=== PATIENT | male | born 2000 | race Caucasian/White ===

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

== ENCOUNTER 2020-10-10 10:08 | Emergency (ER) | payer BC, MEDICAID ==
[~2020-10-10] VITALS: Ht 185.4 cm; Wt 63.6 kg
[2020-10-10] MEDS ORDERED: METH4TAB10 PO (11:32)
[2020-10-10] MEDS ORDERED: NAPR-1071 PO (11:32)
--- NOTE | 2020-10-10 11:32 | ED Upper Extremity ---
General Chief Complaint: Upper Extremity Stated Complaint: L SHOULDER PAIN Nursing Triage Note: AMB TO ROOM REPORT ON SUN WOKE UP AND ARM WAS SORE UNABLE TO MOVE IT WITHOUT PAIN. HAS NOT TAKEN ANYTHING OTC FOR PAIN. HAS NOT GONE TO WORK Source: patient Exam Limitations: no limitations History of Present Illness Date Seen by Provider: Oct 10, 2020 Time Seen by Provider: 10:49 Initial Comments Patient presents ER by private conveyance from home with chief complaint of Friday he woke up with pain and weakness in his left arm. He did not take anything for it. It has only improved slightly today and he is able to move it but he has weakness on trying to abduct the left shoulder. He does not member any trauma he has not done any drinking or blackout. No previous injury to his neck or back. He says it hurts from the level of C2 laterally down to the trapezius and proximal to the acromioclavicular joint. He was having some paresthesias on Friday and yesterday but none today. 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 Allergies and Home Medications Allergies Coded Allergies: No Known Allergies (Unverified Allergy, Mild, 07/13/09) Home Medications Amoxicillin 875 Mg Tablet, 875 MG PO BID Prescribed by: MELISSA FLORENTINO on 03/03/151826 Patient Home Medication List Home Medication List Reviewed: Yes Review of Systems Constitutional: No chills, No diaphoresis EENTM: No ear discharge, No ear pain Respiratory: No cough, No short of breath Cardiovascular: No chest pain, No edema Gastrointestinal: No abdominal pain, No nausea, No vomiting Genitourinary: No discharge, No dysuria Musculoskeletal: No back pain; neck pain All Other Systems Reviewed Negative Unless Noted: Yes Past Xgqanoc-Elifos-Hhqciz Hx Patient Social History Tobacco Use?: No Substance use?: No Alcohol Use?: No Pt feels they are or have been: No Immunizations Up To Date Influenza Vaccine Up-to-Date: No; Not Current First/Initial COVID19 Vaccinat: NOT TAKEN Seasonal Allergies Seasonal Allergies: No Past Medical History Surgeries: No Respiratory: No Cardiac: No Neurological: No Gastrointestinal: No Musculoskeletal: No Endocrine: No Cancer: No Psychosocial: No Integumentary: No Physical Exam Vital Signs Vital Signs - First Documented 10/10/20 10:44 Temp 35.6 Pulse 85 Resp 18 B/P (MAP) 132/59 (83) Pulse Ox 100 O2 Delivery Room Air Capillary Refill : Less Than 3 Seconds Height, Weight, BMI Height: 5'7.00" Weight: 120lbs. 12.0oz. 54.234355xo; 18.00 BMI Method:Estimated General Appearance: WD/WN, no apparent distress HEENT: PERRL/EOMI, pharynx normal Neck: full range of motion, supple, normal inspection, tender lateral (Left side) Cardiovascular: normal peripheral pulses, regular rate, rhythm Respiratory: no respiratory distress, no accessory muscle use Back: normal inspection, no vertebral tenderness Shoulder: non-tender, asymmetry (Left shoulder droop), limited ROM (Difficulty abducting beyond 70 degrees), soft tissue tenderness (Top of the trapezius left side) Elbow/Forearm: normal inspection, non-tender, no evidence of injury, normal ROM, Right, Left, Bilateral Reflexes: 2+ bicep (R), 2+ bicep (L) Neurologic/Tendon: normal sensation, normal motor functions, normal tendon functions, responds to pain, no evidence tendon injury Neurologic/Psychiatric: alert, normal mood/affect, oriented x 3 Skin: normal color, warm/dry Progress/Results/Core Measures Results/Orders Vital Signs/I&O 10/10/20 10:44 Temp 35.6 Pulse 85 Resp 18 B/P (MAP) 132/59 (83) Pulse Ox 100 O2 Delivery Room Air Blood Pressure Mean: 83 Progress Progress Note : Time: 11:30 Progress Note I suspect he has a cervical radiculopathy from throwing heavy objects at work. He would best be served with a week of weight restriction on that side and a course of steroids and NSAIDs. We will have him follow-up in 1 to 2 weeks with primary care for reevaluation. Departure Impression Primary Impression: Left cervical radiculopathy Disposition: 01 HOME, SELF-CARE Condition: Stable Departure-Patient Inst. Decision time for Depature: 11:30 Referrals: JOSH JIMENEZ MD (PCP/Family) Primary Care Physician Patient Instructions: Radiculopathy (DC) Add. Discharge Instructions: Heat and topical creams can be helpful for your discomfort in your neck and shoulder. Tylenol 1000 mg every 8 hours as necessary for pain. Naproxen 500 mg twice a day for the next 1 to 2 weeks until the symptoms go away. Medrol Dosepak take as directed to reduce inflammation and swelling in your neck that is pinching on the nerve. If not seeing improvement in the first week then follow-up with your primary care doctor for reevaluation and further management. Do not lift greater than 20 pounds with your left arm for the next 1 week. All discharge instructions reviewed with patient and/or family. Voiced understanding. Scripts Naproxen (Naprosyn) 500 Mg Tablet 500 MG PO BID for 14 Days, #30 TAB 0 Refills Prov: SCHUYLER MURRAY 10/10/20 Methylprednisolone (Methylprednisolone Dose Pack) 4 Mg Tab.ds.pk 4 MG PO UD for 6 Days, #21 PKG 0 Refills PER DOSE PACK INSTRUCTIONS Prov: SCHUYLER MURRAY 10/10/20 Work/School Note: Work Release Form Date Seen in the Emergency Department: Oct 10, 2020 Return to Work: Oct 11, 2020 Restrictions: Need Release from Doctor Other Restrictions Listed Below: Do not lift more than 20 pounds with left arm until 10/17/2020. SCHUYLER MURRAY Oct 10, 2020 11:32
[2020-10-10 11:41] VITALS: BP 132/59
== END 2020-10-10 11:41 | disposition home or self-care (01) ==
LOC: EDUNIT# 10:08 → ER 10:10
DX: M54.12 Radiculopathy, cervical region (principal)
CPT/HCPCS: 99282

== ENCOUNTER 2021-04-04 19:21 | Emergency (ER) | payer SELFPAY ==
[~2021-04-04] VITALS: Ht 185 cm; Wt 63.5 kg
[~2021-04-04 19:21] MED LIST changes: +METH4TAB10 PO; +NAPR-1071 PO
[2021-04-04 19:57] LABS: BASOPHILS % (AUTO) 1 % (0-10); EOSINOPHILS % (AUTO) 0 % (0-10); HEMATOCRIT 47 % (40-54); HEMOGLOBIN 16.2 g/dL (13.3-17.7); LYMPHOCYTES # (AUTO) 1.5 10^3/uL (1.0-4.0); LYMPHOCYTES % (AUTO) 24 % (12-44); MEAN CORPUSCULAR HEMOGLOBIN 30 pg (25-34); MEAN CORPUSCULAR HGB CONC 35 g/dL (32-36); MEAN CORPUSCULAR VOLUME 87 fL (80-99); MEAN PLATELET VOLUME 9.6 fL (9.0-12.2); MONOCYTES # (AUTO) 0.6 10^3/uL (0.0-1.0); MONOCYTES % (AUTO) 10 % (0-12); NEUTROPHILS % (AUTO) 65 % (42-75); PLATELET COUNT 272 10^3/uL (130-400); WHITE BLOOD COUNT 6.2 10^3/uL (4.3-11.0)
--- NOTE | 2021-04-04 20:06 | ED Chest Pain ---
General Chief Complaint: Chest Pain Stated Complaint: CHEST PAIN Source: patient Exam Limitations: no limitations History of Present Illness Date Seen by Provider: Apr 04, 2021 Time Seen by Provider: 19:39 Initial Comments Patient ER by private conveyance with chief complaint about 2 to 3 days of left- sided chest pain sometimes radiating through to the right side of his chest. Nursing reports his heart rate is around 105 on arrival and since she started an IV his heart rate jumped up to the 1 25-1 30 range. Patient states he has a lot of anxiety and he feels that has been out of control lately. He has not followed with a doctor since he was a teenager and then it was Dr. Dockery. He does not take any medicines routinely. He does smoke certain varieties of marijuana/cannabis in order to control his anxiety at home. He denies any other recreational drugs or stimulants. He occasionally drinks with his last drink being over a week ago. He does not smoke cigarettes but he does vape nicotine. He is not had any fevers chills nausea vomiting coughs malaise body aches or other symptoms of sickness. No drinking from unsafe water sources or travel abroad recently. He has not been vaccinated for COVID-19 or influenza. He had no known sick contacts. No history of heart problems or dysrhythmias. No known history of hypertension, hyperlipidemia, diabetes or primary family early onset coronary disease. Allergies and Home Medications Allergies Coded Allergies: No Known Allergies (Unverified Allergy, Mild, 07/13/09) Patient Home Medication List Home Medication List Reviewed: Yes Amoxicillin (Amoxicillin) 875 Mg Tablet, 875 MG PO BID Prescribed by: MELISSA FLORENTINO on 03/03/151826 Methylprednisolone (Methylprednisolone Dose Pack) 4 Mg Tab.ds.pk, 4 MG PO UD Prescribed by: SCHUYLER MURRAY on 10/10/20 1132 Naproxen (Naprosyn) 500 Mg Tablet, 500 MG PO BID Prescribed by: SCHUYLER MURRAY on 10/10/20 1132 Review of Systems Review of Systems Constitutional: No chills, No fever, No malaise, No weakness EENTM: No Blurred Vision, No Double Vision Respiratory: Denies Cough, Denies Orthopnea Cardiovascular: See HPI, Chest Pain; Denies Irregular Heart Rate, Denies Lightheadedness, Denies Palpitations, Denies Syncope Gastrointestinal: Denies Constipated, Denies Diarrhea, Denies Difficulty Swallowing, Denies Nausea, Denies Poor Appetite Genitourinary: Denies Discharge, Denies Drainage Musculoskeletal: No back pain, No joint pain All Other Systems Reviewed Negative Unless Noted: Yes Past Qoxyrmk-Ybfxni-Hwmaak Hx Patient Social History Tobacco Use?: No Use of E-Cig and/or Vaping dev: Yes E-Cig or Vaping type used: Nicotine Substance use?: Yes Substance type: Marijuana Substance frequency: Daily Alcohol Use?: Yes Alcohol type: Beer Alcohol Frequency: Several times a month Seasonal Allergies Seasonal Allergies: No Past Medical History Surgeries: No Respiratory: No Cardiac: No Neurological: No Gastrointestinal: No Musculoskeletal: No Endocrine: No Cancer: No Psychosocial: No Integumentary: No Physical Exam Vital Signs Vital Signs - First Documented 04/04/21 19:31 Temp 36.8 Pulse 106 Resp 20 B/P (MAP) 134/81 (98) Pulse Ox 97 O2 Delivery Room Air Capillary Refill : Height, Weight, BMI Height: 5'7.00" Weight: 120lbs. 12.0oz. 54.819568cy; 18.00 BMI Method:Estimated General Appearance: Anxious, Mild Distress, Thin HEENT: PERRL/EOMI, TMs Normal, Normal ENT Inspection, Pharynx Normal, Moist Mucous Membranes Neck: Full Range of Motion, Normal Inspection, Non Tender Respiratory: Lungs Clear, Normal Breath Sounds, No Accessory Muscle Use, No Respiratory Distress Cardiovascular: Regular Rate, Rhythm, No Edema, No Murmur, Normal Peripheral Pulses Gastrointestinal: Normal Bowel Sounds, No Organomegaly, Non Tender, Soft Extremity: Normal Capillary Refill, Normal Inspection, Normal Range of Motion, Non Tender, No Calf Tenderness, No Pedal Edema Neurologic/Psychiatric: Alert, Oriented x3, No Motor/Sensory Deficits Skin: Normal Color, Warm/Dry Progress/Results/Core Measures Results/Orders Lab Results Laboratory Tests Test 04/04/21 19:40 Range/Units White Blood Count 6.2 4.3-11.0 10^3/uL Red Blood Count 5.37 4.30-5.52 10^6/uL Hemoglobin 16.2 13.3-17.7 g/dL Hematocrit 47 40-54 % Mean Corpuscular Volume 87 80-99 fL Mean Corpuscular Hemoglobin 30 25-34 pg Mean Corpuscular Hemoglobin Concent 35 32-36 g/dL Red Cell Distribution Width 11.9 10.0-14.5 % Platelet Count 272 130-400 10^3/uL Mean Platelet Volume 9.6 9.0-12.2 fL Immature Granulocyte % (Auto) 0 % Neutrophils (%) (Auto) 65 42-75 % Lymphocytes (%) (Auto) 24 12-44 % Monocytes (%) (Auto) 10 0-12 % Eosinophils (%) (Auto) 0 0-10 % Basophils (%) (Auto) 1 0-10 % Neutrophils # (Auto) 4.0 1.8-7.8 10^3/uL Lymphocytes # (Auto) 1.5 1.0-4.0 10^3/uL Monocytes # (Auto) 0.6 0.0-1.0 10^3/uL Eosinophils # (Auto) 0.0 0.0-0.3 10^3/uL Basophils # (Auto) 0.0 0.0-0.1 10^3/uL Immature Granulocyte # (Auto) 0.0 0.0-0.1 10^3/uL D-Dimer <= 0.27 0.00-0.49 UG/ML Sodium Level 140 135-145 MMOL/L Potassium Level 3.6 3.6-5.0 MMOL/L Chloride Level 104 98-107 MMOL/L Carbon Dioxide Level 23 21-32 MMOL/L Anion Gap 13 5-14 MMOL/L Blood Urea Nitrogen 10 7-18 MG/DL Creatinine 0.98 0.60-1.30 MG/DL Estimat Glomerular Filtration Rate 98 BUN/Creatinine Ratio 10 Glucose Level 98 70-105 MG/DL Calcium Level 9.7 8.5-10.1 MG/DL Corrected Calcium 8.5-10.1 MG/DL Total Bilirubin 0.5 0.1-1.0 MG/DL Aspartate Amino Transf (AST/SGOT) 20 5-34 U/L Alanine Aminotransferase (ALT/SGPT) 17 0-55 U/L Alkaline Phosphatase 69 40-136 U/L Troponin I < 0.028 <0.028 NG/ML C-Reactive Protein High Sensitivity 0.03 0.00-0.50 MG/DL Total Protein 7.8 6.4-8.2 GM/DL Albumin 4.9 H 3.2-4.5 GM/DL My Orders Orders - TREVOR,SCHUYLER J Continuous Ekg Monitoring (04/04/21 19:47) Ekg Tracing (04/04/21 19:47) Cbc With Automated Diff (04/04/21 19:47) Comprehensive Metabolic Panel (04/04/21 19:47) Hs C Reactive Protein (04/04/21 19:47) Chest 1 View, Ap/Pa Only (04/04/21 19:47) Troponin I Christiano (04/04/21 19:47) Fibrin Degradation Products (04/04/21 19:47) Ed Iv/Invasive Line Start (04/04/21 20:11) Lactated Ringers (Lr 1000 Ml Iv Solution (04/04/21 20:15) Medications Given in ED Current Medications Medications Dose Ordered Sig/Maite Route Start Time Stop Time Status Last Admin Dose Admin Lactated Ringer's 1,000 ml @ 0 mls/hr Q0M ONCE IV 04/04/21 20:15 04/04/21 20:16 DC 04/04/21 20:50 0 MLS/HR Vital Signs/I&O 04/04/21 19:31 Temp 36.8 Pulse 106 Resp 20 B/P (MAP) 134/81 (98) Pulse Ox 97 O2 Delivery Room Air Progress Progress Note #1: Time: 20:10 Progress Note The patient is very thin but appears well-hydrated. We will give him a liter of lactated Ringer's check an EKG and some labs. Likely this is anxiety however we will get a D-dimer and troponin. Just sinus tachycardia on the strip. Progress Note #2: Time: 22:04 Progress Note After fluids patient's heart rate is in the 90s however soon as I enter the room it Jumps up to 110 115 heart rate. He appears rather anxious. We will recommend hydroxyzine in case he gets out of control. We suggest follow-up with primary care to explore thyroid and other reasons might contribute to his symptoms. If no significant pathology is found then we have encouraged him to discuss antianxiety medications with primary care. Patient states this is a good idea and agrees with plan. Return precautions were discussed. He is not having any chest pain at this time Initial ECG Impression Date: Apr 04, 2021 Initial ECG Impression Time: 19:32 Initial ECG Rate: 108 Initial ECG Rhythm: S.Tach Initial ECG Intervals: Normal Initial ECG Impression: Normal Comment Sinus tachycardia without clinically relevant ST elevation or depression. LVH noted. High amplitude waves likely due to his thin body habitus. Diagnostic Imaging Diagonstic Imaging: Xray Plain Films/CT/US/NM/MRI: chest Comments [facility] [place], [place] NAME: DONNA FAIR MED REC#: [id number] PT STATUS: REG ER : 2000 PHYSICIAN: SCHUYLER MURRAY MD ADMIT DATE: 04/04/21/ER Draft Date of Exam:04/04/21 CHEST 1 VIEW, AP/PA ONLY CLINICAL INDICATIONS: Patient with shortness of air and chest pain. EXAM: Portable chest x-ray upright view. COMPARISON: None. FINDINGS: Lungs/pleura: Lungs are clear. There is no pneumothorax. There is no pleural effusion. Mediastinum: Unremarkable. Pulmonary vasculature: Unremarkable. Heart: Unremarkable. Bones/extrathoracic soft tissue: Unremarkable. IMPRESSION: There is no radiographic evidence of acute cardiopulmonary process. Dictated on workstation # [id number] Dict: 04/04/212016 Trans: 04/04/212022 CV [id number] Interpreted by: HARLAN BALLARD MD Electronically signed by: Reviewed: Reviewed by Me Departure Impression Primary Impression: Chest wall pain Additional Impression: Anxiety Disposition: 01 HOME, SELF-CARE Condition: Stable Departure-Patient Inst. Decision time for Depature: 22:06 Referrals: JOSH JIMENEZ MD (PCP/Family) Primary Care Physician Patient Instructions: Chest Pain That Is Not Caused by the Heart (DC), Anxiety, Adult (DC) Add. Discharge Instructions: Drink plenty of fluids. Discuss your symptoms with your primary care doctor and see whether work-up might be indicated on an outpatient basis. Discuss whether preventative medication for anxiety might be beneficial to you. If you have severe anxiety attack again you can take 1 tablet of hydroxyzine, 25 mg every 6 hours. If you not seeing some results in 30 minutes then you may take a second tablet. All discharge instructions reviewed with patient and/or family. Voiced understanding. Scripts Hydroxyzine HCl (Hydroxyzine HCl) 25 Mg Tablet 25-50 MG PO Q6H PRN for ANXIETY, #20 TAB 0 Refills Prov: SCHUYLER MURRAY 04/04/21 Copy Copies To 1: JOSH JIMENEZ MD, TITUS J Apr 04, 2021 20:06
[2021-04-04 20:07] LABS: ALANINE AMINOTRANSFERASE 17 U/L (0-55); ALBUMIN 4.9 GM/DL (3.2-4.5); ALKALINE PHOSPHATASE 69 U/L (40-136); BILIRUBIN,TOTAL 0.5 MG/DL (0.1-1.0); BUN/CREATININE RATIO 10; CALCIUM 9.7 MG/DL (8.5-10.1); CARBON DIOXIDE 23 MMOL/L (21-32); CREATININE SERUM 0.98 MG/DL (0.60-1.30); GFR ESTIMATED 98; GLUCOSE 98 MG/DL (70-105); TOTAL PROTEIN 7.8 GM/DL (6.4-8.2)
[2021-04-04] MEDS ORDERED: LACTATED RINGERS 1,000 ML IV ONE (20:15)
[2021-04-04 20:24] LABS: CHLORIDE 104 MMOL/L (98-107); POTASSIUM 3.6 MMOL/L (3.6-5.0); SODIUM 140 MMOL/L (135-145)
--- NOTE | 2021-04-04 20:24 | Diagnostic Imaging Report ---
CLINICAL INDICATIONS: Patient with shortness of air and chest pain. EXAM: Portable chest x-ray upright view. COMPARISON: None. FINDINGS: Lungs/pleura: Lungs are clear. There is no pneumothorax. There is no pleural effusion. Mediastinum: Unremarkable. Pulmonary vasculature: Unremarkable. Heart: Unremarkable. Bones/extrathoracic soft tissue: Unremarkable. IMPRESSION: There is no radiographic evidence of acute cardiopulmonary process. Dictated by: Dictated on workstation # [id number]
[2021-04-04] MEDS ORDERED: HYDR-700 PO (22:07)
[2021-04-04] MEDS ORDERED: hydrOXYzine (VISTARIL/ATARAX) 25 MG capsule/tablet PO ONE (22:15)
[2021-04-04 22:20] VITALS: BP 139/85
== END 2021-04-04 22:20 | disposition home or self-care (01) ==
LOC: EDUNIT# 19:21 → ER 19:23
DX: R07.89 Other chest pain (principal); F41.9 Anxiety disorder, unspecified
CPT/HCPCS: 36415; 71045; 80053; 84484; 85025; 85379; 86141; 93005

== ENCOUNTER 2021-09-28 16:42 | Emergency (ER) | payer SELFPAY ==
[~2021-09-28] VITALS: Ht 172.7 cm; Wt 61.2 kg
[~2021-09-28 16:42] MED LIST changes: +HYDR-700 PO
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
[2021-09-28] MEDS ORDERED: KETOROLAC 60 MG/2 ML VIAL IM ONE (17:00)
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
[2021-09-28] MEDS ORDERED: IBUPROFEN 800 MG (MOTRIN) TAB PO ONE ×2 (17:22→17:30)
[2021-09-28] MEDS ORDERED: ACETAMINOPHEN 325 MG TABLET ONE (17:22)
[2021-09-28] MEDS ORDERED: ACETAMINOPHEN 325 MG TABLET PO ONE (17:30)
[2021-09-28 18:03] VITALS: BP 127/68
== END 2021-09-28 18:03 | disposition home or self-care (01) ==
LOC: EDUNIT# 16:42 → ER 16:44
DX: S20.211A Contusion of right front wall of thorax, initial encounter (principal); Z28.310 Unvaccinated for COVID-19; Y04.2XXA Assault by strike against or bumped into by another person, initial encounter
CPT/HCPCS: 71046

== ENCOUNTER 2022-08-23 23:45 | Inpatient (IN) | payer SELFPAY ==
[~2022-08-23] VITALS: Ht 182.9 cm; Wt 75.7 kg
[2022-08-24] VITALS (12 sets, daily range): BP systolic 123–173; BP diastolic 82–111
--- NOTE | 2022-08-24 00:07 | ED Abdominal Pain ---
General Chief Complaint: Abdominal/GI Problems Stated Complaint: ABD PAIN Nursing Triage Note: left sided abdominal pain x2 days, worse x1hr. vomitting, decreased po intake. constipation. Source of Information: Patient Exam Limitations: No Limitations History of Present Illness Date Seen by Provider: August 23, 2022 Time Seen by Provider: 23:59 Initial Comments This 21-year-old young man presents to the emergency room with complaints of ep igastric and left upper quadrant pain with nausea and vomiting. He has had the pain for a few days but the vomiting started tonight. He had diarrhea this morning as well. He took Pepto-Bismol without any improvement. He reports drinking vodka, usually about 10 shots per day. He stopped drinking alcohol for a couple of days and then resumed tonight prior to the vomiting starting. He denies any drug use. He denies any other medical problems and has no local medical provider. Allergies and Home Medications Allergies Coded Allergies: NKANo Known Allergies (Unverified Allergy, Mild, 07/13/09) Patient Home Medication List Home Medication List Reviewed: Yes No Active Prescriptions or Reported Meds Review of Systems Review of Systems Constitutional: no symptoms reported EENTM: No Symptoms Reported Respiratory: No Symptoms Reported Cardiovascular: No Symptoms Reported Gastrointestinal: See HPI Genitourinary: No Symptoms Reported Musculoskeletal: no symptoms reported Skin: no symptoms reported Psychiatric/Neurological: No Symptoms Reported Endocrine: No Symptoms Reported Hematologic/Lymphatic: No Symptoms Reported Past Dwdybqg-Fjgqzw-Fdtwjj Hx Patient Social History Tobacco Use?: Yes Use of E-Cig and/or Vaping dev: Yes E-Cig or Vaping type used: Nicotine Use of E-Cig and/or Vaping Mirza: Current Everyday User Substance use?: No Alcohol Use?: Yes Alcohol type: Hard Liquor Alcohol Frequency: Daily Pt feels they are or have been: No Immunizations Up To Date First/Initial COVID19 Vaccinat: x2 Seasonal Allergies Seasonal Allergies: No Past Medical History Surgery/Hospitalization HX: denies Surgeries: No Respiratory: No Cardiac: No Neurological: No Gastrointestinal: No Musculoskeletal: No Endocrine: No Cancer: No Psychosocial: No Integumentary: No Physical Exam Vital Signs Vital Signs - First Documented 08/23/22 23:50 Temp 36.3 Pulse 106 Resp 22 B/P (MAP) 175/92 (119) Pulse Ox 97 O2 Delivery Room Air Capillary Refill : Less Than 3 Seconds Height/Weight/BMI Height: 5'7.00" Weight: 120lbs. 12.0oz. 54.643463um; 19.00 BMI Method:Estimated General Appearance: WD/WN, mild distress HEENT: PERRL/EOMI, normal ENT inspection Neck: normal inspection Respiratory: lungs clear, normal breath sounds, no respiratory distress Cardiovascular: no edema, no murmur, tachycardia Gastrointestinal: soft, abnormal bowel sounds (Decreased); No distended; guarding (In the epigastrium), tenderness (Epigastrium and left upper quadrant) Extremities: normal inspection, no pedal edema Neurologic/Psychiatric: no motor/sensory deficits, alert, oriented x 3, other (Somewhat anxious) Skin: normal color, warm/dry Progress/Results/Core Measures Results/Orders Lab Results Laboratory Tests Test 08/23/22 23:56 08/24/22 00:12 Range/Units Urine Color YELLOW Urine Clarity CLEAR Urine pH 6.0 5-9 Urine Specific Cash 1.010 L 1.016-1.022 Urine Protein 1+ H NEGATIVE Urine Glucose (UA) NEGATIVE NEGATIVE Urine Ketones NEGATIVE NEGATIVE Urine Nitrite NEGATIVE NEGATIVE Urine Bilirubin NEGATIVE NEGATIVE Urine Urobilinogen 0.2 < = 1.0 MG/DL Urine Leukocyte Esterase NEGATIVE NEGATIVE Urine RBC (Auto) TRACE-I H NEGATIVE Urine RBC RARE /HPF Urine WBC NONE /HPF Urine Crystals NONE /LPF Urine Bacteria NEGATIVE /HPF Urine Casts PRESENT /LPF Urine Hyaline Casts RARE /LPF Urine Mucus NEGATIVE /LPF Urine Culture Indicated NO White Blood Count 11.8 H 4.3-11.0 10^3/uL Red Blood Count 6.10 H 4.30-5.52 10^6/uL Hemoglobin 18.8 H 13.3-17.7 g/dL Hematocrit 52 40-54 % Mean Corpuscular Volume 85 80-99 fL Mean Corpuscular Hemoglobin 31 25-34 pg Mean Corpuscular Hemoglobin Concent 36 32-36 g/dL Red Cell Distribution Width 11.8 10.0-14.5 % Platelet Count 274 130-400 10^3/uL Mean Platelet Volume 9.2 9.0-12.2 fL Immature Granulocyte % (Auto) 1 % Neutrophils (%) (Auto) 72 42-75 % Lymphocytes (%) (Auto) 17 12-44 % Monocytes (%) (Auto) 9 0-12 % Eosinophils (%) (Auto) 1 0-10 % Basophils (%) (Auto) 1 0-10 % Neutrophils # (Auto) 8.5 H 1.8-7.8 10^3/uL Lymphocytes # (Auto) 2.0 1.0-4.0 10^3/uL Monocytes # (Auto) 1.1 H 0.0-1.0 10^3/uL Eosinophils # (Auto) 0.1 0.0-0.3 10^3/uL Basophils # (Auto) 0.1 0.0-0.1 10^3/uL Immature Granulocyte # (Auto) 0.1 0.0-0.1 10^3/uL Sodium Level 144 135-145 MMOL/L Potassium Level 3.5 L 3.6-5.0 MMOL/L Chloride Level 105 98-107 MMOL/L Carbon Dioxide Level 22 21-32 MMOL/L Anion Gap 17 H 5-14 MMOL/L Blood Urea Nitrogen 7 7-18 MG/DL Creatinine 1.10 0.60-1.30 MG/DL Estimat Glomerular Filtration Rate 98 BUN/Creatinine Ratio 6 Glucose Level 115 H 70-105 MG/DL Calcium Level 10.3 H 8.5-10.1 MG/DL Corrected Calcium 8.5-10.1 MG/DL Magnesium Level 2.0 1.6-2.4 MG/DL Total Bilirubin 0.4 0.1-1.0 MG/DL Aspartate Amino Transf (AST/SGOT) 128 H 5-34 U/L Alanine Aminotransferase (ALT/SGPT) 189 H 0-55 U/L Alkaline Phosphatase 92 40-136 U/L C-Reactive Protein High Sensitivity 1.80 H 0.00-0.50 MG/DL Total Protein 8.3 H 6.4-8.2 GM/DL Albumin 5.0 H 3.2-4.5 GM/DL Lipase 45506 H 8-78 U/L Serum Alcohol 79 H <10 MG/DL My Orders Orders - CASSIE SWEENEY MD Alcohol (08/24/22 00:05) Cbc With Automated Diff (08/24/22 00:05) Comprehensive Metabolic Panel (08/24/22 00:05) Lipase (08/24/22 00:05) Magnesium (08/24/22 00:05) Ua Culture If Indicated (08/24/22 00:05) Ed Iv/Invasive Line Start (08/24/22 00:05) Lactated Ringers (Lr 1000 Ml Iv Solution (08/24/22 00:15) Ondansetron Injection (Zofran Injectio (08/24/22 00:15) Pantoprazole Injection (Protonix Injecti (08/24/22 00:15) Fentanyl Inj (Sublimaze Injection) (08/24/22 00:15) Hs C Reactive Protein (08/24/22 00:43) Lactated Ringers (Lr 1000 Ml Iv Solution (08/24/22 01:30) Morphine Injection (Morphine Injection (08/24/22 01:27) Medications Given in ED Current Medications Medications Dose Ordered Sig/Maite Route Start Time Stop Time Status Last Admin Dose Admin Fentanyl Citrate 50 mcg ONCE ONCE IVP 08/24/22 00:15 08/24/22 00:16 DC 08/24/22 00:16 50 MCG Lactated Ringer's 1,000 ml @ 0 mls/hr Q0M ONCE IV 08/24/22 00:15 08/24/22 00:16 DC 08/24/22 00:16 0 MLS/HR Lactated Ringer's 1,000 ml @ 0 mls/hr Q0M ONCE IV 08/24/22 01:30 08/24/22 01:31 DC 08/24/22 01:34 0 MLS/HR Ondansetron HCl 8 mg ONCE ONCE IVP 08/24/22 00:15 08/24/22 00:16 DC 08/24/22 00:17 8 MG Pantoprazole 40 mg ONCE ONCE IV 08/24/22 00:15 08/24/22 00:16 DC 08/24/22 00:16 40 MG Vital Signs/I&O 08/23/22 23:50 Temp 36.3 Pulse 106 Resp 22 B/P (MAP) 175/92 (119) Pulse Ox 97 O2 Delivery Room Air Blood Pressure Mean: 119 Progress Progress Note : Progress Note Patient was initially treated with Zofran, Protonix, fentanyl, and a liter of LR. He had some improvement in symptoms. Pain quickly rebounded and was treated further with morphine. A second liter of IV fluid was administered. Labs were obtained and were reviewed and interpreted by me. Serum alcohol was 79. CBC demonstrated mild leukocytosis at 11.8. Chemistry demonstrated elevated transaminases. Lipase was pending at the time of admission. It was requiring dilution due to markedly elevated level. Admission for pancreatitis and monitoring for alcohol withdrawal was sought. Case was discussed with Dr. Siddiqi. Departure Communication (Admissions) Time/Spoke to Admitting Phy: 01:30 Dr. Siddiqi Impression Primary Impression: Acute pancreatitis Qualified Codes: K85.20 - Alcohol induced acute pancreatitis without necrosis or infection Additional Impressions: Nausea & vomiting Qualified Codes: R11.2 - Nausea with vomiting, unspecified Alcohol dependence Qualified Codes: F10.29 - Alcohol dependence with unspecified alcohol- induced disorder Disposition: ADMITTED INPATIENT Condition: Stable Admissions Decision to Admit Reason: Admit from ER (General) Decision to Admit/Date: August 24, 2022 Time/Decision to Admit Time: 01:30 Departure-Patient Inst. Referrals: [facility] (PCP/Family) Primary Care Physician Scripts No Active Prescriptions or Reported Meds CASSIE SWEENEY MD August 24, 2022 00:07
[2022-08-24] MEDS ORDERED: PANTOPRAZOLE 40 MG (PROTONIX) VIAL IV ONE (00:15)
[2022-08-24] MEDS ORDERED: fentaNYL INJ 100 MCG/2 ML AMP IVP ONE (00:15)
[2022-08-24] MEDS ORDERED: LACTATED RINGERS 1,000 ML IV ONE ×3 (00:15→10:00)
[2022-08-24] MEDS ORDERED: ONDANSETRON 4 MG/2 ML (SDV) Z0FRAN IVP ONE (00:15)
[2022-08-24 00:17] LABS: BILIRUBIN,URINE NEGATIVE (NEGATIVE); CLARITY,URINE CLEAR; COLOR,URINE YELLOW; GLUCOSE, URINE (UA) NEGATIVE (NEGATIVE); KETONES,URINE NEGATIVE (NEGATIVE); LEUKOCYTE ESTERASE ,URINE NEGATIVE (NEGATIVE); NITRITE,URINE NEGATIVE (NEGATIVE); PROTEIN,URINE 1+ (NEGATIVE)
[2022-08-24 00:25] LABS: BACTERIA,URINE NEGATIVE /HPF; HYALINE CASTS, URINE RARE /LPF; RBC,URINE RARE /HPF
[2022-08-24 00:26] LABS: BASOPHILS # (AUTO) 0.1 10^3/uL (0.0-0.1); BASOPHILS % (AUTO) 1 % (0-10); EOSINOPHILS # (AUTO) 0.1 10^3/uL (0.0-0.3); EOSINOPHILS % (AUTO) 1 % (0-10); HEMATOCRIT 52 % (40-54); HEMOGLOBIN 18.8 g/dL (13.3-17.7); LYMPHOCYTES % (AUTO) 17 % (12-44); MEAN CORPUSCULAR HEMOGLOBIN 31 pg (25-34); MEAN CORPUSCULAR HGB CONC 36 g/dL (32-36); MEAN CORPUSCULAR VOLUME 85 fL (80-99); MEAN PLATELET VOLUME 9.2 fL (9.0-12.2); MONOCYTES # (AUTO) 1.1 10^3/uL (0.0-1.0); MONOCYTES % (AUTO) 9 % (0-12); NEUTROPHILS # (AUTO) 8.5 10^3/uL (1.8-7.8); NEUTROPHILS % (AUTO) 72 % (42-75); PLATELET COUNT 274 10^3/uL (130-400); WHITE BLOOD COUNT 11.8 10^3/uL (4.3-11.0)
[2022-08-24 00:34] LABS: CHLORIDE 105 MMOL/L (98-107); POTASSIUM 3.5 MMOL/L (3.6-5.0); SODIUM 144 MMOL/L (135-145)
[2022-08-24 00:36] LABS: CALCIUM 10.3 MG/DL (8.5-10.1)
[2022-08-24 00:37] LABS: GLUCOSE 115 MG/DL (70-105); TOTAL PROTEIN 8.3 GM/DL (6.4-8.2)
[2022-08-24 00:38] LABS: CARBON DIOXIDE 22 MMOL/L (21-32)
[2022-08-24 00:39] LABS: BILIRUBIN,TOTAL 0.4 MG/DL (0.1-1.0)
[2022-08-24 00:40] LABS: ALKALINE PHOSPHATASE 92 U/L (40-136)
[2022-08-24 00:41] LABS: GFR ESTIMATED 98
[2022-08-24 00:42] LABS: BUN/CREATININE RATIO 6
[2022-08-24 00:43] LABS: ALANINE AMINOTRANSFERASE 189 U/L (0-55)
[2022-08-24] MEDS ORDERED: morphine INJ 10 MG/ML 1ML (SYR OR VIAL) IVP STA (01:27)
[2022-08-24] MEDS ORDERED: LORazepam INJ 2 MG/ML (ATIVAN) VIAL IM/IV PRN (02:00)
[2022-08-24] MEDS ORDERED: ANTACID SUSP 30 ML UDC (MYLANTA) PO PRN (02:00)
[2022-08-24] MEDS ORDERED: D5 1/2 NS 1000 ML IV SOLUTION 1,000 ML IV PRN (02:00)
[2022-08-24] MEDS ORDERED: D5 1/2 NS W/KCL 20 MEQ/L 1,000 ML IV SCH (02:00)
[2022-08-24] MEDS ORDERED: 1/2 NS IV SOLUTION 1,000 ML IV PRN (02:00)
[2022-08-24] MEDS ORDERED: PROMETHAZINE INJ 25 MG/ML (PHENERGAN) AMP IVP PRN (02:00)
[2022-08-24] MEDS ORDERED: SENNA W/DOCUSATE (SENOKOT S) TABLET PO PRN (02:00)
[2022-08-24] MEDS: morphine INJ 4 MG/ML 1 ML (VIAL/SYRINGE) IV PRN ×4 (02:26→07:53)
[2022-08-24 02:28] LABS: LIPASE 16548 U/L (8-78)
--- NOTE | 2022-08-24 02:33 | Tele-ICU Consult ---
Progress Note 21 yo M NEW ICU admission and TeleICU evaluation admitted from ED with alcoholic pancreatitis. Video assessment. NAD. IV fluids, potassium, ban bag CIWA protocol (-) sepsis screen Plan of care per Dr. Siddiqi. No plans for imaging. Maybe at least get Abd XR Diagnosis: Alcoholic pancreatitis A total of _ 12_ minutes of critical care time was devoted to this patient, including reviewing this patient's available data, including medical history, events of note and test results. This was required to treat and/or prevent further deterioration of critical care conditions ( as above ). Service provided to a patient admitted to ICU bed via interactive E-CARE system with real-time audio and video telecommunications from [facility] tele-ICU hub located in [place], [place] JANINE THAKKAR MD August 24, 2022 02:33
[2022-08-24] MEDS: LORazepam INJ 2 MG/ML (ATIVAN) VIAL IV PRN ×6 (02:36→19:57)
[2022-08-24 05:04] LABS: BASOPHILS % (AUTO) 0 % (0-10); EOSINOPHILS % (AUTO) 0 % (0-10); HEMATOCRIT 50 % (40-54); HEMOGLOBIN 17.8 g/dL (13.3-17.7); LYMPHOCYTES # (AUTO) 0.7 10^3/uL (1.0-4.0); LYMPHOCYTES % (AUTO) 7 % (12-44); MEAN CORPUSCULAR HEMOGLOBIN 31 pg (25-34); MEAN CORPUSCULAR HGB CONC 36 g/dL (32-36); MEAN CORPUSCULAR VOLUME 86 fL (80-99); MEAN PLATELET VOLUME 9.6 fL (9.0-12.2); MONOCYTES # (AUTO) 0.7 10^3/uL (0.0-1.0); MONOCYTES % (AUTO) 7 % (0-12); NEUTROPHILS # (AUTO) 8.8 10^3/uL (1.8-7.8); NEUTROPHILS % (AUTO) 85 % (42-75); PLATELET COUNT 225 10^3/uL (130-400); WHITE BLOOD COUNT 10.3 10^3/uL (4.3-11.0)
[2022-08-24 05:17] LABS: INR 0.9 (0.8-1.4); PROTHROMBIN TIME PATIENT 12.8 SEC (12.2-14.7)
[2022-08-24 05:22] LABS: ALBUMIN 4.2 GM/DL (3.2-4.5); BILIRUBIN,TOTAL 0.5 MG/DL (0.1-1.0); CALCIUM 9.2 MG/DL (8.5-10.1); CREATININE SERUM 0.98 MG/DL (0.60-1.30); POTASSIUM 3.8 MMOL/L (3.6-5.0)
[2022-08-24 05:51] LABS: LYMPHOCYTES % (MANUAL) 6 %; MONOCYTES % (MANUAL) 6 %; NEUTROPHILS % (MANUAL) 88 %; RBC MORPH NORMAL
--- NOTE | 2022-08-24 06:25 | Diagnostic Imaging Report ---
EXAMINATION: Abdomen 1 view HISTORY: Abdominal pain COMPARISON: None available. FINDINGS: There is a moderate amount of gas and stool throughout the colon. Nonobstructive bowel gas pattern. No radiopaque foreign body. The lung bases are clear. The osseous structures are intact. IMPRESSION: Moderate stool burden without other acute abnormality in the abdomen. Dictated by: Dictated on workstation # [id number]
[2022-08-24] MEDS: THIAMINE INJECTION 100 MG, FOLIC ACID INJECTION 1 MG, MAGNESIUM SULFATE 2 GM, VITAMIN M... IV SCH ×5 (08:53)
[2022-08-24] MEDS: LACTATED RINGERS 1,000 ML IV SCH ×3 (09:05→21:00)
[2022-08-24] MEDS ORDERED: hydrALAZINE (APESOLINE) 20 MG/ML VIAL IV ONE (09:45)
[2022-08-24] MEDS: HYDROmorphone 2 MG/ML VIAL (DILAUDID) IV PRN ×5 (09:48→22:28)
[2022-08-24] MEDS: PANTOPRAZOLE 40 MG (PROTONIX) VIAL IV SCH (09:48)
[2022-08-24] MEDS ORDERED: LACTATED RINGERS 1,000 ML IV SCH (21:00)
--- NOTE | 2022-08-24 21:01 | History & Physical-Hospitalist ---
History of Present Illness HPI/Chief Complaint Asif Preciado is a 21 year old male who presented with abdominal pain. The pain is diffuse but more sharp in the epigastric region. He has also had nausea and vomiting. He denies fevers and chills. He drinks most days. He reports having about 10 drinks yesterday. He denies any history of alcohol withdrawal. He has no history of pancreatitis. Source: patient Exam Limitations: no limitations Date Seen 08/24/22 Time Seen by a Provider: 09:20 Attending Physician [facility] PCP Admitting Physician: Aracelis Ghosh MD Attending Physician: Aracelis Ghosh MD Referring Physician Date of Admission August 24, 2022 at 01:40 Home Medications & Allergies Home Medications Reviewed patient Home Medication Reconciliation performed by pharmacy medication reconciliations lab animal technician and/or nursing. Patients Allergies have been reviewed. Allergies Allergies Coded Allergies NKANo Known Allergies (Unverified Allergy, Mild, 07/13/09) Past Petwoir-Gzesdl-Tbuxro Hx Patient Social History Tobacco Use?: No Use of E-Cig and/or Vaping dev: Yes E-Cig or Vaping type used: Nicotine Use of E-Cig and/or Vaping Mirza: Current Everyday User Substance use?: No Alcohol Use?: Yes Alcohol type: Hard Liquor Alcohol Frequency: Daily Pt feels they are or have been: No Immunizations Up To Date First/Initial COVID19 Vaccinat: x2 Tetanus Booster (TDap): Unknown Seasonal Allergies Seasonal Allergies: No Current Status Advance Directives: No Communicates: Verbally Primary Language: Luxembourgish Preferred Spoken Language: Luxembourgish Is interpretation needed?: No Sensory deficits: Vision impairment Implanted or Applied Medical D: None Family Medical History No Pertinent Family Hx Review of Systems Constitutional: no symptoms reported Respiratory: no symptoms reported Cardiovascular: no symptoms reported Gastrointestinal: abdominal pain, nausea, vomiting Physical Exam Physical Exam Vital Signs Vital Signs - First Documented 08/23/22 23:50 Temp 36.3 Pulse 106 Resp 22 B/P (MAP) 175/92 (119) Pulse Ox 97 O2 Delivery Room Air Capillary Refill : Less Than 3 Seconds Height, Weight, BMI Height: 5'7.00" Weight: 120lbs. 12.0oz. 54.539997ql; 21.40 BMI Method:Estimated General Appearance: No Apparent Distress, Thin HEENT: PERRL/EOMI, Pharynx Normal Neck: Normal Inspection, Supple Respiratory: Lungs Clear, Normal Breath Sounds, No Respiratory Distress Cardiovascular: No Murmur, Tachycardia Gastrointestinal: Soft, Abnormal Bowel Sounds (hypoactive), Tenderness Extremity: Normal Inspection, No Pedal Edema Neurologic/Psychiatric: Alert, No Motor/Sensory Deficits, Depressed Affect Skin: Normal Color, Warm/Dry Results Results/Procedures Labs Laboratory Tests 08/24/22 00:12 08/24/22 04:12 Patient resulted labs reviewed. Assessment/Plan Admission Diagnosis Acute pancreatitis Admission Status: Inpatient Order (span 2 midnights) Reason for Inpatient Admission: IV fluids IV pain meds Assessment and Plan Acute alcoholic pancreatitis Alcohol dependence LFTs elevated Lipase significantly elevated LFTs mildly elevated IV fluds Pain regimen NPO Labs improving, monitor If no improvement in pain, consider CT tomorrow [facility] protocol TeleICU consulted Critical Care Critically Ill Patient Diagnosis/Problems Diagnosis/Problems (1) Acute pancreatitis Status: Acute Qualifiers: Pancreatitis type: alcohol induced Acute pancreatitis complication: unspecified Qualified Codes: K85.20 - Alcohol induced acute pancreatitis without necrosis or infection (2) Alcohol dependence Status: Acute Qualifiers: Substance use status: unspecified alcohol-induced disorder Qualified Codes: F10.29 - Alcohol dependence with unspecified alcohol-induced disorder ARACELIS GHOSH MD August 24, 2022 21:01
[2022-08-25] MEDS: HYDROmorphone 2 MG/ML VIAL (DILAUDID) IV PRN ×9 (01:13→22:01)
[2022-08-25] MEDS: LACTATED RINGERS 1,000 ML IV SCH ×2 (02:47→19:00)
[2022-08-25] MEDS: LORazepam INJ 2 MG/ML (ATIVAN) VIAL IV PRN ×7 (03:25→18:26)
[2022-08-25 05:30] LABS: BASOPHILS % (AUTO) 0 % (0-10); EOSINOPHILS % (AUTO) 0 % (0-10); HEMATOCRIT 53 % (40-54); HEMOGLOBIN 18.5 g/dL (13.3-17.7); LYMPHOCYTES # (AUTO) 0.8 10^3/uL (1.0-4.0); LYMPHOCYTES % (AUTO) 6 % (12-44); MEAN CORPUSCULAR HEMOGLOBIN 31 pg (25-34); MEAN CORPUSCULAR HGB CONC 35 g/dL (32-36); MEAN CORPUSCULAR VOLUME 89 fL (80-99); MEAN PLATELET VOLUME 9.8 fL (9.0-12.2); MONOCYTES # (AUTO) 1.1 10^3/uL (0.0-1.0); MONOCYTES % (AUTO) 9 % (0-12); NEUTROPHILS # (AUTO) 10.3 10^3/uL (1.8-7.8); NEUTROPHILS % (AUTO) 84 % (42-75); PLATELET COUNT 148 10^3/uL (130-400); WHITE BLOOD COUNT 12.3 10^3/uL (4.3-11.0)
[2022-08-25 05:53] LABS: ALBUMIN 3.4 GM/DL (3.2-4.5); BILIRUBIN,TOTAL 0.8 MG/DL (0.1-1.0); CALCIUM 8.8 MG/DL (8.5-10.1); CREATININE SERUM 1.07 MG/DL (0.60-1.30); POTASSIUM 4.5 MMOL/L (3.6-5.0); TOTAL PROTEIN 5.8 GM/DL (6.4-8.2)
[2022-08-25 08:00] VITALS: BP 128/83
--- NOTE | 2022-08-25 08:28 | Tele-ICU Progress Note ---
Subjective Date Seen by a Provider: August 25, 2022 Time Seen by a Provider: 08:23 Subjective/Events-last exam (Tele-ICU Physician , Progress Note ) Service provided via interactive audio and video telecommunications E-CARE system to a patient admitted to ICU bed in [facility]. Patient is seen today due to persistent need of ICU care Available chart/ vitals / labs / Images reviewed Video assessment done using teleICU camera, rest of exam as per RN Discussed with RN 21 yo M admiteed yesterday for abd pain, Heavy EtOH use recently, diarrhea, in ED WBC 11.8, Hb 18.8 suggesting marked dehydration LFT's up ALT 189 , AST 128 EtOH level was 79 Started on IV PPI, IVF In ED lipase was 16,548, now dwon to 1336-no longer has as much abd pain, but did get IV Dilaudid 1 mg with good relief, IV Morphine did not help Sepsis Event Evaluation Height, Weight, BMI Height: 5'7.00" Weight: 120lbs. 12.0oz. 54.531434yh; 23.19 BMI Method:Estimated Exam Exam Patient acknowledged, consented, and participated in this virtual visit which was conducted using real time audio/video Vital Signs Date Time Temp Pulse Resp B/P (MAP) Pulse Ox O2 Delivery O2 Flow Rate FiO2 08/25/22 08:00 134 13 128/83 (98) 94 Room Air 08/25/22 07:36 36.1 08/25/22 07:00 145 08/25/22 03:09 36.9 08/25/22 00:04 143 08/24/22 23:32 36.5 08/24/22 21:00 144 19 94 Room Air 08/24/22 20:00 97 Room Air 08/24/22 19:59 36.7 142 15 123/82 (96) 94 Room Air 08/24/22 19:09 141 08/24/22 19:00 142 22 123/82 (96) 96 Room Air 08/24/22 16:00 35.9 138 18 165/96 (119) 97 Room Air 08/24/22 12:41 131 08/24/22 11:32 36.3 129 20 164/86 (112) 98 Room Air 08/24/22 09:00 103 24 169/97 (121) 94 Room Air I & O 08/25/22 06:59 Intake Total 5015.2 ml Output Total 1075 ml Balance 3940.2 ml Height & Weight Height: 5'7.00" Weight: 120lbs. 12.0oz. 54.140815nn; 23.19 BMI Method:Estimated General Appearance: No Apparent Distress, Thin HEENT: PERRL/EOMI, Pharynx Normal Neck: Normal Inspection, Supple Respiratory: Lungs Clear, Normal Breath Sounds, No Respiratory Distress Cardiovascular: No Murmur, Tachycardia Capillary Refill: Less Than 3 Seconds Gastrointestinal: soft, abnormal bowel sounds (Decreased); No distended; guarding (In the epigastrium), tenderness (Epigastrium and left upper quadrant) Extremity: Normal Inspection, No Pedal Edema, Other (pain mostly félix- umbilical) Neurologic/Psychiatric: Alert, Oriented x3, No Motor/Sensory Deficits, Depressed Affect, Other (having tremors, getting PRN Ativan, no hallucinations) Skin: Normal Color, Warm/Dry Results Lab Laboratory Tests 08/24/22 00:12 08/24/22 04:12 08/25/22 04:18 Assessment/Plan Assessment/Plan Pancreatitis, resovling, dehydration, will continue to hydrate watch for ETOH withdrawal, will continue on IV thaimine, folic acid, MVI will give a fluid bolus PRN IV Ativan 2mg Critical Care: Critically Ill Patient Time spent with patient (mins): CATE CHAPA MD August 25, 2022 08:28
[2022-08-25] MEDS: THIAMINE INJECTION 100 MG, FOLIC ACID INJECTION 1 MG, MAGNESIUM SULFATE 2 GM, VITAMIN M... IV SCH ×5 (08:36)
[2022-08-25] MEDS ORDERED: LACTATED RINGERS 1,000 ML IV SCH ×4 (10:00→19:00)
[2022-08-25] MEDS: PANTOPRAZOLE 40 MG (PROTONIX) VIAL IV SCH (10:10)
--- NOTE | 2022-08-25 11:27 | Tele-ICU Progress Note ---
Subjective Date Seen by a Provider: August 25, 2022 Time Seen by a Provider: 11:26 Subjective/Events-last exam UO still marginal, with Hb 18 probably very dry, will give one liter of LR Sepsis Event Evaluation Height, Weight, BMI Height: 5'7.00" Weight: 120lbs. 12.0oz. 54.788067pw; 23.19 BMI Method:Estimated Exam Exam Patient acknowledged, consented, and participated in this virtual visit which was conducted using real time audio/video Vital Signs Date Time Temp Pulse Resp B/P (MAP) Pulse Ox O2 Delivery O2 Flow Rate FiO2 08/25/22 08:00 134 13 128/83 (98) 94 Room Air 08/25/22 08:00 97 Room Air 08/25/22 07:36 36.1 08/25/22 07:00 145 08/25/22 03:09 36.9 08/25/22 00:04 143 08/24/22 23:32 36.5 08/24/22 21:00 144 19 94 Room Air 08/24/22 20:00 97 Room Air 08/24/22 19:59 36.7 142 15 123/82 (96) 94 Room Air 08/24/22 19:09 141 08/24/22 19:00 142 22 123/82 (96) 96 Room Air 08/24/22 16:00 35.9 138 18 165/96 (119) 97 Room Air 08/24/22 12:41 131 08/24/22 11:32 36.3 129 20 164/86 (112) 98 Room Air I & O 08/25/22 07:00 Intake Total 5015.2 ml Output Total 1075 ml Balance 3940.2 ml Height & Weight Height: 5'7.00" Weight: 120lbs. 12.0oz. 54.989450fu; 23.19 BMI Method:Estimated General Appearance: No Apparent Distress, Thin HEENT: PERRL/EOMI, Pharynx Normal Neck: Normal Inspection, Supple Respiratory: Lungs Clear, Normal Breath Sounds, No Respiratory Distress Cardiovascular: No Murmur, Tachycardia Capillary Refill: Less Than 3 Seconds Gastrointestinal: soft, abnormal bowel sounds (Decreased); No distended; guarding (In the epigastrium), tenderness (Epigastrium and left upper quadrant) Extremity: Normal Inspection, No Pedal Edema, Other (pain mostly félix- umbilical) Neurologic/Psychiatric: Alert, Oriented x3, No Motor/Sensory Deficits, Depressed Affect, Other (having tremors, getting PRN Ativan, no hallucinations) Skin: Normal Color, Warm/Dry Results Lab Laboratory Tests 08/24/22 00:12 08/24/22 04:12 08/25/22 04:18 Assessment/Plan Assessment/Plan Dehydration, give one liter of LR Critical Care: Critically Ill Patient Time spent with patient (mins): 10 CATE SMITH MD August 25, 2022 11:27
--- NOTE | 2022-08-25 11:47 | Diagnostic Imaging Report ---
EXAMINATION: CT abdomen without intravenous contrast. TECHNIQUE: Multiple contiguous axial images were obtained through the abdomen without the administration of intravenous contrast. All CT scans use one or more of the following dose optimizing techniques: automated exposure control, MA and/or KvP adjustment based on patient size and exam type or iterative reconstruction. HISTORY: Epigastric pain and pancreatitis COMPARISON: None available. FINDINGS: Limited views of the lower thorax show small bilateral pleural effusions and overlying atelectasis. Liver is severely steatotic. No suspicious liver lesion is seen. There is no biliary ductal dilation. Gallbladder is normal. There is severe extensive stranding about the pancreas in keeping with pancreatitis. There is large amount of fluid surrounding the pancreas and extending into the left upper quadrant and left paracolic gutter as well as the right paracolic gutter and into the root of the mesentery. The fluid is favored to be free, not loculated. Spleen is normal. Adrenal glands are normal. The kidneys are normal. There is no hydronephrosis. Visualized bowel is normal in caliber without obstruction or inflammation. No free air. No abdominal lymphadenopathy. Aorta is normal in caliber without aneurysm. There are no suspicious osseus lesions. IMPRESSION: 1. Severe extensive stranding and fluid surrounding the pancreas and extending into the left upper quadrant, both paracolic gutters in the root of mesentery in keeping with acute pancreatitis. The fluid appears to be free-flowing without loculated drainable collection. Dictated by: Dictated on workstation # [id number]
--- NOTE | 2022-08-25 17:38 | Progress Note - Hospitalist ---
Subjective HPI/CC On Admission Date Seen by Provider: August 25, 2022 Time Seen by Provider: 10:20 Asif Preciado is a 21 year old male who presented with abdominal pain. The pain is diffuse but more sharp in the epigastric region. He has also had nausea and vomiting. He denies fevers and chills. He drinks most days. He reports having about 10 drinks yesterday. He denies any history of alcohol withdrawal. He has no history of pancreatitis. Subjective/Events-last exam He is still having abdominal pain. He is not hungry. He denies chest pain and palpitations. Objective Exam Vital Signs Vital Signs Date Time Temp Pulse Resp B/P (MAP) Pulse Ox O2 Delivery O2 Flow Rate FiO2 08/25/22 16:00 160 24 Room Air 08/25/22 15:05 36.5 08/25/22 08:00 94 Capillary Refill : Less Than 3 Seconds General Appearance: No Apparent Distress, Thin Respiratory: Lungs Clear, No Respiratory Distress Cardiovascular: No Murmur, Tachycardia Gastrointestinal: Normal Bowel Sounds, Soft; No Distended, No Guarding; Tenderness Extremity: Normal Inspection, No Pedal Edema Neurologic/Psychiatric: Alert, No Motor/Sensory Deficits, Depressed Affect Skin: Normal Color, Warm/Dry Results/Procedures Lab Laboratory Tests 08/25/22 04:18 Patient resulted labs reviewed. Imaging: Reviewed Imaging Report Assessment/Plan Assessment and Plan Assess & Plan/Chief Complaint Acute alcoholic pancreatitis Alcohol dependence LFTs elevated Sinus tachycardia Lipase significantly elevated LFTs mildly elevated IV fluds, repeat bolus Add Metoprolol, not responding to significant fluid replacement Pain regimen NPO Labs improving, monitor CT consistent with severe pancreatitis, free fluid, no drainable fluid collection [facility] protocol TeleICU consulted Critical Care Critically Ill Patient Diagnosis/Problems Diagnosis/Problems (1) Acute pancreatitis Status: Acute Qualifiers: Pancreatitis type: alcohol induced Acute pancreatitis complication: unspecified Qualified Codes: K85.20 - Alcohol induced acute pancreatitis without necrosis or infection (2) Alcohol dependence Status: Acute Qualifiers: Substance use status: unspecified alcohol-induced disorder Qualified Codes: F10.29 - Alcohol dependence with unspecified alcohol-induced disorder (3) Elevated LFTs Status: Acute (4) Sinus tachycardia Status: Acute ARACELIS GHOSH MD August 25, 2022 17:38
[2022-08-25] MEDS ORDERED: meTOprolol 5 MG/5 ML (LOPRESSOR) VIAL ONE (17:55)
[2022-08-25 18:25] LABS: AMPHETAMINE SCREEN, URINE NEGATIVE (NEGATIVE); BARBITURATE SCREEN URINE NEGATIVE (NEGATIVE); BENZODIAZEPINES SCREEN URINE POSITIVE (NEGATIVE); CANNABINOID SCREEN, URINE NEGATIVE (NEGATIVE); COCAINE SCREEN URINE NEGATIVE (NEGATIVE); METHADONE STAT NEGATIVE (NEGATIVE); OPIATE SCREEN URINE POSITIVE (NEGATIVE); OXYCODONE STAT NEGATIVE (NEGATIVE); PROPOXYPHENE STAT NEGATIVE (NEGATIVE); TRICYCLIC ANTIDEPRESSANTS SCRE NEGATIVE (NEGATIVE)
[2022-08-25] MEDS: meTOprolol 5 MG/5 ML (LOPRESSOR) VIAL IV SCH ×2 (18:25→23:26)
[2022-08-25 19:57] VITALS: BP 112/81
[2022-08-25] MEDS: ENOXAPARIN 40 MG/0.4 ML (LOVENOX) SYR SC SCH (21:45)
[2022-08-26] VITALS (8 sets, daily range): BP systolic 120–147; BP diastolic 70–90
[2022-08-26] MEDS: HYDROmorphone 2 MG/ML VIAL (DILAUDID) IV PRN ×7 (00:50→22:33)
[2022-08-26] MEDS: LACTATED RINGERS 1,000 ML IV SCH ×5 (01:20→23:14)
[2022-08-26] MEDS: LORazepam INJ 2 MG/ML (ATIVAN) VIAL IV PRN ×5 (03:02→22:34)
[2022-08-26] MEDS: meTOprolol 5 MG/5 ML (LOPRESSOR) VIAL IV SCH ×4 (05:10→23:08)
[2022-08-26 06:36] LABS: BASOPHILS # (AUTO) 0.1 10^3/uL (0.0-0.1); MEAN CORPUSCULAR VOLUME 89 fL (80-99); MEAN PLATELET VOLUME 9.8 fL (9.0-12.2)
[2022-08-26 06:38] LABS: BASOPHILS % (AUTO) 0 % (0-10); EOSINOPHILS # (AUTO) 0.2 10^3/uL (0.0-0.3); EOSINOPHILS % (AUTO) 1 % (0-10); HEMATOCRIT 44 % (40-54); HEMOGLOBIN 15.1 g/dL (13.3-17.7); LYMPHOCYTES # (AUTO) 1.1 10^3/uL (1.0-4.0); LYMPHOCYTES % (AUTO) 8 % (12-44); MEAN CORPUSCULAR HEMOGLOBIN 31 pg (25-34); MEAN CORPUSCULAR HGB CONC 35 g/dL (32-36); MONOCYTES # (AUTO) 1.7 10^3/uL (0.0-1.0); MONOCYTES % (AUTO) 12 % (0-12); NEUTROPHILS % (AUTO) 78 % (42-75); PLATELET COUNT 114 10^3/uL (130-400); WHITE BLOOD COUNT 14.2 10^3/uL (4.3-11.0)
[2022-08-26 06:56] LABS: BILIRUBIN,TOTAL 1.4 MG/DL (0.1-1.0); CALCIUM 8.5 MG/DL (8.5-10.1); CREATININE SERUM 0.84 MG/DL (0.60-1.30); POTASSIUM 3.9 MMOL/L (3.6-5.0); TOTAL PROTEIN 5.6 GM/DL (6.4-8.2)
--- NOTE | 2022-08-26 08:21 | Tele-ICU Progress Note ---
Subjective Date Seen by a Provider: August 26, 2022 Time Seen by a Provider: 08:16 Subjective/Events-last exam (Tele-ICU Physician , Progress Note ) Service provided via interactive audio and video telecommunications E-CARE system to a patient admitted to ICU bed in [facility]. Patient is seen today due to persistent need of ICU care Available chart/ vitals / labs / Images reviewed Video assessment done using teleICU camera, rest of exam as per RN Discussed with RN Hb has dropped form 18 to 15 reflecting better hydration, LFT's are better, AST56,ALT 57, T Bili 1.4, UO is still dark, IVF LR @ 150 CT of abd yesterday showed acute pancreatitis Abd pain is 8/10, no nausea or vomiting Sepsis Event Evaluation Height, Weight, BMI Height: 5'7.00" Weight: 120lbs. 12.0oz. 54.807514pd; 24.18 BMI Method:Estimated Exam Exam Patient acknowledged, consented, and participated in this virtual visit which was conducted using real time audio/video Vital Signs Date Time Temp Pulse Resp B/P (MAP) Pulse Ox O2 Delivery O2 Flow Rate FiO2 08/26/22 07:56 37.2 149 20 136/80 (98) 96 Room Air 08/26/22 07:00 128 08/26/22 04:13 151 32 147/70 (95) Room Air 08/26/22 04:00 138 29 Room Air 08/26/22 00:30 37.7 130 16 141/90 (107) Room Air 08/25/22 20:00 96 Room Air 08/25/22 19:57 37.3 141 22 112/81 (91) 97 Room Air 08/25/22 16:00 160 24 Room Air 08/25/22 15:05 36.5 08/25/22 12:47 150 08/25/22 12:00 142 22 Room Air 08/25/22 12:00 36.7 I & O 08/26/22 07:00 Intake Total 4515.2 ml Output Total 600 ml Balance 3915.2 ml Height & Weight Height: 5'7.00" Weight: 120lbs. 12.0oz. 54.509296jk; 24.18 BMI Method:Estimated General Appearance: No Apparent Distress, Thin HEENT: PERRL/EOMI, Pharynx Normal Neck: Normal Inspection, Supple Respiratory: Lungs Clear, No Respiratory Distress Cardiovascular: No Murmur, Tachycardia Capillary Refill: Less Than 3 Seconds Gastrointestinal: soft, abnormal bowel sounds (Decreased); No distended; guarding (In the epigastrium), tenderness (Epigastrium and left upper quadrant) Extremity: Normal Inspection, No Pedal Edema Neurologic/Psychiatric: Alert, No Motor/Sensory Deficits, Depressed Affect, Other (no tremors, no diaphoresis, no haullcinations) Skin: Normal Color, Warm/Dry Results Lab Laboratory Tests 08/25/22 04:18 08/26/22 06:29 Assessment/Plan Assessment/Plan Improving acute pancreatitis, will continue hydration, thiamine, folic acid, MVI CXR shows new left sided pleural effusion, I will order left sided thoracic u/s and if good amount of tapable fluid would tap If UO says low will give LR 1000 mL bolus over one hour, SpO2 hi 80's to low 90's Critical Care: Critically Ill Patient Time spent with patient (mins): 25 CATE SMITH MD August 26, 2022 08:21
[2022-08-26] MEDS: PANTOPRAZOLE 40 MG (PROTONIX) VIAL IV SCH (08:39)
--- NOTE | 2022-08-26 09:06 | Progress Note - Hospitalist ---
Subjective HPI/CC On Admission Date Seen by Provider: August 26, 2022 Asif Preciado is a 21 year old male who presented with abdominal pain. The pain is diffuse but more sharp in the epigastric region. He has also had nausea and vomiting. He denies fevers and chills. He drinks most days. He reports having about 10 drinks yesterday. He denies any history of alcohol withdrawal. He has no history of pancreatitis. Subjective/Events-last exam Pt reports doing ok and abd pain improving. States he feels anxious. RN reported he seemed a little confused this morning following pain medication administration but oriented on my exam. Objective Exam Vital Signs Vital Signs Date Time Temp Pulse Resp B/P (MAP) Pulse Ox O2 Delivery O2 Flow Rate FiO2 08/26/22 08:00 92 Room Air 08/26/22 07:56 37.2 149 20 136/80 (98) Capillary Refill : Less Than 3 Seconds General Appearance: No Apparent Distress, Thin Respiratory: Lungs Clear, No Respiratory Distress Cardiovascular: No Murmur, Tachycardia Gastrointestinal: Normal Bowel Sounds, Non Tender, Distended (very mild); No Guarding, No Rebound Neurologic/Psychiatric: Alert, Oriented x3 Results/Procedures Lab Laboratory Tests 08/26/22 06:29 Patient resulted labs reviewed. Imaging: Reviewed Imaging Report Assessment/Plan Assessment and Plan Assess & Plan/Chief Complaint Acute alcoholic pancreatitis Alcohol dependence LFTs elevated Sinus tachycardia Lipase significantly elevated LFTs improving Continue IVF Continue Metoprolol, HR improved from 160s to 120s Pain regimen NPO Labs improving, monitor CT consistent with severe pancreatitis, free fluid, no drainable fluid collection [facility] protocol- will add phenobarbital for withdrawal symptoms TeleICU consulted Critical Care Critically Ill Patient FLORIDALMA MOSQUERA MD August 26, 2022 09:06
[2022-08-26] MEDS: THIAMINE INJECTION 100 MG, FOLIC ACID INJECTION 1 MG, MAGNESIUM SULFATE 2 GM, VITAMIN M... IV SCH ×5 (10:01)
--- NOTE | 2022-08-26 10:16 | Diagnostic Imaging Report ---
EXAM: CHEST 1 VIEW, AP/PA ONLY INDICATION: Pancreatitis. COMPARISON: Chest radiograph 04/04/2021. FINDINGS: Small to moderate left pleural effusion resulting in consolidation of the left lung base. No pneumothorax. Normal heart size and central pulmonary vascularity. The right lung is clear. IMPRESSION: [id number] left pleural effusion and consolidation left lung base. Dictated by: Dictated on workstation # [id number]
[2022-08-26] MEDS: PHENobarbital 64.8 MG (1 GRAIN) TAb PO SCH ×2 (10:55→20:24)
[2022-08-26] MEDS: LORazepam 1 MG (ATIVAN) TAB PO PRN (10:55)
--- NOTE | 2022-08-26 14:43 | Diagnostic Imaging Report ---
INDICATION: Dyspnea, follow-up acute pancreatitis. COMPARISON: None. DISCUSSION: Sonographic evaluation of the left hemithorax was performed. Small left pleural effusion is present. Quantity is likely not sufficient for a therapeutic thoracentesis. IMPRESSION: 1. Small left pleural effusion. Dictated by: Dictated on workstation # [id number]
[2022-08-26] MEDS: ENOXAPARIN 40 MG/0.4 ML (LOVENOX) SYR SC SCH (20:24)
[2022-08-27 00:02] VITALS: BP 116/77
[2022-08-27] MEDS: LORazepam INJ 2 MG/ML (ATIVAN) VIAL IV PRN ×2 (02:34→06:32)
[2022-08-27] MEDS: HYDROmorphone 2 MG/ML VIAL (DILAUDID) IV PRN ×2 (03:08→23:43)
[2022-08-27 03:50] VITALS: BP 127/70
[2022-08-27 04:00] VITALS: BP 120/69
[2022-08-27] MEDS ORDERED: ACETAMINOPHEN 500 MG TAB (TYLENOL) PO PRN (05:00)
[2022-08-27] MEDS: meTOprolol 5 MG/5 ML (LOPRESSOR) VIAL IV SCH ×5 (05:20→23:43)
[2022-08-27 05:36] LABS: BASOPHILS % (AUTO) 0 % (0-10); EOSINOPHILS % (AUTO) 0 % (0-10); MEAN CORPUSCULAR VOLUME 89 fL (80-99)
[2022-08-27 05:39] LABS: HEMATOCRIT 38 % (40-54); HEMOGLOBIN 13.1 g/dL (13.3-17.7); LYMPHOCYTES # (AUTO) 0.9 10^3/uL (1.0-4.0); LYMPHOCYTES % (AUTO) 8 % (12-44); MEAN CORPUSCULAR HEMOGLOBIN 30 pg (25-34); MEAN CORPUSCULAR HGB CONC 34 g/dL (32-36); MEAN PLATELET VOLUME 10.9 fL (9.0-12.2); MONOCYTES # (AUTO) 1.6 10^3/uL (0.0-1.0); MONOCYTES % (AUTO) 14 % (0-12); NEUTROPHILS # (AUTO) 8.5 10^3/uL (1.8-7.8); NEUTROPHILS % (AUTO) 76 % (42-75); PLATELET COUNT 122 10^3/uL (130-400); WHITE BLOOD COUNT 11.2 10^3/uL (4.3-11.0)
[2022-08-27 05:52] LABS: ALBUMIN 2.8 GM/DL (3.2-4.5); BILIRUBIN,TOTAL 1.5 MG/DL (0.1-1.0); CALCIUM 8.2 MG/DL (8.5-10.1); CREATININE SERUM 0.79 MG/DL (0.60-1.30); POTASSIUM 3.7 MMOL/L (3.6-5.0); TOTAL PROTEIN 5.3 GM/DL (6.4-8.2)
[2022-08-27 05:53] LABS: BILIRUBIN,URINE 1+ (NEGATIVE); CLARITY,URINE CLEAR; COLOR,URINE ORANGE; GLUCOSE, URINE (UA) NEGATIVE (NEGATIVE); KETONES,URINE 3+ (NEGATIVE); LEUKOCYTE ESTERASE ,URINE NEGATIVE (NEGATIVE); NITRITE,URINE NEGATIVE (NEGATIVE); PROTEIN,URINE 2+ (NEGATIVE)
--- NOTE | 2022-08-27 06:09 | Diagnostic Imaging Report ---
EXAMINATION: Chest 1 view HISTORY: Pancreatitis. Fever. COMPARISON: 08/26/2022. FINDINGS: Increasing small to moderate left and stable small right pleural effusions are seen. There is prominence of the central pulmonary vasculature. The heart size is normal. No pneumothorax. IMPRESSION: 1. Increasing left and stable right pleural effusions with suggestion of central pulmonary vascular congestion. Dictated by: Dictated on workstation # [id number]
[2022-08-27 06:14] LABS: BACTERIA,URINE NEGATIVE /HPF; WBC,URINE 0-2 /HPF
[2022-08-27 08:14] VITALS: BP 122/109
[2022-08-27] MEDS: PANTOPRAZOLE 40 MG (PROTONIX) VIAL IV SCH (08:18)
[2022-08-27] MEDS: LACTATED RINGERS 1,000 ML IV SCH ×3 (08:18→20:55)
[2022-08-27] MEDS: PHENobarbital 64.8 MG (1 GRAIN) TAb PO SCH ×2 (08:18→20:46)
[2022-08-27] MEDS ORDERED: NS IV 500 ML 500 ML IV PRN (09:15)
[2022-08-27] MEDS: POTASSIUM CL 10MEQ/50ML IVPB 50 ML IV SCH (09:29)
--- NOTE | 2022-08-27 10:13 | Consultation-Cardiology ---
HPI-Cardiology Cardiology Consultation: Date of Consultation 08/27/22 Time Seen by a Provider: 09:50 Date of Admission 08-24-22 Attending Physician [facility] Admitting Physician Admitting Physician: Dulce Siddiqi MD Attending Physician: Dulce Siddiqi MD Consulting Physician Farhat Vegas MD Provider requesting consult: Dr. Man HPI: Chief Complaint: Sinus tachycardia Mr. Fair is a 21 yr old male admitted to ICU 5 from the ED with abd pain/nausea/vomiting and tachycardia. He is being treated for acute pancreatitis. He drinks approx a pint of Vodka per day. He denies any street drug usage or Rx drugs; however he did test positive for benzo and opiates. We have been consulted d/t tachycardia. He denies any c/o CP or palpitations. He states he does have some SOB this morning. Review of Systems-Cardiology Review of Systems Constitutional: No chills, No fever; malaise Eyes: no symptoms reported Ears/Nose/Throat: No epistaxis, No recent hearing loss Respiratory: As described under HPI Cardiovascular: As described under HPI Gastrointestinal: As described under HPI Genitourinary: No dysuria, No hematuria Musculoskeletal: no symptoms reported Skin: No rash on exposed areas, No ulcerations on exposed areas Psychiatric/Neurological: anxiety, depression; No seizure, No focal weakness, No syncope Hematologic: No bleeding abnormalities GIH-[id number]-Zwluaw Hx Patient Social History 2nd Hand Smoke Exposure: No Have you traveled recently?: No Alcohol Use?: Yes Pt feels they are or have been: No Past Medical History PMH As described under Assessment. Family Medical History Family Medical History: No reported family h/o CAD or SCD. Allergies and Home Medications Allergies Coded Allergies: NKANo Known Allergies (Unverified Allergy, Mild, 07/13/09) Patient Home Medication List No Active Prescriptions or Reported Meds Physical Exam-Cardiology Physical Exam Vital Signs/I&O 08/27/22 08/27/22 08/27/22 08/28/22 22:00 23:00 23:46 00:00 Temp 38.0 Pulse 120 133 111 Resp 37 37 25 B/P (MAP) 119/54 (82) 146/79 (93) 138/52 (78) Pulse Ox 94 96 95 O2 Delivery Nasal Cannula Nasal Cannula Nasal Cannula O2 Flow Rate 4.00 4.00 4.00 08/28/22 08/28/22 08/28/22 08/28/22 00:20 01:00 01:00 02:00 Pulse 112 112 138 Resp 28 28 B/P (MAP) 141/65 (83) 119/82 (88) Pulse Ox 95 92 87 O2 Delivery Nasal Cannula Nasal Cannula Nasal Cannula O2 Flow Rate 4.00 4.00 4.00 08/28/22 08/28/22 08/28/22 08/28/22 03:00 04:00 04:00 04:00 Temp 37.1 Pulse 112 105 Resp 25 29 B/P (MAP) 132/74 (89) 132/60 (84) Pulse Ox 93 96 95 O2 Delivery Nasal Cannula Nasal Cannula Nasal Cannula O2 Flow Rate 4.00 4.00 6.00 08/28/22 08/28/22 08/28/22 08/28/22 05:00 06:00 06:10 07:29 Pulse 106 123 125 Resp 29 18 B/P (MAP) 138/89 (104) 146/85 (105) Pulse Ox 98 98 O2 Delivery Nasal Cannula Nasal Cannula Nasal Cannula O2 Flow Rate 4.00 4.00 6.00 08/28/22 08/28/22 08/28/22 08/28/22 07:48 08:13 08:18 08:26 Temp 36.9 36.9 Pulse 116 Pulse Ox 97 97 O2 Delivery Nasal Cannula Nasal Cannula Nasal Cannula O2 Flow Rate 6.00 6.00 4.00 08/28/22 00:00 Intake Total 1800 ml Output Total 3400 ml Balance -1600 ml Capillary Refill : Less Than 3 Seconds Constitutional: AAO x 3, well-developed, well-nourished HEENT: PERRL, hearing is well preserved Neck: No carotid bruit; carotid pulses are 2 + bilaterally Respiratory: No accessory muscle use, No respiratory distress; chest expansion is symmetric, chest is bilaterally symmetric, other (diminished bases bilat; poor inspiratory effort) Cardiovascular: tachycardia, S1 and S2 Gastrointestinal: No tender; soft; No guarding; audible bowel sounds Extremities: no lower extremity edema bilateral Neurologic/Psychiatric: grossly intact (moves all extremities) Skin: No rash on exposed areas, No ulcerations on exposed areas Data Review Labs Laboratory Tests 08/28/22 04:17: White Blood Count 11.0, Red Blood Count 4.21L, Hemoglobin 13.0L, Hematocrit 37L, Mean Corpuscular Volume 88, Mean Corpuscular Hemoglobin 31, Mean Corpuscular Hemoglobin Concent 35, Red Cell Distribution Width 11.9, Platelet Count 144, Mean Platelet Volume 10.0, Immature Granulocyte % (Auto) 1, Neutrophils (%) (Auto) 70, Lymphocytes (%) (Auto) 12, Monocytes (%) (Auto) 16H, Eosinophils (%) (Auto) 0, Basophils (%) (Auto) 0, Neutrophils # (Auto) 7.7, Lymphocytes # (Auto) 1.4, Monocytes # (Auto) 1.8H, Eosinophils # (Auto) 0.0, Basophils # (Auto) 0.0, Immature Granulocyte # (Auto) 0.1, Sodium Level 135, Potassium Level 3.1L, Chloride Level 101, Carbon Dioxide Level 24, Anion Gap 10, Blood Urea Nitrogen 7, Creatinine 0.80, Estimat Glomerular Filtration Rate 129, BUN/Creatinine Ratio 9, Glucose Level 86, Calcium Level 8.1L, Corrected Calcium 9.0, Magnesium Level 2.2, Total Bilirubin 1.2H, Aspartate Amino Transf (AST/SGOT) 43H, Alanine Aminotransferase (ALT/SGPT) 43, Alkaline Phosphatase 75, Total Protein 5.6L, Albumin 2.9L Microbiology 08/27/22 MRSA Screen - Final, Complete MRSA not isolated Radiology NAME: DONNA FAIR [facility] REC#: [id number] PT STATUS: ADM Suzanna : 2000 PHYSICIAN: OCTAVIA MATT MD ADMIT DATE: 08/24/22/ICU Signed Date of Exam:08/27/22 CHEST 1 VIEW, AP/PA ONLY EXAMINATION: Chest 1 view HISTORY: Pancreatitis. Fever. COMPARISON: 08/26/2022. FINDINGS: Increasing small to moderate left and stable small right pleural effusions are seen. There is prominence of the central pulmonary vasculature. The heart size is normal. No pneumothorax. IMPRESSION: 1. Increasing left and stable right pleural effusions with suggestion of central pulmonary vascular congestion. Dictated by: Dictated on workstation # [id number] Dict: 08/27/22 0607 Trans: 08/27/22 0611 ORESTES [id number] Interpreted by: YAMIL HOYT DO Electronically signed by: YAMIL HOYT DO 08/27/22 0611 ECG Impression ECG Initial ECG Rhythm: S.Tach A/P-Cardiology Assessment/Admission Diagnosis Sinus tachycardia - likely d/t alcohol/drug withdrawal Pleural effusions - seen on CXR today ETOH abuse - 1 pint of Vodka/day Denies any Rx/street drug usage - tested positive for benzo's and opiates this admission Acute pancreatitis - management per medical services Anxiety/Depression Discussion and Recomendations Sinus tachycardia - likely d/t ETOH/drug withdrawal - treat with BB Echocardiogram today to eval structure and function Developing bilat pl effusions with SOB - give IV Lasix today Acute pancreatitis - management per medical services Advise cessation of alcohol and drug usage Further recs will be based on his hospital course We would like to thank medical services for this consult I have spoken with Dr. Man this morning BILLY COYNE August 27, 2022 10:13
[2022-08-27] MEDS ORDERED: FUROSEMIDE 40 MG/4 ML INJ (LASIX) IVP NR (10:30)
--- NOTE | 2022-08-27 11:32 | Progress Note - Hospitalist ---
Subjective HPI/CC On Admission Date Seen by Provider: August 27, 2022 Asif Preciado is a 21 year old male who presented with abdominal pain. The pain is diffuse but more sharp in the epigastric region. He has also had nausea and vomiting. He denies fevers and chills. He drinks most days. He reports having about 10 drinks yesterday. He denies any history of alcohol withdrawal. He has no history of pancreatitis. Subjective/Events-last exam Pt reports feeling better. Actually asking about going home. Denies any abd pain at this time. [id number] plan to see cardiology due to tachycardia and that he was not medicallyl optimized for DC yet. No family at bedside. I offered to call and he declined this off and stated he would call his mom and keep her up to date. Focused Exam Lactate Level 08/27/22 05:16: Lactic Acid Level 0.80 Objective Exam Vital Signs Vital Signs Date Time Temp Pulse Resp B/P (MAP) Pulse Ox O2 Delivery O2 Flow Rate FiO2 08/27/22 11:14 36.4 112 30 135/85 (102) 96 Nasal Cannula 4.00 Capillary Refill : Less Than 3 Seconds General Appearance: No Apparent Distress, Thin Respiratory: Lungs Clear, No Respiratory Distress Cardiovascular: No Murmur, Tachycardia Gastrointestinal: Normal Bowel Sounds, Non Tender, Soft Neurologic/Psychiatric: Alert, Oriented x3 Results/Procedures Lab Laboratory Tests 08/27/22 04:50 Patient resulted labs reviewed. Imaging: Reviewed Imaging Report Assessment/Plan Assessment and Plan Assess & Plan/Chief Complaint Acute alcoholic pancreatitis Alcohol dependence LFTs elevated Sinus tachycardia Lipase improving LFTs continue to improve Continue Metoprolol, HR down to 110s today Cardiology consulted, appreciate recs Continue Pain regimen NPO DC rate of IVF Labs improving, monitor CT consistent with severe pancreatitis, free fluid, no drainable fluid collection Developed fever overnight, will repeat CT tomorrow if persists [facility] protocol- cont phenobarbital for withdrawal symptoms TeleICU consulted Critical Care Critically Ill Patient FLORIDALMA MOSQUERA MD August 27, 2022 11:32
--- NOTE | 2022-08-27 13:13 | Tele-ICU Progress Note ---
Subjective Date Seen by a Provider: August 27, 2022 Time Seen by a Provider: 13:11 Subjective/Events-last exam Tele-ICU Physician , progress note Service provided via interactive audio and video telecommunications E-CARE josephjesus chávez to a patient admitted to ICU bed in [facility]. Available chart/ vitals / labs / Images reviewed ROS as per chart and RN report Subj: Fever overnight however no obvious source of infection. Unable to wean O2 2/2 persistent hypoxia. Received Lasix 40mg IV. Lipase trending down A/P Neuro: A&OX3 CV: Tachycardic otherwise stable. Resp: On 4L NC. CXR with Manolo plueral effusions. Cont Lasix GI: acute pancreatitis improving. Lipase trending downward. Will start on CLD and advance as tolerated. Will d/c IVF once tolerating PO Endo: No active issues VTE Prophylaxis: orestes 1`30 bid Stress Ulcer Prophylaxis: PPI Plans in collaboration with bedside consultants and IM MDs. Discussed with RN to reach out if any questions or concerns A total of 25 minutes of critical care time was devoted to this patient today, required to treat and/or prevent further deterioration of critical care condition ( as above) Sepsis Event Evaluation Height, Weight, BMI Height: 5'7.00" Weight: 120lbs. 12.0oz. 54.893691tt; 23.82 BMI Method:Estimated Focused Exam Lactate Level 08/27/22 05:16: Lactic Acid Level 0.80 Exam Exam Patient acknowledged, consented, and participated in this virtual visit which was conducted using real time audio/video Vital Signs Date Time Temp Pulse Resp B/P (MAP) Pulse Ox O2 Delivery O2 Flow Rate FiO2 08/27/22 12:32 124 08/27/22 12:05 93 Nasal Cannula 4.00 08/27/22 11:58 36.8 125 34 137/80 (99) 93 Nasal Cannula 4.00 08/27/22 11:14 36.4 112 30 135/85 (102) 96 Nasal Cannula 4.00 08/27/22 10:13 36.9 134 38 113/78 (90) 96 Nasal Cannula 4.00 08/27/22 09:15 36.6 122 27 125/69 (87) 94 Nasal Cannula 4.00 08/27/22 08:14 36.3 133 34 122/109 (113) 92 Nasal Cannula 4.50 08/27/22 08:00 94 Nasal Cannula 4.00 08/27/22 07:36 36.3 Nasal Cannula 4.50 08/27/22 07:17 127 08/27/22 05:47 37.5 08/27/22 05:17 38.4 08/27/22 04:00 137 28 120/69 (86) 88 Room Air 08/27/22 03:50 38.4 146 32 127/70 (89) 95 High Flow N/C 4.00 08/27/22 01:00 147 08/27/22 00:02 138 31 116/77 (90) Room Air 08/26/22 23:41 37.7 137 28 143/86 (105) 95 Room Air 08/26/22 20:03 95 Room Air 08/26/22 20:00 129 37 131/72 (96) 95 Nasal Cannula 2.00 08/26/22 19:34 37.7 141 29 120/77 (91) 100 08/26/22 19:00 146 08/26/22 18:23 91 Nasal Cannula 2.00 08/26/22 15:54 37.7 135 18 129/84 (99) 95 Nasal Cannula 2.00 I & O 08/27/22 07:00 Intake Total 60 ml Output Total 700 ml Balance -640 ml Height & Weight Height: 5'7.00" Weight: 120lbs. 12.0oz. 54.067120qj; 23.82 BMI Method:Estimated General Appearance: No Apparent Distress, Thin HEENT: PERRL/EOMI, Pharynx Normal Neck: Normal Inspection, Supple Respiratory: No Respiratory Distress Cardiovascular: Tachycardia Capillary Refill: Less Than 3 Seconds Gastrointestinal: No distended Extremity: Normal Inspection Neurologic/Psychiatric: Alert, Oriented x3 Skin: Normal Color, Warm/Dry Results Lab Laboratory Tests 08/26/22 06:29 08/27/22 04:50 Assessment/Plan Assessment/Plan . GIBSON DAWKINS MD August 27, 2022 13:13
--- NOTE | 2022-08-27 19:26 | Consultation-Cardiology ---
HPI-Cardiology Cardiology Consultation: Date of Consultation 08/27/22 Time Seen by a Provider: 16:30 Date of Admission Attending Physician [facility] Admitting Physician Admitting Physician: Dulce Siddiqi MD Attending Physician: Dulce Siddiqi MD Consulting Physician SHERRI GONGORA MD, MA, FACP, FACC, [facility], CCDS Physician requesting consult: Dr Siddiqi HPI: Chief Complaint: Sinus tachycardia Mr. Preciado is a 21 yr old male admitted to ICU 5 from the ED with abd pain/nausea/vomiting and tachycardia. He is being treated for acute pancreatitis. He drinks approx a pint of Vodka per day. He denies any street drug usage or Rx drugs; however he did test positive for benzo and opiates. We have been consulted d/t tachycardia. He denies any c/o CP or palpitations. He states he does have some SOB this morning. Review of Systems-Cardiology Review of Systems Constitutional: No chills, No fever; malaise Eyes: no symptoms reported Ears/Nose/Throat: No epistaxis, No recent hearing loss Respiratory: As described under HPI Cardiovascular: As described under HPI Gastrointestinal: As described under HPI Genitourinary: No dysuria, No hematuria Musculoskeletal: no symptoms reported Skin: No rash on exposed areas, No ulcerations on exposed areas Psychiatric/Neurological: anxiety, depression; No seizure, No focal weakness, No syncope Hematologic: No bleeding abnormalities [id number] Hx Patient Social History 2nd Hand Smoke Exposure: No Have you traveled recently?: No Alcohol Use?: Yes Pt feels they are or have been: No Past Medical History PMH As described under Assessment. Family Medical History Family Medical History: No reported family h/o CAD or SCD. Allergies and Home Medications Allergies Coded Allergies: NKANo Known Allergies (Unverified Allergy, Mild, 07/13/09) Patient Home Medication List Home Medication List Reviewed: Yes No Active Prescriptions or Reported Meds Physical Exam-Cardiology Physical Exam Vital Signs/I&O 08/27/22 08/27/22 08/27/22 08/27/22 07:36 08:00 08:14 09:15 Temp 36.3 36.3 36.6 Pulse 133 122 Resp 34 27 B/P (MAP) 122/109 (113) 125/69 (87) Pulse Ox 94 92 94 O2 Delivery Nasal Cannula Nasal Cannula Nasal Cannula Nasal Cannula O2 Flow Rate 4.50 4.00 4.50 4.00 08/27/22 08/27/22 08/27/22 08/27/22 10:13 11:14 11:58 12:05 Temp 36.9 36.4 36.8 Pulse 134 112 125 Resp 38 30 34 B/P (MAP) 113/78 (90) 135/85 (102) 137/80 (99) Pulse Ox 96 96 93 93 O2 Delivery Nasal Cannula Nasal Cannula Nasal Cannula Nasal Cannula O2 Flow Rate 4.00 4.00 4.00 4.00 08/27/22 08/27/22 08/27/22 08/27/22 12:32 13:17 14:12 14:58 Temp 36.5 36.5 36.5 Pulse 124 120 131 125 Resp 32 30 19 B/P (MAP) 132/68 (89) 153/91 (111) 159/78 (105) Pulse Ox 99 96 98 O2 Delivery Nasal Cannula Nasal Cannula Nasal Cannula O2 Flow Rate 4.00 4.00 4.00 08/27/22 08/27/22 08/27/22 08/27/22 15:27 15:58 16:58 17:58 Temp 37.1 37.0 36.5 Pulse 125 116 130 Resp 20 20 20 B/P (MAP) 143/83 (103) 137/78 (97) 143/96 (112) Pulse Ox 94 98 96 96 O2 Delivery Nasal Cannula Nasal Cannula Nasal Cannula Nasal Cannula O2 Flow Rate 4.00 4.00 4.00 4.00 08/27/22 18:51 Temp 37.0 Pulse 123 Resp 20 B/P (MAP) 120/55 (76) Pulse Ox 96 O2 Delivery Nasal Cannula O2 Flow Rate 4.00 08/27/22 00:00 Intake Total 40 ml Output Total 150 ml Balance -110 ml Capillary Refill : NONE Constitutional: No AAO x 3; well-developed, well-nourished HEENT: PERRL, hearing is well preserved Neck: No carotid bruit; carotid pulses are 2 + bilaterally Respiratory: No accessory muscle use, No respiratory distress; chest expansion is symmetric, chest is bilaterally symmetric, other (diminished bases bilat; poor inspiratory effort) Cardiovascular: tachycardia, S1 and S2 Gastrointestinal: No tender; soft; No guarding; audible bowel sounds Extremities: no lower extremity edema bilateral Neurologic/Psychiatric: other (moves all limbs) Skin: No rash on exposed areas, No ulcerations on exposed areas Data Review Labs Laboratory Tests 08/26/22 23:15: Glucometer 77 08/27/22 04:50: White Blood Count 11.2H, Red Blood Count 4.32, Hemoglobin 13.1L, Hematocrit 38L, Mean Corpuscular Volume 89, Mean Corpuscular Hemoglobin 30, Mean Corpuscular Hemoglobin Concent 34, Red Cell Distribution Width 11.7, Platelet Count 122L, Mean Platelet Volume 10.9, Immature Granulocyte % (Auto) 2, Neutrophils (%) (Auto) 76H, Lymphocytes (%) (Auto) 8L, Monocytes (%) (Auto) 14H, Eosinophils (%) (Auto) 0, Basophils (%) (Auto) 0, Neutrophils # (Auto) 8.5H, Lymphocytes # (Auto) 0.9L, Monocytes # (Auto) 1.6H, Eosinophils # (Auto) 0.0, Basophils # (Auto) 0.0, Immature Granulocyte # (Auto) 0.2H, Percent Immature Platelet Fraction 6.5, Sodium Level 132L, Potassium Level 3.7, Chloride Level 101, Carbon Dioxide Level 20L, Anion Gap 11, Blood Urea Nitrogen 8, Creatinine 0.79, Estimat Glomerular Filtration Rate 130, BUN/Creatinine Ratio 10, Glucose Level 73, Calcium Level 8.2L, Corrected Calcium 9.2, Total Bilirubin 1.5H, Aspartate Amino Transf (AST/SGOT) 48H, Alanine Aminotransferase (ALT/SGPT) 45, Alkaline Phosphatase 94, Total Protein 5.3L, Albumin 2.8L 08/27/22 05:16: Lactic Acid Level 0.80 08/27/22 05:30: Urine Color ORANGE, Urine Clarity CLEAR, Urine pH 7.0, Urine Specific [place] 1.020, Urine Protein 2+H, Urine Glucose (UA) NEGATIVE, Urine Ketones 3+H, Urine Nitrite NEGATIVE, Urine Bilirubin 1+H, Urine Urobilinogen 4.0, Urine Leukocyte Esterase NEGATIVE, Urine RBC (Auto) 1+H, Urine RBC 2-5H, Urine WBC 0-2, Urine Crystals NONE, Urine Bacteria NEGATIVE, Urine Casts NONE, Urine Mucus SMALLH, Urine Culture Indicated NO Laboratory Tests 08/26/22 06:29 08/27/22 04:50 A/P-Cardiology Assessment/Admission Diagnosis Sinus tachycardia - likely d/t alcohol/drug withdrawal Pleural effusions - seen on CXR today ETOH abuse - 1 pint of Vodka/day Denies any Rx/street drug usage - tested positive for benzo's and opiates this admission Acute pancreatitis - management per medical services Anxiety/Depression Discussion and Recomendations Sinus tachycardia - likely d/t ETOH/drug withdrawal - treat with BB Echocardiogram today to eval structure and function Developing bilat pl effusions with SOB - give IV Lasix today Acute pancreatitis - management per medical services Advise cessation of alcohol and drug usage Further recs will be based on his hospital course We would like to thank medical services for this consult SHERRI GONGORA MD FACP FACC CCDS August 27, 2022 19:26
[2022-08-27] MEDS: ENOXAPARIN 40 MG/0.4 ML (LOVENOX) SYR SC SCH (20:46)
[2022-08-28] MEDS: ONDANSETRON 4 MG/2 ML (SDV) Z0FRAN IV PRN ×2 (02:05→06:43)
[2022-08-28] MEDS: LORazepam INJ 2 MG/ML (ATIVAN) VIAL IV PRN ×2 (04:27→23:02)
[2022-08-28] MEDS: meTOprolol 5 MG/5 ML (LOPRESSOR) VIAL IV SCH ×5 (04:27→20:01)
[2022-08-28 04:31] LABS: BASOPHILS % (AUTO) 0 % (0-10); EOSINOPHILS % (AUTO) 0 % (0-10); HEMATOCRIT 37 % (40-54); LYMPHOCYTES # (AUTO) 1.4 10^3/uL (1.0-4.0); LYMPHOCYTES % (AUTO) 12 % (12-44); MEAN CORPUSCULAR HEMOGLOBIN 31 pg (25-34); MEAN CORPUSCULAR HGB CONC 35 g/dL (32-36); MEAN CORPUSCULAR VOLUME 88 fL (80-99); MONOCYTES # (AUTO) 1.8 10^3/uL (0.0-1.0); MONOCYTES % (AUTO) 16 % (0-12); NEUTROPHILS # (AUTO) 7.7 10^3/uL (1.8-7.8); NEUTROPHILS % (AUTO) 70 % (42-75); PLATELET COUNT 144 10^3/uL (130-400)
[2022-08-28 05:00] LABS: ALBUMIN 2.9 GM/DL (3.2-4.5); BILIRUBIN,TOTAL 1.2 MG/DL (0.1-1.0); CALCIUM 8.1 MG/DL (8.5-10.1); CREATININE SERUM 0.8 MG/DL (0.60-1.30); MAGNESIUM 2.2 MG/DL (1.6-2.4); POTASSIUM 3.1 MMOL/L (3.6-5.0); TOTAL PROTEIN 5.6 GM/DL (6.4-8.2)
[2022-08-28] MEDS ORDERED: POTASSIUM CL 10MEQ/50ML IVPB 50 ML IV SCH (05:15)
[2022-08-28] MEDS ORDERED: POTASSIUM CL 10MEQ/50ML IVPB 400 ML IV ONE (05:42)
[2022-08-28] MEDS: MAGNESIUM 1 GM/100 ML IVPB 100 ML IV SCH (05:47)
[2022-08-28] MEDS: POTASSIUM CL 10MEQ/50ML IVPB 50 ML IV SCH ×7 (05:47→12:17)
[2022-08-28] MEDS: KCL 20 MEQ TAB (K-DUR) PO SCH (05:48)
[2022-08-28] MEDS: PHENobarbital 64.8 MG (1 GRAIN) TAb PO SCH ×2 (07:52→20:01)
[2022-08-28] MEDS: PANTOPRAZOLE 40 MG (PROTONIX) VIAL IV SCH (07:53)
[2022-08-28] MEDS ORDERED: FUROSEMIDE 40 MG/4 ML INJ (LASIX) IVP NR (08:00)
[2022-08-28] MEDS: HYDROcodone/APAP 5 MG/325 MG (LORTAB) TAB PO PRN ×3 (08:01→20:01)
[2022-08-28 08:18] VITALS: BP 146/85
--- NOTE | 2022-08-28 09:12 | Tele-ICU Progress Note ---
Subjective Date Seen by a Provider: August 28, 2022 Time Seen by a Provider: 09:11 Subjective/Events-last exam (Tele-ICU Physician , Progress Note ) Service provided via interactive audio and video telecommunications E-CARE system to a patient admitted to ICU bed in [facility]. Patient is seen today due to persistent need of ICU care Available chart/ vitals / labs / Images reviewed Video assessment done using teleICU camera, rest of exam as per RN Discussed with RN Events overnight : Afebrile hemodynamically stable Respiratory - 4 L I/O = Drips: LR 75 Pressors- no A/P acute pancreatitis improving. - Lipase trending downward. Will start on CLD and advance as tolerated. Hypoxia - 4-6 L NC . + wheezing - IS, follow effusion Plural effusion - repeat cxr Sinus tachycardia - likely d/t alcohol/drug withdrawal - cards follow ECHO RF 55% ETON abuse - phenobarb schedule - banana bag Lines : per , (Central Line Necessity Reviewed) Andrew: morteza OG: Nutrition: po Analgesia: Anxiety/ delirium VTE Prophylaxis: orestes Stress Ulcer Prophylaxis: na Plans in collaboration with bedside consultants and IM MDs. Discussed with RN to reach out if any questions or concerns Case and care daily discussed on multidisciplinary rounds ( RN, PharmD, Spr[employer] , Respiratory Therapy, grizzly worker ) A total of 20 minutes of critical care time was devoted to this patient today, required to treat and/or prevent further deterioration of critical care conditio n ( as above ) . Sepsis Event Evaluation Height, Weight, BMI Height: 5'7.00" Weight: 120lbs. 12.0oz. 54.170345xo; 22.98 BMI Method:Estimated Focused Exam Lactate Level 08/27/22 05:16: Lactic Acid Level 0.80 Exam Exam Patient acknowledged, consented, and participated in this virtual visit which was conducted using real time audio/video Vital Signs Date Time Temp Pulse Resp B/P (MAP) Pulse Ox O2 Delivery O2 Flow Rate FiO2 08/28/22 08:26 Nasal Cannula 4.00 08/28/22 08:18 36.9 116 97 08/28/22 08:13 97 Nasal Cannula 6.00 08/28/22 07:48 36.9 Nasal Cannula 6.00 08/28/22 07:29 125 08/28/22 06:10 Nasal Cannula 6.00 08/28/22 06:00 123 18 146/85 (105) 98 Nasal Cannula 4.00 08/28/22 05:00 106 29 138/89 (104) 98 Nasal Cannula 4.00 08/28/22 04:00 37.1 08/28/22 04:00 95 Nasal Cannula 6.00 08/28/22 04:00 105 29 132/60 (84) 96 Nasal Cannula 4.00 08/28/22 03:00 112 25 132/74 (89) 93 Nasal Cannula 4.00 08/28/22 02:00 138 28 119/82 (88) 87 Nasal Cannula 4.00 08/28/22 01:00 112 28 141/65 (83) 92 Nasal Cannula 4.00 08/28/22 01:00 112 08/28/22 00:20 95 Nasal Cannula 4.00 08/28/22 00:00 111 25 138/52 (78) 95 Nasal Cannula 4.00 08/27/22 23:46 38.0 08/27/22 23:00 133 37 146/79 (93) 96 Nasal Cannula 4.00 08/27/22 22:00 120 37 119/54 (82) 94 Nasal Cannula 4.00 08/27/22 21:00 133 25 114/88 (96) 90 Nasal Cannula 4.00 08/27/22 20:00 94 Nasal Cannula 4.00 08/27/22 20:00 37.6 121 28 120/57 (78) 96 Nasal Cannula 4.00 08/27/22 19:00 123 08/27/22 19:00 123 30 113/52 (74) 94 Nasal Cannula 4.00 08/27/22 18:51 37.0 123 20 120/55 (76) 96 Nasal Cannula 4.00 08/27/22 17:58 36.5 130 20 143/96 (112) 96 Nasal Cannula 4.00 08/27/22 16:58 37.0 116 20 137/78 (97) 96 Nasal Cannula 4.00 08/27/22 15:58 37.1 125 20 143/83 (103) 98 Nasal Cannula 4.00 08/27/22 15:27 94 Nasal Cannula 4.00 08/27/22 14:58 36.5 125 19 159/78 (105) 98 Nasal Cannula 4.00 08/27/22 14:12 36.5 131 30 153/91 (111) 96 Nasal Cannula 4.00 08/27/22 13:17 36.5 120 32 132/68 (89) 99 Nasal Cannula 4.00 08/27/22 12:32 124 08/27/22 12:05 93 Nasal Cannula 4.00 08/27/22 11:58 36.8 125 34 137/80 (99) 93 Nasal Cannula 4.00 08/27/22 11:14 36.4 112 30 135/85 (102) 96 Nasal Cannula 4.00 08/27/22 10:13 36.9 134 38 113/78 (90) 96 Nasal Cannula 4.00 08/27/22 09:15 36.6 122 27 125/69 (87) 94 Nasal Cannula 4.00 I & O 08/28/22 07:00 Intake Total 3550 ml Output Total 4925 ml Balance -1375 ml Height & Weight Height: 5'7.00" Weight: 120lbs. 12.0oz. 54.825149xl; 22.98 BMI Method:Estimated General Appearance: No Apparent Distress, Thin HEENT: PERRL/EOMI, Pharynx Normal Neck: Normal Inspection, Supple Respiratory: No Respiratory Distress Cardiovascular: Tachycardia Capillary Refill: Less Than 3 Seconds Gastrointestinal: No distended Extremity: Normal Inspection Neurologic/Psychiatric: Alert, Oriented x3 Skin: Normal Color, Warm/Dry Results Lab Laboratory Tests 08/27/22 04:50 08/28/22 04:17 Assessment/Plan Assessment/Plan 1 PAULA KAN MD August 28, 2022 09:12
[2022-08-28] MEDS: LACTATED RINGERS 1,000 ML IV SCH ×2 (09:23→22:57)
--- NOTE | 2022-08-28 09:41 | Progress Note - Cardiology ---
Cardiology SOAP Progress Note Subjective: Lying in bed Denies any c/o CP, SOB or palpitations Per nursing staff he attempted to leave AMA this morning, but agreed to stay Objective: I&O/Vital Signs 08/28/22 08/28/22 08/28/22 08/28/22 21:58 22:03 23:00 23:52 Temp 36.5 Pulse 105 124 Resp 24 36 B/P (MAP) 143/90 (107) 158/88 (111) Pulse Ox 96 96 O2 Delivery Nasal Cannula Nasal Cannula Nasal Cannula O2 Flow Rate 1.50 2.00 2.00 08/29/22 08/29/22 08/29/22 08/29/22 00:00 00:00 01:00 01:00 Pulse 108 111 110 Resp B/P (MAP) 121/61 (81) 136/81 (99) Pulse Ox 95 95 91 O2 Delivery Nasal Cannula Nasal Cannula Nasal Cannula O2 Flow Rate 2.00 2.00 2.00 08/29/22 08/29/22 08/29/22 08/29/22 02:00 02:13 03:00 04:00 Pulse 128 128 Resp 17 B/P (MAP) 140/81 (100) 136/72 (93) Pulse Ox 94 95 96 O2 Delivery Nasal Cannula Nasal Cannula Nasal Cannula Nasal Cannula O2 Flow Rate 2.00 1.50 2.00 2.00 08/29/22 08/29/22 08/29/22 08/29/22 04:00 04:27 05:00 06:00 Temp 37.0 Pulse 112 111 118 Resp B/P (MAP) 138/72 (94) 130/67 (88) 135/96 (109) Pulse Ox 94 94 92 O2 Delivery Nasal Cannula Nasal Cannula Nasal Cannula O2 Flow Rate 2.00 2.00 2.00 08/29/22 08/29/22 08/29/22 08/29/22 07:34 08:10 08:23 09:00 Temp 36.8 37.3 36.2 Pulse 117 109 106 Resp 29 30 B/P (MAP) 138/66 (90) 129/66 (87) Pulse Ox 97 94 94 O2 Delivery Nasal Cannula O2 Flow Rate 1.00 1.00 1.00 08/29/22 00:00 Intake Total 1925 ml Output Total 2475 ml Balance -550 ml Weight (Pounds): 120 Weight (Ounces): 12.0 Weight (Calculated Kilograms): 54.640927 Constitutional: No AAO x 3; well-developed, well-nourished Respiratory: No accessory muscle use, No respiratory distress; chest expansion is symmetric, chest is bilaterally symmetric, other (diminished bases bilat; poor inspiratory effort) Cardiovascular: tachycardia, S1 and S2 Gastrointestional: No tender; soft; No guarding; audible bowel sounds Extremities: no lower extremity edema bilateral Neurologic/Psychiatric: other (moves all limbs) Skin: No rash on exposed areas, No ulcerations on exposed areas Results/Procedures: Labs Laboratory Tests 08/29/22 03:21: White Blood Count 8.5, Red Blood Count 4.25L, Hemoglobin 12.9L, Hematocrit 37L, Mean Corpuscular Volume 88, Mean Corpuscular Hemoglobin 30, Mean Corpuscular Hemoglobin Concent 35, Red Cell Distribution Width 12.0, Platelet Count 175, Mean Platelet Volume 10.5, Immature Granulocyte % (Auto) 1, Neutrophils (%) (Auto) 70, Lymphocytes (%) (Auto) 13, Monocytes (%) (Auto) 16H, Eosinophils (%) (Auto) 1, Basophils (%) (Auto) 1, Neutrophils # (Auto) 5.9, Lymphocytes # (Auto) 1.1, Monocytes # (Auto) 1.3H, Eosinophils # (Auto) 0.0, Basophils # (Auto) 0.1, Immature Granulocyte # (Auto) 0.1, Sodium Level 134L, Potassium Level 3.0L, Chloride Level 100, Carbon Dioxide Level 23, Anion Gap 11, Blood Urea Nitrogen 5L, Creatinine 0.81, Estimat Glomerular Filtration Rate 129, BUN/Creatinine Ratio 6, Glucose Level 86, Calcium Level 8.3L, Corrected Calcium 9.0, Phosphorus Level 2.8, Magnesium Level 2.2, Total Bilirubin 1.0, Aspartate Amino Transf (AST/SGOT) 52H, Alanine Aminotransferase (ALT/SGPT) 53, Alkaline Phosphatase 81, Total Protein 6.1L, Albumin 3.1L Microbiology 08/27/22 MRSA Screen - Final, Complete MRSA not isolated 08/27/22 Blood Culture - Preliminary, Resulted No growth A/P: Assessment: Sinus tachycardia - likely d/t alcohol/drug withdrawal - Echocardiogram of 08-27-22 showed LVEF 55-60%. Mod L pl effusion. Pleural effusions ETOH abuse - 1 pint of Vodka/day Denies any Rx/street drug usage - tested positive for benzo's and opiates this admission Acute pancreatitis - management per medical services Anxiety/Depression Plan: Sinus tachycardia - likely d/t ETOH/drug withdrawal - treat with BB Developing bilat pl effusions with SOB - Continue IV Lasix today Acute pancreatitis - management per medical services Advise cessation of alcohol and drug usage BILLY COYNE [facility] August 28, 2022 09:41
[2022-08-28] MEDS: RT-LEVALBUTEROL (XOPENEX) 1.25 MG/3 ML NEB NON-FORMULARY INH SCH ×3 (09:58→21:57)
[2022-08-28] MEDS: LORazepam 1 MG (ATIVAN) TAB PO PRN (10:10)
--- NOTE | 2022-08-28 11:52 | Progress Note - Hospitalist ---
Subjective HPI/CC On Admission Date Seen by Provider: August 28, 2022 Asif Preciado is a 21 year old male who presented with abdominal pain. The pain is diffuse but more sharp in the epigastric region. He has also had nausea and vomiting. He denies fevers and chills. He drinks most days. He reports having about 10 drinks yesterday. He denies any history of alcohol withdrawal. He has no history of pancreatitis. Subjective/Events-last exam Pt reports doing better today. Attempted to leave AMA this morning but now agreeable. Discussed risks of DC before optimization and indicatios for continued hospitalization and he is agreeable to stay. Reports pain is better. Toelrating clears. RN reports up to 6lpm on NC though. Focused Exam Lactate Level 08/27/22 05:16: Lactic Acid Level 0.80 Objective Exam Vital Signs Vital Signs Date Time Temp Pulse Resp B/P (MAP) Pulse Ox O2 Delivery O2 Flow Rate FiO2 08/28/22 10:59 36.6 118 27 135/71 (92) 95 Nasal Cannula 2.00 Capillary Refill : Less Than 3 Seconds General Appearance: No Apparent Distress, Anxious, Thin Respiratory: Decreased Breath Sounds; No Rhonci, No Wheezing Cardiovascular: Tachycardia Gastrointestinal: Normal Bowel Sounds, Non Tender, Soft; No Guarding, No Rebound Neurologic/Psychiatric: Alert, Oriented x3 Results/Procedures Lab Laboratory Tests 08/28/22 04:17 Patient resulted labs reviewed. Imaging: Reviewed Imaging Report Assessment/Plan Assessment and Plan Assess & Plan/Chief Complaint Acute alcoholic pancreatitis Alcohol dependence LFTs elevated Sinus tachycardia Continue Metoprolol, HR in 110s today Cardiology consulted, appreciate recs Continue Pain regimen Tolerating CLD Trial lasix due to increasing oxygen requirement Labs improving, monitor CT consistent with severe pancreatitis, free fluid, no drainable fluid collection DNo further fever so will defer repeat CT for now [facility] protocol- cont phenobarbital for withdrawal symptoms TeleICU consulted Critical Care Critically Ill Patient FLORIDALMA MOSQUERA MD August 28, 2022 11:52
[2022-08-28] MEDS: THIAMINE 100 MG (VITAMIN B-1) TAB PO SCH (12:13)
[2022-08-28] MEDS: FOLIC ACID 1 MG TAB PO SCH (12:13)
[2022-08-28] MEDS ORDERED: RT-LEVALBUTEROL (XOPENEX) 1.25 MG/3 ML NEB NON-FORMULARY INH PRN (13:00)
[2022-08-28] MEDS: ONDANSETRON 4 MG (ZOFRAN) ORAL DISSOLVE TAB SL PRN (15:51)
--- NOTE | 2022-08-28 17:45 | Progress Note - Cardiology ---
Cardiology SOAP Progress Note Subjective: Abdominal and mid back pain No cp or palp or syncope No n/v/d No focal weakness Gen malaise Objective: I&O/Vital Signs 08/28/22 08/28/22 08/28/22 08/28/22 06:00 06:10 07:00 07:29 Pulse 123 114 125 Resp 18 35 B/P (MAP) 146/85 (105) 149/75 (99) Pulse Ox 98 96 O2 Delivery Nasal Cannula Nasal Cannula Nasal Cannula O2 Flow Rate 4.00 6.00 6.00 08/28/22 08/28/22 08/28/22 08/28/22 07:48 08:00 08:00 08:13 Temp 36.9 Pulse 111 Resp 9 B/P (MAP) 152/104 (120) Pulse Ox 96 100 97 O2 Delivery Nasal Cannula Nasal Cannula Nasal Cannula Nasal Cannula O2 Flow Rate 6.00 6.00 6.00 6.00 08/28/22 08/28/22 08/28/22 08/28/22 08:18 08:26 09:00 09:58 Temp 36.9 Pulse 116 120 Resp 22 B/P (MAP) 130/69 (89) Pulse Ox 97 93 97 O2 Delivery Nasal Cannula Nasal Cannula Nasal Cannula O2 Flow Rate 4.00 6.00 4.00 08/28/22 08/28/22 08/28/22 08/28/22 09:58 10:00 10:04 10:17 Pulse 123 126 Resp 27 31 B/P (MAP) 147/84 (105) 147/84 (105) Pulse Ox 95 95 92 O2 Delivery Nasal Cannula Nasal Cannula Nasal Cannula Nasal Cannula O2 Flow Rate 2.00 2.00 2.00 2.00 08/28/22 08/28/22 08/28/22 08/28/22 10:59 11:58 12:18 12:59 Temp 36.6 36.3 36.5 Pulse 118 110 Resp 27 14 B/P (MAP) 135/71 (92) 134/78 (96) Pulse Ox 95 94 97 O2 Delivery Nasal Cannula Nasal Cannula Nasal Cannula Nasal Cannula O2 Flow Rate 2.00 2.00 2.00 2.00 08/28/22 08/28/22 08/28/22 08/28/22 13:10 14:00 14:00 14:01 Temp 36.9 Pulse 115 112 Resp 25 B/P (MAP) 126/60 (82) Pulse Ox 96 93 O2 Delivery Room Air Nasal Cannula Room Air O2 Flow Rate 0.00 2.00 08/28/22 08/28/22 08/28/22 08/28/22 14:10 14:30 14:31 14:31 B/P (MAP) Pulse Ox 95 89 O2 Delivery Room Air Nasal Cannula Nasal Cannula Room Air O2 Flow Rate 2.00 2.00 0.00 08/28/22 08/28/22 08/28/22 08/28/22 15:49 15:54 15:58 16:02 Temp 36.5 Pulse 123 Resp 22 B/P (MAP) 143/104 (117) Pulse Ox 95 93 97 O2 Delivery Nasal Cannula Nasal Cannula Nasal Cannula O2 Flow Rate 2.00 2.00 2.00 08/28/22 16:56 Pulse 120 Resp 20 B/P (MAP) 145/98 (114) Pulse Ox 93 O2 Delivery Nasal Cannula O2 Flow Rate 2.00 08/27/22 23:59 Intake Total 1800 ml Output Total 3400 ml Balance -1600 ml Weight (Pounds): 120 Weight (Ounces): 12.0 Weight (Calculated Kilograms): 54.019648 Constitutional: No AAO x 3; well-developed, well-nourished Respiratory: No accessory muscle use, No respiratory distress; chest expansion is symmetric, chest is bilaterally symmetric, other (diminished bases bilat; poor inspiratory effort) Cardiovascular: tachycardia, S1 and S2 Gastrointestional: No tender; soft; No guarding; audible bowel sounds Extremities: no lower extremity edema bilateral Neurologic/Psychiatric: other (moves all limbs) Skin: No rash on exposed areas, No ulcerations on exposed areas Results/Procedures: Labs Laboratory Tests 08/28/22 04:17: White Blood Count 11.0, Red Blood Count 4.21L, Hemoglobin 13.0L, Hematocrit 37L, Mean Corpuscular Volume 88, Mean Corpuscular Hemoglobin 31, Mean Corpuscular Hemoglobin Concent 35, Red Cell Distribution Width 11.9, Platelet Count 144, Mean Platelet Volume 10.0, Immature Granulocyte % (Auto) 1, Neutrophils (%) (Auto) 70, Lymphocytes (%) (Auto) 12, Monocytes (%) (Auto) 16H, Eosinophils (%) (Auto) 0, Basophils (%) (Auto) 0, Neutrophils # (Auto) 7.7, Lymphocytes # (Auto) 1.4, Monocytes # (Auto) 1.8H, Eosinophils # (Auto) 0.0, Basophils # (Auto) 0.0, Immature Granulocyte # (Auto) 0.1, Sodium Level 135, Potassium Level 3.1L, Chloride Level 101, Carbon Dioxide Level 24, Anion Gap 10, Blood Urea Nitrogen 7, Creatinine 0.80, Estimat Glomerular Filtration Rate 129, BUN/Creatinine Ratio 9, Glucose Level 86, Calcium Level 8.1L, Corrected Calcium 9.0, Magnesium Level 2.2, Total Bilirubin 1.2H, Aspartate Amino Transf (AST/SGOT) 43H, Alanine Aminotransferase (ALT/SGPT) 43, Alkaline Phosphatase 75, Total Protein 5.6L, Albumin 2.9L Microbiology 08/27/22 MRSA Screen - Final, Complete MRSA not isolated 08/27/22 Blood Culture - Preliminary, Resulted No growth Laboratory Tests 08/27/22 04:50 08/28/22 04:17 A/P: Assessment: Sinus tachycardia - likely d/t alcohol/drug withdrawal - Echocardiogram of 08-27-22 showed LVEF 55-60%. Mod L pl effusion. Pleural effusions ETOH abuse - 1 pint of Vodka/day Denies any Rx/street drug usage - tested positive for benzo's and opiates this admission Acute pancreatitis - management per medical services Anxiety/Depression Plan: Sinus tachycardia - likely d/t ETOH/drug withdrawal - treat with BB Developing bilat pl effusions with SOB - Continue IV Lasix today - replenish electrolytes Acute pancreatitis - management per medical services Advise cessation of alcohol and drug usage SHERRI GONGORA MD FACP FAC CCDS August 28, 2022 17:45
[2022-08-28] MEDS: ENOXAPARIN 40 MG/0.4 ML (LOVENOX) SYR SC SCH (20:02)
[2022-08-29] MEDS: meTOprolol 5 MG/5 ML (LOPRESSOR) VIAL IV SCH ×3 (00:22→08:28)
[2022-08-29] MEDS: RT-LEVALBUTEROL (XOPENEX) 1.25 MG/3 ML NEB NON-FORMULARY INH SCH ×4 (02:13→21:49)
[2022-08-29] MEDS: HYDROcodone/APAP 5 MG/325 MG (LORTAB) TAB PO PRN ×4 (03:03→20:14)
[2022-08-29 04:03] LABS: BASOPHILS # (AUTO) 0.1 10^3/uL (0.0-0.1); BASOPHILS % (AUTO) 1 % (0-10); EOSINOPHILS % (AUTO) 1 % (0-10); HEMATOCRIT 37 % (40-54); HEMOGLOBIN 12.9 g/dL (13.3-17.7); LYMPHOCYTES # (AUTO) 1.1 10^3/uL (1.0-4.0); LYMPHOCYTES % (AUTO) 13 % (12-44); MEAN CORPUSCULAR HEMOGLOBIN 30 pg (25-34); MEAN CORPUSCULAR HGB CONC 35 g/dL (32-36); MEAN CORPUSCULAR VOLUME 88 fL (80-99); MEAN PLATELET VOLUME 10.5 fL (9.0-12.2); MONOCYTES # (AUTO) 1.3 10^3/uL (0.0-1.0); MONOCYTES % (AUTO) 16 % (0-12); NEUTROPHILS # (AUTO) 5.9 10^3/uL (1.8-7.8); NEUTROPHILS % (AUTO) 70 % (42-75); PLATELET COUNT 175 10^3/uL (130-400); WHITE BLOOD COUNT 8.5 10^3/uL (4.3-11.0)
[2022-08-29 04:31] LABS: CALCIUM 8.3 MG/DL (8.5-10.1)
[2022-08-29 04:35] LABS: CREATININE SERUM 0.81 MG/DL (0.60-1.30)
[2022-08-29 04:37] LABS: MAGNESIUM 2.2 MG/DL (1.6-2.4)
[2022-08-29] MEDS: MAGNESIUM 1 GM/100 ML IVPB 100 ML IV SCH (04:48)
[2022-08-29] MEDS: KCL 20 MEQ TAB (K-DUR) PO SCH (04:48)
[2022-08-29] MEDS: POTASSIUM CL 10MEQ/50ML IVPB 50 ML IV SCH ×9 (04:48→13:52)
[2022-08-29] MEDS ORDERED: POTASSIUM CL 10MEQ/50ML IVPB 400 ML IV ONE (05:23)
[2022-08-29] MEDS: LORazepam INJ 2 MG/ML (ATIVAN) VIAL IV PRN (05:58)
--- NOTE | 2022-08-29 06:25 | Diagnostic Imaging Report ---
CLINICAL INDICATION: Patient with effusion. EXAM: Portable chest x-ray upright view. COMPARISON: Chest x-ray dated 08/27/2022. FINDINGS: There is interval significant decreased size of the left pleural effusion with minimal amount remaining. There is no pneumothorax. There is improved aeration of both lungs. There is residual subtle left lung base atelectasis versus infiltrate. Pulmonary vasculature and cardiac silhouette are within normal limits. Bones show no significant abnormality. IMPRESSION: There is interval near resolution of previously seen left pleural effusion. There is residual minimal left basilar atelectasis versus infiltrate. Dictated by: Dictated on workstation # [id number]
[2022-08-29 08:22] LABS: ALBUMIN 3.1 GM/DL (3.2-4.5)
[2022-08-29 08:24] LABS: TOTAL PROTEIN 6.1 GM/DL (6.4-8.2)
[2022-08-29] MEDS: FOLIC ACID 1 MG TAB PO SCH (08:27)
[2022-08-29] MEDS: THIAMINE 100 MG (VITAMIN B-1) TAB PO SCH (08:27)
[2022-08-29] MEDS: PHENobarbital 64.8 MG (1 GRAIN) TAb PO SCH (08:27)
[2022-08-29] MEDS: PANTOPRAZOLE 40 MG (PROTONIX) VIAL IV SCH (08:28)
[2022-08-29] MEDS: ONDANSETRON 4 MG/2 ML (SDV) Z0FRAN IV PRN ×2 (08:31→12:59)
--- NOTE | 2022-08-29 09:25 | Progress Note - Cardiology ---
Cardiology SOAP Progress Note Subjective: Lying in bed States he feels "pretty good" this morning Abd pain improving Tolerating clear liquids No c/o CP, palpitations or dyspnea Objective: I&O/Vital Signs 08/30/22 08/30/22 08/30/22 08/30/22 01:00 03:49 04:22 07:00 Temp 36.7 Pulse 135 110 110 Resp 28 B/P (MAP) 138/93 (108) Pulse Ox 96 97 O2 Delivery Nasal Cannula Nasal Cannula O2 Flow Rate 1.00 1.00 08/30/22 08/30/22 08/30/22 08/30/22 07:36 07:52 08:00 08:00 Pulse 117 110 Resp 22 25 B/P (MAP) 148/96 (113) 138/99 (112) Pulse Ox 97 97 94 97 O2 Delivery Nasal Cannula Nasal Cannula Nasal Cannula Nasal Cannula O2 Flow Rate 1.00 1.00 1.00 1.00 08/30/22 08:00 Temp 37.3 08/30/22 00:00 Intake Total 2200 ml Output Total 1675 ml Balance 525 ml Weight (Pounds): 120 Weight (Ounces): 12.0 Weight (Calculated Kilograms): 54.374003 Constitutional: No AAO x 3; well-developed, well-nourished Respiratory: No accessory muscle use, No respiratory distress; chest expansion is symmetric, chest is bilaterally symmetric, other (diminished bases bilat; poor inspiratory effort) Cardiovascular: tachycardia, S1 and S2 Gastrointestional: No tender; soft; No guarding; audible bowel sounds Extremities: no lower extremity edema bilateral Neurologic/Psychiatric: other (moves all limbs) Skin: No rash on exposed areas, No ulcerations on exposed areas Results/Procedures: Labs Laboratory Tests 08/29/22 12:07: Glucometer 76 08/29/22 19:36: Potassium Level 3.7 08/30/22 04:50: Potassium Level 3.8, White Blood Count 10.6, Red Blood Count 4.52, Hemoglobin 13.7, Hematocrit 40, Mean Corpuscular Volume 88, Mean Corpuscular Hemoglobin 30, Mean Corpuscular Hemoglobin Concent 34, Red Cell Distribution Width 11.9, Platelet Count 223, Mean Platelet Volume 10.3, Immature Granulocyte % (Auto) 2, Neutrophils (%) (Auto) 67, Lymphocytes (%) (Auto) 16, Monocytes (%) (Auto) 14H, Eosinophils (%) (Auto) 1, Basophils (%) (Auto) 1, Neutrophils # (Auto) 7.1, Lymphocytes # (Auto) 1.7, Monocytes # (Auto) 1.4H, Eosinophils # (Auto) 0.1, Basophils # (Auto) 0.1, Immature Granulocyte # (Auto) 0.2H, Sodium Level 135, Chloride Level 103, Carbon Dioxide Level 21, Anion Gap 11, Blood Urea Nitrogen 6L, Creatinine 0.76, Estimat Glomerular Filtration Rate 131, BUN/Creatinine Ratio 8, Glucose Level 74, Calcium Level 8.9, Corrected Calcium 9.4, Magnesium Level 2.1, Total Bilirubin 0.9, Aspartate Amino Transf (AST/SGOT) 33, Alanine Aminotransferase (ALT/SGPT) 46, Alkaline Phosphatase 82, Total Protein 6.6, Albumin 3.4 Microbiology 08/27/22 MRSA Screen - Final, Complete MRSA not isolated 08/27/22 Blood Culture - Preliminary, Resulted No growth A/P: Assessment: Sinus tachycardia - likely d/t alcohol/drug withdrawal - Echocardiogram of 08-27-22 showed LVEF 55-60%. Mod L pl effusion. Pleural effusions - improving on CXR today ETOH abuse - 1 pint of Vodka/day Hypokalemia - replace Denies any Rx/street drug usage - tested positive for benzo's and opiates this admission Acute pancreatitis - management per medical services Anxiety/Depression Plan: Sinus tachycardia - likely d/t ETOH/drug withdrawal - continue with BB, change to oral Pleural effusions improving on CXR Acute pancreatitis - management per medical services Hypokalemia - replace electrolytes Advise cessation of alcohol and drug usage BILLY COYNE Aug 29, 2022 09:25
--- NOTE | 2022-08-29 09:31 | Tele-ICU Progress Note ---
Subjective Date Seen by a Provider: Aug 29, 2022 Subjective/Events-last exam This virtual visit was conducted using real time audio/video. Thank you for asking us to see this patient for respiratory insufficiency due to acute pancreatitis. B pleural effusions. PE: Appears comfortable. VSS. O2 sat 93% on 1LPM. HEENT: No obvious masses, adenopathy or JVD. Chest: clear to auscultation. CV: RRR S1 S2 No murmur or added sounds. Abd: Non-tender. Bowel sounds Y. : Unremarkable. Andrew N. HVAC LEAD/psychiatric: Grossly intact. No obvious focal findings. Extremities: No edema. Capillary refill < 3 seconds. Skin: unremarkable. Results: Decreased Hb 12.9, Na 134, K 3.0. CXR: Minor residual L effusion.. Available chart/ vitals / labs / images reviewed. Video assessment done using teleICU camera, rest of exam as per RN. A/P: Respiratory insufficiency: Continue present management with 1LPM, weaning as doris. Cont xopenex. Critical Care: critically ill patient. Cont. Shama., PPI, Metop., pheno., folate, B6. Replace K. Consider lower level of care. Discussed with RN Farhat. Asked RN to reach out to eICU if any questions or concer ns later. Time spent with patient/coordination of care with other health professionals (mins): 20 Sepsis Event Evaluation Height, Weight, BMI Height: 5'7.00" Weight: 120lbs. 12.0oz. 54.470849ny; 22.68 BMI Method:Estimated Focused Exam Lactate Level 08/27/22 05:16: Lactic Acid Level 0.80 Exam Exam Patient acknowledged, consented, and participated in this virtual visit which was conducted using real time audio/video Vital Signs Date Time Temp Pulse Resp B/P (MAP) Pulse Ox O2 Delivery O2 Flow Rate FiO2 08/29/22 09:00 36.2 106 30 129/66 (87) 94 1.00 08/29/22 08:23 37.3 109 29 138/66 (90) 94 1.00 08/29/22 08:10 36.8 97 Nasal Cannula 1.00 08/29/22 07:34 117 08/29/22 06:00 118 21 135/96 (109) 92 Nasal Cannula 2.00 08/29/22 05:00 111 24 130/67 (88) 94 Nasal Cannula 2.00 08/29/22 04:27 37.0 08/29/22 04:00 112 24 138/72 (94) 94 Nasal Cannula 2.00 08/29/22 04:00 96 Nasal Cannula 2.00 08/29/22 03:00 128 17 136/72 (93) 95 Nasal Cannula 2.00 08/29/22 02:13 Nasal Cannula 1.50 08/29/22 02:00 128 29 140/81 (100) 94 Nasal Cannula 2.00 08/29/22 01:00 110 27 136/81 (99) 91 Nasal Cannula 2.00 08/29/22 01:00 111 08/29/22 00:00 95 Nasal Cannula 2.00 08/29/22 00:00 108 24 121/61 (81) 95 Nasal Cannula 2.00 08/28/22 23:52 36.5 08/28/22 23:00 124 36 158/88 (111) 96 Nasal Cannula 2.00 08/28/22 22:03 105 24 143/90 (107) 96 Nasal Cannula 2.00 08/28/22 21:58 Nasal Cannula 1.50 08/28/22 21:00 117 20 138/89 (105) 94 Nasal Cannula 2.00 08/28/22 20:00 96 Nasal Cannula 2.00 08/28/22 20:00 36.4 125 12 145/91 (109) 96 Nasal Cannula 2.00 08/28/22 19:00 110 08/28/22 19:00 116 14 123/67 (85) 96 Nasal Cannula 2.00 08/28/22 18:00 117 26 127/59 (81) 94 Nasal Cannula 2.00 08/28/22 16:56 120 20 145/98 (114) 93 Nasal Cannula 2.00 08/28/22 15:58 36.5 123 22 143/104 (117) 97 Nasal Cannula 2.00 08/28/22 15:54 93 Nasal Cannula 2.00 08/28/22 15:49 95 Nasal Cannula 2.00 08/28/22 14:31 89 Room Air 0.00 08/28/22 14:31 95 Nasal Cannula 2.00 08/28/22 14:30 Nasal Cannula 2.00 08/28/22 14:10 Room Air 08/28/22 14:01 36.9 112 25 126/60 (82) 93 Room Air 08/28/22 14:00 96 Nasal Cannula 2.00 08/28/22 14:00 Room Air 0.00 08/28/22 13:10 115 08/28/22 12:59 36.5 110 14 134/78 (96) 97 Nasal Cannula 2.00 08/28/22 12:18 94 Nasal Cannula 2.00 08/28/22 11:58 36.3 Nasal Cannula 2.00 08/28/22 10:59 36.6 118 27 135/71 (92) 95 Nasal Cannula 2.00 08/28/22 10:17 126 31 147/84 (105) 92 Nasal Cannula 2.00 08/28/22 10:04 95 Nasal Cannula 2.00 08/28/22 10:00 123 27 147/84 (105) 95 Nasal Cannula 2.00 08/28/22 09:58 Nasal Cannula 2.00 08/28/22 09:58 97 Nasal Cannula 4.00 I & O 08/29/22 07:00 Intake Total 3825 ml Output Total 3850 ml Balance -25 ml Height & Weight Height: 5'7.00" Weight: 120lbs. 12.0oz. [id number]; 22.68 BMI Method:Estimated General Appearance: No Apparent Distress, Anxious, Thin HEENT: PERRL/EOMI, Pharynx Normal Neck: Normal Inspection, Supple Respiratory: Decreased Breath Sounds; No Rhonci, No Wheezing Cardiovascular: Tachycardia Capillary Refill: Less Than 3 Seconds Gastrointestinal: No distended Extremity: Normal Inspection Neurologic/Psychiatric: Alert, Oriented x3 Skin: Normal Color, Warm/Dry Results Lab Laboratory Tests 08/28/22 04:17 08/29/22 03:21 Assessment/Plan Assessment/Plan See free text. Critical Care: Critically Ill Patient JOO REGAAN MD Aug 29, 2022 09:31
[2022-08-29] MEDS ORDERED: meTOprolol TARTRATE 25 MG (LOPRESSOR) TABLET PO NR (09:37)
--- NOTE | 2022-08-29 10:26 | Progress Note - Hospitalist ---
Subjective HPI/CC On Admission Date Seen by Provider: Aug 29, 2022 Asif Preciado is a 21 year old male who presented with abdominal pain. The pain is diffuse but more sharp in the epigastric region. He has also had nausea and vomiting. He denies fevers and chills. He drinks most days. He reports having about 10 drinks yesterday. He denies any history of alcohol withdrawal. He has no history of pancreatitis. Subjective/Events-last exam Pt reports doing well. Thinks he has turned a corner today. No complaints. Abd pain improving. Focused Exam Lactate Level 08/27/22 05:16: Lactic Acid Level 0.80 Objective Exam Vital Signs Vital Signs Date Time Temp Pulse Resp B/P (MAP) Pulse Ox O2 Delivery O2 Flow Rate FiO2 08/29/22 10:00 36.2 112 20 123/71 (88) 95 1.00 08/29/22 08:10 Nasal Cannula Capillary Refill : Less Than 3 Seconds General Appearance: No Apparent Distress Respiratory: Lungs Clear, No Accessory Muscle Use Cardiovascular: No Murmur, Tachycardia Gastrointestinal: Normal Bowel Sounds, Soft Neurologic/Psychiatric: Alert, Oriented x3 Results/Procedures Lab Laboratory Tests 08/29/22 03:21 Patient resulted labs reviewed. Imaging: Reviewed Imaging Report Assessment/Plan Assessment and Plan Assess & Plan/Chief Complaint Acute alcoholic pancreatitis Alcohol dependence LFTs elevated Sinus tachycardia Continue Metoprolol. switched to oral today, HR improving Cardiology consulted, appreciate recs Continue Pain regimen Tolerating CLD- advance to bland diet today Labs improving, monitor CT consistent with severe pancreatitis, free fluid, no drainable fluid collection DNo further fever so will defer repeat CT for now [facility] protocol- transfer to stepdown Critical Care Critically Ill Patient FLORIDALMA MOSQUERA MD Aug 29, 2022 10:26
[2022-08-29] MEDS: LACTATED RINGERS 1,000 ML IV SCH ×2 (11:18→23:09)
[2022-08-29] MEDS: HYDROmorphone 2 MG/ML VIAL (DILAUDID) IV PRN (15:29)
--- NOTE | 2022-08-29 17:41 | Progress Note - Cardiology ---
Cardiology SOAP Progress Note Subjective: Abd and back pain are better No cp or palp or syncope No shortness of breath at rest No dizziness No n/v/d No focal weakness Some gen weakness Objective: I&O/Vital Signs 08/29/22 08/29/22 08/29/22 08/29/22 06:00 07:34 08:00 08:10 Temp 36.8 Pulse 118 117 Resp 21 B/P (MAP) 135/96 (109) Pulse Ox 92 96 97 O2 Delivery Nasal Cannula Nasal Cannula Nasal Cannula O2 Flow Rate 2.00 1.00 1.00 08/29/22 08/29/22 08/29/22 08/29/22 08:23 09:00 10:00 11:00 Temp 37.3 36.2 36.2 36.7 Pulse 109 106 112 104 Resp 20 22 B/P (MAP) 138/66 (90) 129/66 (87) 123/71 (88) 136/89 (105) Pulse Ox 94 94 95 96 O2 Delivery Nasal Cannula O2 Flow Rate 1.00 1.00 1.00 1.00 08/29/22 08/29/22 08/29/22 08/29/22 12:00 12:00 13:00 13:19 Temp 36.5 37.1 Pulse 99 103 101 Resp 25 32 B/P (MAP) 128/72 (90) 134/84 (101) Pulse Ox 96 94 95 O2 Delivery Nasal Cannula Nasal Cannula Nasal Cannula O2 Flow Rate 1.00 1.00 1.00 08/29/22 08/29/22 08/29/22 08/29/22 15:00 15:53 16:00 16:00 Temp 37.0 37.2 36.8 Pulse 109 114 102 Resp 28 22 19 B/P (MAP) 140/86 (104) 137/90 (106) 137/101 (113) Pulse Ox 95 91 96 99 O2 Delivery Nasal Cannula O2 Flow Rate 1.00 08/29/22 17:00 Temp 37.0 Pulse 109 Resp 25 B/P (MAP) 143/91 (108) Pulse Ox 90 08/29/22 00:00 Intake Total 1925 ml Output Total 2475 ml Balance -550 ml Weight (Pounds): 120 Weight (Ounces): 12.0 Weight (Calculated Kilograms): 54.449771 Constitutional: AAO x 3, well-developed, well-nourished Respiratory: No accessory muscle use, No respiratory distress; chest expansion is symmetric, chest is bilaterally symmetric, other (diminished bases bilat; poor inspiratory effort) Cardiovascular: tachycardia, S1 and S2 Gastrointestional: No tender; soft; No guarding; audible bowel sounds Extremities: no lower extremity edema bilateral Neurologic/Psychiatric: other (moves all limbs) Skin: No rash on exposed areas, No ulcerations on exposed areas Results/Procedures: Labs Laboratory Tests 08/29/22 03:21: White Blood Count 8.5, Red Blood Count 4.25L, Hemoglobin 12.9L, Hematocrit 37L, Mean Corpuscular Volume 88, Mean Corpuscular Hemoglobin 30, Mean Corpuscular Hemoglobin Concent 35, Red Cell Distribution Width 12.0, Platelet Count 175, Mean Platelet Volume 10.5, Immature Granulocyte % (Auto) 1, Neutrophils (%) (A uto) 70, Lymphocytes (%) (Auto) 13, Monocytes (%) (Auto) 16H, Eosinophils (%) ( Auto) 1, Basophils (%) (Auto) 1, Neutrophils # (Auto) 5.9, Lymphocytes # (Auto) 1.1, Monocytes # (Auto) 1.3H, Eosinophils # (Auto) 0.0, Basophils # (Auto) 0.1, Immature Granulocyte # (Auto) 0.1, Sodium Level 134L, Potassium Level 3.0L, C hloride Level 100, Carbon Dioxide Level 23, Anion Gap 11, Blood Urea Nitrogen 5L , Creatinine 0.81, Estimat Glomerular Filtration Rate 129, BUN/Creatinine Ratio 6, Glucose Level 86, Calcium Level 8.3L, Corrected Calcium 9.0, Phosphorus Level 2.8, Magnesium Level 2.2, Total Bilirubin 1.0, Aspartate Amino Transf (AST/SGOT) 52H, Alanine Aminotransferase (ALT/SGPT) 53, Alkaline Phosphatase 81, Total Protein 6.1L, Albumin 3.1L 08/29/22 12:07: Glucometer 76 Microbiology 08/27/22 MRSA Screen - Final, Complete MRSA not isolated 08/27/22 Blood Culture - Preliminary, Resulted No growth Laboratory Tests 08/28/22 04:17 08/29/22 03:21 A/P: Assessment: Sinus tachycardia - likely d/t alcohol/drug withdrawal - Echocardiogram of 08-27-22 showed LVEF 55-60%. Mod L pl effusion. Pleural effusions - improving on CXR today ETOH abuse - 1 pint of Vodka/day Hypokalemia - replace Denies any Rx/street drug usage - tested positive for benzo's and opiates this admission Acute pancreatitis - management per medical services Anxiety/Depression Plan: Sinus tachycardia - likely d/t ETOH/drug withdrawal - continue with BB, change to oral Pleural effusions improving on CXR Acute pancreatitis - management per medical services Hypokalemia - replace electrolytes Advise cessation of alcohol and drug usage SHERRI GONGORA MD FACP FACC CCDS Aug 29, 2022 17:41
[2022-08-29] MEDS: LORazepam 1 MG (ATIVAN) TAB PO PRN (17:48)
[2022-08-29] MEDS: meTOprolol TARTRATE 25 MG (LOPRESSOR) TABLET PO SCH (21:23)
[2022-08-29] MEDS: ENOXAPARIN 40 MG/0.4 ML (LOVENOX) SYR SC SCH (21:24)
[2022-08-30] MEDS: HYDROcodone/APAP 5 MG/325 MG (LORTAB) TAB PO PRN ×6 (01:05→23:56)
[2022-08-30] MEDS: RT-LEVALBUTEROL (XOPENEX) 1.25 MG/3 ML NEB NON-FORMULARY INH SCH (03:31)
[2022-08-30] MEDS: HYDROmorphone 2 MG/ML VIAL (DILAUDID) IV PRN (04:01)
[2022-08-30 05:37] LABS: BASOPHILS # (AUTO) 0.1 10^3/uL (0.0-0.1); BASOPHILS % (AUTO) 1 % (0-10); EOSINOPHILS # (AUTO) 0.1 10^3/uL (0.0-0.3); EOSINOPHILS % (AUTO) 1 % (0-10); HEMATOCRIT 40 % (40-54); HEMOGLOBIN 13.7 g/dL (13.3-17.7); LYMPHOCYTES # (AUTO) 1.7 10^3/uL (1.0-4.0); LYMPHOCYTES % (AUTO) 16 % (12-44); MEAN CORPUSCULAR HEMOGLOBIN 30 pg (25-34); MEAN CORPUSCULAR HGB CONC 34 g/dL (32-36); MEAN CORPUSCULAR VOLUME 88 fL (80-99); MEAN PLATELET VOLUME 10.3 fL (9.0-12.2); MONOCYTES # (AUTO) 1.4 10^3/uL (0.0-1.0); MONOCYTES % (AUTO) 14 % (0-12); NEUTROPHILS # (AUTO) 7.1 10^3/uL (1.8-7.8); NEUTROPHILS % (AUTO) 67 % (42-75); PLATELET COUNT 223 10^3/uL (130-400); WHITE BLOOD COUNT 10.6 10^3/uL (4.3-11.0)
[2022-08-30 05:51] LABS: ALBUMIN 3.4 GM/DL (3.2-4.5); POTASSIUM 3.8 MMOL/L (3.6-5.0)
[2022-08-30 05:52] LABS: CALCIUM 8.9 MG/DL (8.5-10.1)
[2022-08-30] MEDS: POTASSIUM CL 10MEQ/50ML IVPB 50 ML IV SCH (05:52)
[2022-08-30 05:53] LABS: TOTAL PROTEIN 6.6 GM/DL (6.4-8.2)
[2022-08-30 05:55] LABS: BILIRUBIN,TOTAL 0.9 MG/DL (0.1-1.0)
[2022-08-30 05:57] LABS: CREATININE SERUM 0.76 MG/DL (0.60-1.30)
[2022-08-30] MEDS: KCL 20 MEQ TAB (K-DUR) PO SCH (05:57)
[2022-08-30 05:59] LABS: MAGNESIUM 2.1 MG/DL (1.6-2.4)
[2022-08-30] MEDS: MAGNESIUM 1 GM/100 ML IVPB 100 ML IV SCH (06:01)
[2022-08-30] MEDS: THIAMINE 100 MG (VITAMIN B-1) TAB PO SCH (06:50)
[2022-08-30] MEDS: FOLIC ACID 1 MG TAB PO SCH (08:35)
[2022-08-30] MEDS: meTOprolol TARTRATE 25 MG (LOPRESSOR) TABLET PO SCH ×2 (08:35→21:13)
[2022-08-30] MEDS: PANTOPRAZOLE 40 MG (PROTONIX) VIAL IV SCH (08:35)
--- NOTE | 2022-08-30 10:57 | Progress Note - Hospitalist ---
Subjective HPI/CC On Admission Date Seen by Provider: Aug 30, 2022 Asif Preciado is a 21 year old male who presented with abdominal pain. The pain is diffuse but more sharp in the epigastric region. He has also had nausea and vomiting. He denies fevers and chills. He drinks most days. He reports having about 10 drinks yesterday. He denies any history of alcohol withdrawal. He has no history of pancreatitis. Subjective/Events-last exam Pt reports doing "terrible" when asked about how so he was unable to elaborate. He then states he's actually better than he has been and thinks he's a lot better than yesterday he just has some stomach pain. Objective Exam Vital Signs Vital Signs Date Time Temp Pulse Resp B/P (MAP) Pulse Ox O2 Delivery O2 Flow Rate FiO2 08/30/22 08:00 37.3 08/30/22 08:00 97 Nasal Cannula 1.00 08/30/22 08:00 110 25 138/99 (112) Capillary Refill : Less Than 3 Seconds General Appearance: No Apparent Distress, Thin Cardiovascular: No Murmur, Tachycardia Gastrointestinal: Normal Bowel Sounds, Non Tender, Soft Neurologic/Psychiatric: Alert, Oriented x3 Results/Procedures Lab Laboratory Tests 08/29/22 19:36 08/30/22 04:50 Patient resulted labs reviewed. Imaging: Reviewed Imaging Report Assessment/Plan Assessment and Plan Assess & Plan/Chief Complaint Acute alcoholic pancreatitis Alcohol dependence LFTs elevated Sinus tachycardia Continue Metoprolol, HR continues to improve Cardiology consulted, appreciate recs Continue Pain regimen Continue current diet Labs improving, monitor CT consistent with severe pancreatitis, free fluid, no drainable fluid collection [facility] protocol Critical Care Critically Ill Patient FLORIDALMA MOSQUERA MD Aug 30, 2022 10:57
--- NOTE | 2022-08-30 11:18 | Progress Note - Cardiology ---
Cardiology SOAP Progress Note Subjective: Lying in bed States he feels unwell today d/t abdominal discomfort No c/o CP or SOB No c/o palpitations Family x 1 at the bedside Objective: I&O/Vital Signs 09/02/22 09/02/22 09/02/22 09/02/22 00:18 04:00 08:00 08:02 Temp 36.5 36.6 36.8 Pulse 82 84 79 Resp 16 16 20 B/P (MAP) 152/84 (106) 148/80 (102) 142/76 (98) Pulse Ox 98 98 97 O2 Delivery Room Air Room Air Room Air Room Air O2 Flow Rate 0.00 0.00 09/02/22 00:00 Intake Total 2200 ml Balance 2200 ml Weight (Pounds): 120 Weight (Ounces): 12.0 Weight (Calculated Kilograms): 54.327108 Constitutional: AAO x 3, well-developed, well-nourished Respiratory: No accessory muscle use, No respiratory distress; chest expansion is symmetric, chest is bilaterally symmetric, other (diminished bases bilat; poor inspiratory effort) Cardiovascular: tachycardia, S1 and S2 Gastrointestional: No tender; soft; No guarding; audible bowel sounds Extremities: no lower extremity edema bilateral Neurologic/Psychiatric: other (moves all limbs) Skin: No rash on exposed areas, No ulcerations on exposed areas Results/Procedures: Labs Microbiology 08/27/22 MRSA Screen - Final, Complete MRSA not isolated 08/27/22 Blood Culture - Preliminary, Resulted No growth A/P: Assessment: Sinus tachycardia - likely d/t alcohol/drug withdrawal - Echocardiogram of 08-27-22 showed LVEF 55-60%. Mod L pl effusion. Pleural effusions - improved ETOH abuse - 1 pint of Vodka/day - cessation advised Hypokalemia - resolved Denies any Rx/street drug usage - tested positive for benzo's and opiates this admission Acute pancreatitis - management per medical services Anxiety/Depression Plan: Sinus tachycardia - likely d/t ETOH/drug withdrawal - continue with BB Acute pancreatitis - management per medical services Monitor lab - replace electrolytes as indicated Advise cessation of alcohol and drug usage BILLY COYNE Aug 30, 2022 11:17
[2022-08-30] MEDS: LACTATED RINGERS 1,000 ML IV SCH (12:30)
[2022-08-30] MEDS: ONDANSETRON 4 MG (ZOFRAN) ORAL DISSOLVE TAB SL PRN (17:42)
--- NOTE | 2022-08-30 18:39 | Progress Note - Cardiology ---
Cardiology SOAP Progress Note Subjective: No cp or palp or syncope No shortness of breath at rest No n/v/d No focal weakness Gen weakness and malaise present Objective: I&O/Vital Signs 08/30/22 08/30/22 08/30/22 08/30/22 07:00 07:36 07:52 08:00 Pulse 110 117 110 Resp 22 25 B/P (MAP) 148/96 (113) 138/99 (112) Pulse Ox 97 97 94 O2 Delivery Nasal Cannula Nasal Cannula Nasal Cannula O2 Flow Rate 1.00 1.00 1.00 08/30/22 08/30/22 08/30/22 08/30/22 08:00 08:00 11:00 13:00 Temp 37.3 36.5 Pulse 105 104 Resp 24 B/P (MAP) 135/95 (108) Pulse Ox 97 96 O2 Delivery Nasal Cannula Nasal Cannula O2 Flow Rate 1.00 1.00 08/30/22 08/30/22 15:00 16:17 Temp 36.6 Pulse 106 Resp 26 B/P (MAP) 151/98 (115) Pulse Ox 98 O2 Delivery Nasal Cannula O2 Flow Rate 1.00 08/30/22 00:00 Intake Total 2200 ml Output Total 1675 ml Balance 525 ml Weight (Pounds): 120 Weight (Ounces): 12.0 Weight (Calculated Kilograms): 54.321970 Constitutional: AAO x 3, well-developed, well-nourished Respiratory: No accessory muscle use, No respiratory distress; chest expansion is symmetric, chest is bilaterally symmetric, other (diminished bases bilat; poor inspiratory effort) Cardiovascular: tachycardia, S1 and S2 Gastrointestional: No tender; soft; No guarding; audible bowel sounds Extremities: no lower extremity edema bilateral Neurologic/Psychiatric: other (moves all limbs) Skin: No rash on exposed areas, No ulcerations on exposed areas Results/Procedures: Labs Laboratory Tests 08/29/22 19:36: Potassium Level 3.7 08/30/22 04:50: Potassium Level 3.8, White Blood Count 10.6, Red Blood Count 4.52, Hemoglobin 13.7, Hematocrit 40, Mean Corpuscular Volume 88, Mean Corpuscular Hemoglobin 30, Mean Corpuscular Hemoglobin Concent 34, Red Cell Distribution Width 11.9, Platelet Count 223, Mean Platelet Volume 10.3, Immature Granulocyte % (Auto) 2, Neutrophils (%) (Auto) 67, Lymphocytes (%) (Auto) 16, Monocytes (%) (Auto) 14H, Eosinophils (%) (Auto) 1, Basophils (%) (Auto) 1, Neutrophils # (Auto) 7.1, Lymphocytes # (Auto) 1.7, Monocytes # (Auto) 1.4H, Eosinophils # (Auto) 0.1, Basophils # (Auto) 0.1, Immature Granulocyte # (Auto) 0.2H, Sodium Level 135, Chloride Level 103, Carbon Dioxide Level 21, Anion Gap 11, Blood Urea Nitrogen 6L, Creatinine 0.76, Estimat Glomerular Filtration Rate 131, BUN/Creatinine Ratio 8, Glucose Level 74, Calcium Level 8.9, Corrected Calcium 9.4, Magnesium Level 2.1, Total Bilirubin 0.9, Aspartate Amino Transf (AST/SGOT) 33, Alanine Aminotransferase (ALT/SGPT) 46, Alkaline Phosphatase 82, Total Protein 6.6, Albumin 3.4 Microbiology 08/27/22 MRSA Screen - Final, Complete MRSA not isolated 08/27/22 Blood Culture - Preliminary, Resulted No growth Laboratory Tests 08/29/22 03:21 08/29/22 19:36 08/30/22 04:50 A/P: Assessment: Sinus tachycardia - likely d/t alcohol/drug withdrawal - Echocardiogram of 08-27-22 showed LVEF 55-60%. Mod L pl effusion. Pleural effusions - improved ETOH abuse - 1 pint of Vodka/day - cessation advised Hypokalemia - resolved Denies any Rx/street drug usage - tested positive for benzo's and opiates this admission Acute pancreatitis - management per medical services Anxiety/Depression Plan: Sinus tachycardia - likely d/t ETOH/drug withdrawal - continue with BB Acute pancreatitis - management per medical services Monitor lab - replace electrolytes as indicated Advise cessation of alcohol and drug usage SHERRI GONGORA MD FACP [facility] Aug 30, 2022 18:39
[2022-08-30] MEDS: ENOXAPARIN 40 MG/0.4 ML (LOVENOX) SYR SC SCH (21:13)
[2022-08-31] MEDS: LACTATED RINGERS 1,000 ML IV SCH (02:07)
[2022-08-31] MEDS: HYDROcodone/APAP 5 MG/325 MG (LORTAB) TAB PO PRN ×5 (04:06→20:30)
[2022-08-31 05:07] LABS: BASOPHILS # (AUTO) 0.1 10^3/uL (0.0-0.1); BASOPHILS % (AUTO) 1 % (0-10); EOSINOPHILS # (AUTO) 0.1 10^3/uL (0.0-0.3); EOSINOPHILS % (AUTO) 1 % (0-10); HEMATOCRIT 41 % (40-54); HEMOGLOBIN 14.3 g/dL (13.3-17.7); LYMPHOCYTES # (AUTO) 1.7 10^3/uL (1.0-4.0); LYMPHOCYTES % (AUTO) 14 % (12-44); MEAN CORPUSCULAR HEMOGLOBIN 30 pg (25-34); MEAN CORPUSCULAR HGB CONC 35 g/dL (32-36); MEAN CORPUSCULAR VOLUME 86 fL (80-99); MEAN PLATELET VOLUME 10.3 fL (9.0-12.2); MONOCYTES # (AUTO) 1.2 10^3/uL (0.0-1.0); MONOCYTES % (AUTO) 9 % (0-12); NEUTROPHILS # (AUTO) 9.3 10^3/uL (1.8-7.8); NEUTROPHILS % (AUTO) 74 % (42-75); PLATELET COUNT 284 10^3/uL (130-400); WHITE BLOOD COUNT 12.6 10^3/uL (4.3-11.0)
[2022-08-31 05:14] LABS: ALBUMIN 3.5 GM/DL (3.2-4.5)
[2022-08-31 05:15] LABS: POTASSIUM 4.2 MMOL/L (3.6-5.0)
[2022-08-31 05:16] LABS: CALCIUM 9.2 MG/DL (8.5-10.1)
[2022-08-31 05:17] LABS: TOTAL PROTEIN 7.1 GM/DL (6.4-8.2)
[2022-08-31 05:19] LABS: BILIRUBIN,TOTAL 0.8 MG/DL (0.1-1.0)
[2022-08-31 05:21] LABS: CREATININE SERUM 0.77 MG/DL (0.60-1.30)
[2022-08-31] MEDS: KCL 20 MEQ TAB (K-DUR) PO SCH (06:15)
[2022-08-31] MEDS: POTASSIUM CL 10MEQ/50ML IVPB 50 ML IV SCH (06:15)
[2022-08-31] MEDS: MAGNESIUM 1 GM/100 ML IVPB 100 ML IV SCH (06:15)
[2022-08-31] MEDS: THIAMINE 100 MG (VITAMIN B-1) TAB PO SCH (08:04)
[2022-08-31] MEDS: meTOprolol TARTRATE 25 MG (LOPRESSOR) TABLET PO SCH ×2 (08:04→20:30)
[2022-08-31] MEDS: FOLIC ACID 1 MG TAB PO SCH (08:05)
[2022-08-31] MEDS: PANTOPRAZOLE 40 MG (PROTONIX) VIAL IV SCH (08:05)
--- NOTE | 2022-08-31 09:36 | Physical Therapy Evaluation ---
PT Evaluation-General Medical Diagnosis Admission Date August 24, 2022 at 01:40 Medical Diagnosis: acute alcoholic pancreatitis Onset Date: August 24, 2022 Therapy Diagnosis Therapy Diagnosis: none Height/Weight Height (Feet): 5 Height (Inches): 7.00 Weight (Pounds): 120 Weight (Ounces): 12.0 Precautions Precautions/Isolations: Fall Prevention, Standard Precautions Weight Bear Status Right Lower Extremity: Right Full Weight Bearing Left Lower Extremity: Left Full Weight Bearing Referral Physician: Magda Reason for Referral: Evaluation/Treatment Medical History Pertinent Medical History: Smoking Additional Medical History Daily ETOH Current History Presented to ED with abdominal pain, diagnosed with actue alcoholic pancreatitis Reviewed History: Yes Social History Home: Single Level Current Living Status: Alone Entry Into Home: Stairs With Railing PT Steps Into Home: 3 Prior Prior Level of Function SCALE: Activities may be completed with or without assistive devices. 7-Zodkjfcwnr-qrbgrqc completes the activity by him/herself with no assistance from a helper. 5-Set-up or Clean-up Assistance-helper sets up or cleans up; patient completes activity. Bunkie assists only prior to or following the activity. 4-Supervision or Touching Assistance-helper provides verbal cues and/or touching/steadying and/or contact guard assistance as patient completes activity. Assistance may be provided throughout the activity or intermittently. 3-Partial/Moderate Assistance-helper does LESS THAN HALF the effort. Bunkie lifts, holds or supports trunk or limbs, but provides less than half the effort. 2-Substantial/Maximal Assistance-helper does MORE THAN HALF the effort. Bunkie lifts or holds trunk or limbs and provides more than half the effort. 8-Nfrkeeecb-zfdope does ALL the effort. Patient does none of the effort to complete the activity. Or, the assistance of 2 or more helpers is required for the patient to complete the activity. If activity was not attempted, code reason: 7-Patient Refused. 9-Not Applicable-not attempted and the patient did not perform the activity before the current illness, exacerbation or injury. 10-Not Attempted due to Environmental Limitations-(lack of equipment, weather restraints, etc.). 88-Not Attempted due to Medical Conditions or Safety Concerns. Bed Mobility: 6 Transfers (B,C,W/C): 6 Gait: 6 Stairs: 6 Wheelchair Mobility: 9 Indoor Mobility (Ambulation): Independent Stairs: Independent Prior Devices Use: None PT Evaluation-Current Subjective Pt in bed, agreeable. Reports he feels "just a little weak from not doing anything" but denies functional mobility limitations. Denies need for PT services as he is near PLOF. Pain Numeric Pain Scale: 5-Moderate Pain Location: Upper Location Body Site: Abdomen Pain Description: Dull Pt/Family Goals home Objective Patient Orientation: Person, Place, Time, Situation Attachments: IV Monitor lines ROM/Strength ROM Upper Extremities WFL for mobility ROM Lower Extremities WFL for functional mobility Strength Upper Extremities WFL for functional mobility Strength Lower Extremities WFL for functional mobility Integumentary/Posture Integumentary See nurses' notes Bowel Incontinence: No Bladder Incontinence: No Posture Normal Sensory Vision: Functional Hearing: Functional Transfers Roll Left to Right (QC): 6 Sit to Lying (QC): 6 Lying to Sitting/Side of Bed(Q: 6 Sit to Stand (QC): 6 Gait Does the Patient Walk?: Yes Mode of Locomotion: Walk Anticipated Mode of Locomotion: Walk Gait Assistive Device: None Comments/Gait Description Pt limited due to monitor lines. Pt performed marching at EOB, static stance EO and EC, and NBOS (I), no unsteadiness or LOB. Pt donned pants (I) as well. Wheelchair Training Does the Pt Use a Wheelchair?: No Type of Wheelchair: N/A Balance Sitting Static: Normal Sitting Dynamic: Normal Standing Static: Normal Standing Dynamic: Normal Treatment Eval only. No skilled PT indicated at this time. Returned to bed, nurse in room. Nursing notified of PT findings. Assessment/Needs Pt is very near PLOF and does not demonstrate functional mobility limitations at this time. No skilled PT indicated. Rehab Potential: Good PT Group Home Goals Group Home Goals No LTGs established, Pt is very near PLOF and PT is not indicated. PT Plan Treatment/Plan Treatment Plan: Discontinue PT Treatment Duration: Aug 31, 2022 Frequency: 1 time per week Estimated Hrs Per Day: .25 hour per day Patient and/or Family Agrees t: Yes Eval and discharge as Pt has no skilled PT needs at this time. Discharge Recommendations Therapy Discharge Recommendati: Home & Family Time Time In: 901 Time Out: 909 DATE: Aug 31, 2022 Total Billed Treatment Time: 8 Total Billed Treatment 1, TALON JOHNSON DPT Aug 31, 2022 09:36
[2022-08-31] MEDS ORDERED: SENNA W/DOCUSATE (SENOKOT S) TABLET PO PRN (10:30)
[2022-08-31] MEDS ORDERED: FLEET ENEMA ADULT 1 EA BTL PR PRN (10:30)
--- NOTE | 2022-08-31 10:50 | Progress Note - Hospitalist ---
Subjective HPI/CC On Admission Date Seen by Provider: Aug 31, 2022 Asif Preciado is a 21 year old male who presented with abdominal pain. The pain is diffuse but more sharp in the epigastric region. He has also had nausea and vomiting. He denies fevers and chills. He drinks most days. He reports having about 10 drinks yesterday. He denies any history of alcohol withdrawal. He has no history of pancreatitis. Subjective/Events-last exam Pt reports doing better today. Still having abdominal pain but thinks it is do to constipation. Not related to eating. Objective Exam Vital Signs Vital Signs Date Time Temp Pulse Resp B/P (MAP) Pulse Ox O2 Delivery O2 Flow Rate FiO2 08/31/22 09:30 36.1 106 16 144/94 (111) 97 Room Air 08/30/22 20:00 1.00 Capillary Refill : Less Than 3 Seconds General Appearance: No Apparent Distress, Thin Respiratory: Lungs Clear, No Respiratory Distress Cardiovascular: No Murmur, Tachycardia Gastrointestinal: Normal Bowel Sounds, Soft Neurologic/Psychiatric: Alert, Oriented x3 Results/Procedures Lab Laboratory Tests 08/31/22 04:43 Patient resulted labs reviewed. Imaging: Reviewed Imaging Report Assessment/Plan Assessment and Plan Assess & Plan/Chief Complaint Acute alcoholic pancreatitis Alcohol dependence LFTs elevated Sinus tachycardia Constipation Continue Metoprolol, HR down into the 90s when I entered room Cardiology consulted, appreciate recs Continue Pain regimen- attempt control with only orals Continue current diet Labs improving, monitor CT consistent with severe pancreatitis, free fluid, no drainable fluid collection CIWA protocol- no ativan needed since 08/29 Bowel regimen started Transfer to 4th Critical Care Critically Ill Patient FLORIDALMA MOSQUERA MD Aug 31, 2022 10:50
[2022-08-31 12:19] VITALS: BP 137/88
--- NOTE | 2022-08-31 14:35 | Progress Note - Cardiology ---
Cardiology SOAP Progress Note Subjective: No cp or palp or syncope or shortness of breath No n/v/d No focal weakness Gen weakness and malaise present Request that tele be removed Objective: I&O/Vital Signs 08/31/22 08/31/22 08/31/22 08/31/22 04:00 04:08 07:00 07:00 Temp 37.2 36.1 Pulse 105 109 106 102 Resp 27 16 16 B/P (MAP) 141/90 (107) 141/90 (107) 144/94 (111) Pulse Ox 90 95 97 O2 Delivery Room Air Room Air Room Air 08/31/22 08/31/22 08/31/22 08/31/22 08:00 09:30 12:19 13:12 Temp 36.1 36.6 Pulse 106 100 84 Resp 16 18 B/P (MAP) 144/94 (111) 137/88 (104) Pulse Ox 95 97 97 O2 Delivery Room Air Room Air Room Air 08/31/22 00:00 Intake Total 1900 ml Output Total 3300 ml Balance -1400 ml Weight (Pounds): 120 Weight (Ounces): 12.0 Weight (Calculated Kilograms): 54.111937 Constitutional: AAO x 3, well-developed, well-nourished Respiratory: No accessory muscle use, No respiratory distress; chest expansion is symmetric, chest is bilaterally symmetric, other (diminished bases bilat; poor inspiratory effort) Cardiovascular: tachycardia, S1 and S2 Gastrointestional: No tender; soft; No guarding; audible bowel sounds Extremities: no lower extremity edema bilateral Neurologic/Psychiatric: other (moves all limbs) Skin: No rash on exposed areas, No ulcerations on exposed areas Results/Procedures: Labs Laboratory Tests 08/31/22 04:43: White Blood Count 12.6H, Red Blood Count 4.71, Hemoglobin 14.3, Hematocrit 41, M janneth Corpuscular Volume 86, Mean Corpuscular Hemoglobin 30, Mean Corpuscular Hemoglobin Concent 35, Red Cell Distribution Width 11.9, Platelet Count 284, Mean Platelet Volume 10.3, Immature Granulocyte % (Auto) 2, Neutrophils (%) (Auto) 74, Lymphocytes (%) (Auto) 14, Monocytes (%) (Auto) 9, Eosinophils (%) (Auto) 1, Basophils (%) (Auto) 1, Neutrophils # (Auto) 9.3H, Lymphocytes # (Auto) 1.7, Monocytes # (Auto) 1.2H, Eosinophils # (Auto) 0.1, Basophils # (Auto) 0.1, Immature Granulocyte # (Auto) 0.2H, Sodium Level 133L, Potassium Level 4.2, Chloride Level 101, Carbon Dioxide Level 19L, Anion Gap 13, Blood Urea Nitrogen 7, Creatinine 0.77, Estimat Glomerular Filtration Rate 131, BUN/Creatinine Ratio 9, Glucose Level 82, Calcium Level 9.2, Corrected Calcium 9.6, Magnesium Level 2.0, Total Bilirubin 0.8, Aspartate Amino Transf (AST/SGOT) 34, Alanine Aminotransferase (ALT/SGPT) 41, Alkaline Phosphatase 88, Total Protein 7.1, Albumin 3.5 Microbiology 08/27/22 MRSA Screen - Final, Complete MRSA not isolated 08/27/22 Blood Culture - Preliminary, Resulted No growth A/P: Assessment: Sinus tachycardia - likely d/t alcohol/drug withdrawal - Echocardiogram of 08-27-22 showed LVEF 55-60%. Mod L pl effusion. Pleural effusions - improved ETOH abuse - 1 pint of Vodka/day - cessation advised Hypokalemia - resolved Denies any Rx/street drug usage - tested positive for benzo's and opiates this admission Acute pancreatitis - management per medical services Anxiety/Depression Plan: * D/c tele per patient request (tachy is sinus tachy and has improved/resolved as withdrawal symptoms have improved; no pathologic arrhythmia has been seen) * Continue beta-eddie * Monitor lab * Advised off alcohol and drugs * Advised increase ambulation SHERRI GONGORA MD FACP [facility] Aug 31, 2022 14:35
[2022-08-31 15:55] VITALS: BP 132/82
[2022-08-31 20:06] VITALS: BP 159/87
[2022-08-31] MEDS: ENOXAPARIN 40 MG/0.4 ML (LOVENOX) SYR SC SCH (20:31)
[2022-09-01] VITALS (7 sets, daily range): BP systolic 124–145; BP diastolic 18–95
[2022-09-01] MEDS: HYDROcodone/APAP 5 MG/325 MG (LORTAB) TAB PO PRN ×5 (00:55→20:56)
[2022-09-01 05:15] LABS: BASOPHILS # (AUTO) 0.1 10^3/uL (0.0-0.1); BASOPHILS % (AUTO) 1 % (0-10); EOSINOPHILS # (AUTO) 0.2 10^3/uL (0.0-0.3); EOSINOPHILS % (AUTO) 1 % (0-10); HEMATOCRIT 44 % (40-54); HEMOGLOBIN 15.1 g/dL (13.3-17.7); LYMPHOCYTES # (AUTO) 1.7 10^3/uL (1.0-4.0); LYMPHOCYTES % (AUTO) 12 % (12-44); MEAN CORPUSCULAR HEMOGLOBIN 30 pg (25-34); MEAN CORPUSCULAR HGB CONC 34 g/dL (32-36); MEAN CORPUSCULAR VOLUME 87 fL (80-99); MEAN PLATELET VOLUME 9.8 fL (9.0-12.2); MONOCYTES # (AUTO) 1.1 10^3/uL (0.0-1.0); MONOCYTES % (AUTO) 8 % (0-12); NEUTROPHILS # (AUTO) 10.5 10^3/uL (1.8-7.8); NEUTROPHILS % (AUTO) 76 % (42-75); PLATELET COUNT 347 10^3/uL (130-400); WHITE BLOOD COUNT 13.8 10^3/uL (4.3-11.0)
[2022-09-01 05:31] LABS: ALBUMIN 3.7 GM/DL (3.2-4.5)
[2022-09-01 05:32] LABS: POTASSIUM 4.1 MMOL/L (3.6-5.0)
[2022-09-01 05:33] LABS: CALCIUM 9.6 MG/DL (8.5-10.1)
[2022-09-01 05:34] LABS: TOTAL PROTEIN 7.4 GM/DL (6.4-8.2)
[2022-09-01 05:36] LABS: BILIRUBIN,TOTAL 0.6 MG/DL (0.1-1.0)
[2022-09-01 05:37] LABS: CREATININE SERUM 0.89 MG/DL (0.60-1.30)
[2022-09-01 05:40] LABS: MAGNESIUM 2.1 MG/DL (1.6-2.4)
[2022-09-01] MEDS: POTASSIUM CL 10MEQ/50ML IVPB 50 ML IV SCH (05:41)
[2022-09-01] MEDS: KCL 20 MEQ TAB (K-DUR) PO SCH (05:41)
[2022-09-01] MEDS: MAGNESIUM 1 GM/100 ML IVPB 100 ML IV SCH (05:41)
[2022-09-01] MEDS: THIAMINE 100 MG (VITAMIN B-1) TAB PO SCH (06:26)
[2022-09-01] MEDS: PANTOPRAZOLE 40 MG (PROTONIX) VIAL IV SCH (10:14)
[2022-09-01] MEDS: meTOprolol TARTRATE 25 MG (LOPRESSOR) TABLET PO SCH ×2 (10:32→20:17)
[2022-09-01] MEDS: PANTOPRAZOLE 40 MG (PROTONIX) TAB PO SCH (10:33)
[2022-09-01] MEDS: FOLIC ACID 1 MG TAB PO SCH (10:33)
--- NOTE | 2022-09-01 11:30 | Progress Note - Hospitalist ---
Subjective HPI/CC On Admission Date Seen by Provider: Sep 01, 2022 Asif Preciado is a 21 year old male who presented with abdominal pain. The pain is diffuse but more sharp in the epigastric region. He has also had nausea and vomiting. He denies fevers and chills. He drinks most days. He reports having about 10 drinks yesterday. He denies any history of alcohol withdrawal. He has no history of pancreatitis. Subjective/Events-last exam Pt reports persistent abd pain. (day to day reports persistent pain but when asked to look back does acknowledging that it's improving) Controlled on orals but needing about every 4 hours. Not really worse with eating but still not eating much. Objective Exam Vital Signs Vital Signs Date Time Temp Pulse Resp B/P (MAP) Pulse Ox O2 Delivery O2 Flow Rate FiO2 09/01/22 11:15 36.6 86 18 137/79 (98) 97 Room Air 08/31/22 19:35 0.00 Capillary Refill : Less Than 3 Seconds General Appearance: No Apparent Distress, Thin Respiratory: Lungs Clear Cardiovascular: Regular Rate, Rhythm, No Murmur Gastrointestinal: Normal Bowel Sounds, Non Tender, Soft; No Distended Neurologic/Psychiatric: Alert, Oriented x3 Results/Procedures Lab Laboratory Tests 09/01/22 05:06 Patient resulted labs reviewed. Imaging: Reviewed Imaging Report Assessment/Plan Assessment and Plan Assess & Plan/Chief Complaint Acute alcoholic pancreatitis Alcohol dependence LFTs elevated Sinus tachycardia Constipation Continue Metoprolol, HR much improved Cardiology consulted, appreciate recs Continue Pain regimen- attempt control with only orals Add pancreatic enzymes Continue current diet Labs stable CT consistent with severe pancreatitis, free fluid, no drainable fluid collection CIWA protocol- no ativan needed since 08/29 Bowel regimen Critical Care Critically Ill Patient FLORIDALMA MOSQUERA MD Sep 01, 2022 11:30
--- NOTE | 2022-09-01 12:03 | Progress Note - Cardiology ---
Cardiology SOAP Progress Note Subjective: No cp or palp or syncope or shortness of breath No n/v/d No focal weakness Gen weakness present Objective: I&O/Vital Signs 09/01/22 09/01/22 09/01/22 09/01/22 00:09 04:00 07:57 08:00 Temp 36.3 36.1 Pulse 99 101 83 Resp 16 16 18 B/P (MAP) 145/73 (97) 124/77 (93) 145/79 (101) Pulse Ox 95 96 97 O2 Delivery Room Air Room Air Room Air Room Air 09/01/22 11:15 Temp 36.6 Pulse 86 Resp 18 B/P (MAP) 137/79 (98) Pulse Ox 97 O2 Delivery Room Air 08/31/22 23:59 Intake Total 1420 ml Balance 1420 ml Weight (Pounds): 120 Weight (Ounces): 12.0 Weight (Calculated Kilograms): 54.395707 Constitutional: AAO x 3, well-developed, well-nourished Respiratory: No accessory muscle use, No respiratory distress; chest expansion is symmetric, chest is bilaterally symmetric, other (diminished bases bilat; poor inspiratory effort) Cardiovascular: tachycardia, S1 and S2 Gastrointestional: No tender; soft; No guarding; audible bowel sounds Extremities: no lower extremity edema bilateral Neurologic/Psychiatric: other (moves all limbs) Skin: No rash on exposed areas, No ulcerations on exposed areas Results/Procedures: Labs Laboratory Tests 09/01/22 05:06: White Blood Count 13.8H, Red Blood Count 5.06, Hemoglobin 15.1, Hematocrit 44, Mean Corpuscular Volume 87, Mean Corpuscular Hemoglobin 30, Mean Corpuscular Hemoglobin Concent 34, Red Cell Distribution Width 12.0, Platelet Count 347, Mean Platelet Volume 9.8, Immature Granulocyte % (Auto) 2, Neutrophils (%) (Auto) 76H, Lymphocytes (%) (Auto) 12, Monocytes (%) (Auto) 8, Eosinophils (%) (Auto) 1, Basophils (%) (Auto) 1, Neutrophils # (Auto) 10.5H, Lymphocytes # (Auto) 1.7, Monocytes # (Auto) 1.1H, Eosinophils # (Auto) 0.2, Basophils # (Auto) 0.1, Immature Granulocyte # (Auto) 0.3H, Sodium Level 137, Potassium Level 4.1, Chloride Level 100, Carbon Dioxide Level 23, Anion Gap 14, Blood Urea Nitrogen 8, Creatinine 0.89, Estimat Glomerular Filtration Rate 125, BUN/Creatinine Ratio 9, Glucose Level 85, Calcium Level 9.6, Corrected Calcium 9.8, Magnesium Level 2.1, Total Bilirubin 0.6, Aspartate Amino Transf (AST/SGOT) 30, Alanine Aminotransferase (ALT/SGPT) 34, Alkaline Phosphatase 102, Total Protein 7.4, Albumin 3.7 Microbiology 08/27/22 MRSA Screen - Final, Complete MRSA not isolated 08/27/22 Blood Culture - Preliminary, Resulted No growth Laboratory Tests 08/31/22 04:43 09/01/22 05:06 A/P: Assessment: Sinus tachycardia, improved - likely d/t alcohol/drug withdrawal - Echocardiogram of 08-27-22 showed LVEF 55-60%. Mod L pl effusion. Pleural effusions - improved ETOH abuse - 1 pint of Vodka/day - cessation advised Hypokalemia - resolved Denies any Rx/street drug usage - tested positive for benzo's and opiates this admission Acute pancreatitis - management per medical services Anxiety/Depression Plan: * Continue beta-eddie * Monitor lab * Advised off alcohol and drugs * Advised increased ambulation SHERRI GONGORA MD FACP [facility] Sep 01, 2022 12:03
[2022-09-01] MEDS: LIPASE/AMYLASE/PROTEASE (PANCRELIPASE) 5,000 UNITS CAP PO SCH ×2 (12:45→16:47)
[2022-09-01] MEDS: ENOXAPARIN 40 MG/0.4 ML (LOVENOX) SYR SC SCH (20:17)
[2022-09-02 00:18] VITALS: BP 152/84
[2022-09-02] MEDS: HYDROcodone/APAP 5 MG/325 MG (LORTAB) TAB PO PRN ×3 (00:47→10:40)
[2022-09-02 04:00] VITALS: BP 148/80
[2022-09-02] MEDS: THIAMINE 100 MG (VITAMIN B-1) TAB PO SCH (06:30)
[2022-09-02] MEDS: PANTOPRAZOLE 40 MG (PROTONIX) TAB PO SCH (07:55)
[2022-09-02] MEDS: LIPASE/AMYLASE/PROTEASE (PANCRELIPASE) 5,000 UNITS CAP PO SCH (07:55)
[2022-09-02] MEDS: meTOprolol TARTRATE 25 MG (LOPRESSOR) TABLET PO SCH (07:55)
[2022-09-02] MEDS: FOLIC ACID 1 MG TAB PO SCH (07:55)
[2022-09-02 08:02] VITALS: BP 142/76
[2022-09-02] MEDS ORDERED: TRM50T PO (10:45)
[2022-09-02] MEDS ORDERED: MTP25TSR PO (10:45)
--- NOTE | 2022-09-02 10:56 | Progress Note - Cardiology ---
Cardiology SOAP Progress Note Objective: I&O/Vital Signs Weight (Pounds): 120 Weight (Ounces): 12.0 Weight (Calculated Kilograms): 54.461558 Constitutional: AAO x 3, well-developed, well-nourished Respiratory: No accessory muscle use, No respiratory distress; chest expansion is symmetric, chest is bilaterally symmetric, other (diminished bases bilat; poor inspiratory effort) Cardiovascular: tachycardia, S1 and S2 Gastrointestional: No tender; soft; No guarding; audible bowel sounds Extremities: no lower extremity edema bilateral Neurologic/Psychiatric: other (moves all limbs) Skin: No rash on exposed areas, No ulcerations on exposed areas Results/Procedures: Labs Microbiology 08/27/22 MRSA Screen - Final, Complete MRSA not isolated 08/27/22 Blood Culture - Final, Complete No growth A/P: Assessment: Sinus tachycardia, improved - likely d/t alcohol/drug withdrawal - Echocardiogram of 08-27-22 showed LVEF 55-60%. Mod L pl effusion. Pleural effusions - improved ETOH abuse - 1 pint of Vodka/day - cessation advised Hypokalemia - resolved Denies any Rx/street drug usage - tested positive for benzo's and opiates this admission Acute pancreatitis - management per medical services Anxiety/Depression Plan: * Continue beta-eddie * Monitor lab * Advised off alcohol and drugs * Advised increased ambulation BILLY COYNE Sep 02, 2022 10:55
--- NOTE | 2022-09-02 15:51 | Discharge Summary ---
Discharge Summary Hospital Course Problems/Dx: (1) Acute pancreatitis Status: Acute Qualifiers: Qualified Codes: K85.20 - Alcohol induced acute pancreatitis without necrosis or infection (2) Alcohol dependence Status: Acute Qualifiers: Qualified Codes: F10.29 - Alcohol dependence with unspecified alcohol- induced disorder (3) Elevated LFTs Status: Resolved (4) Sinus tachycardia Status: Resolved Hospital Course Date of Admission: August 24, 2022 at 01:40 Admission Diagnosis : Acute alcoholic pancreatitis [facility] [place] Date of Discharge: 09/02/22 Discharge Diagnosis: Acute alcoholic pancreatitis Hospital Course: Asif Preciado is a 21 year old male who presented with abdominal pain and was admitted with acute alcoholic pancreatitis. He was treated with IV fluids, bowel rest, and pain medications. He had persistent sinus tachycardia despite adequate fluid resuscitation. He was started on Metoprolol and his tachycardia improved. His pain persisted but improved. He was given a small supply of Tramadol. He was encouraged to discontinue alcohol use. He seemed motivated to quit. He needs to establish with a primary care doctor and was referred to [facility]. He was discharged home in stable condition. Labs and Pending Lab Test: Microbiology 08/27/22 MRSA Screen - Final, Complete MRSA not isolated 08/27/22 Blood Culture - Preliminary, Resulted No growth Home Meds Active Tramadol HCl 50 Mg Tablet 25 Mg PO Q6H PRN 7 Days Metoprolol Succinate 25 Mg Tab.er.24h 25 Mg PO DAILY 30 Days Assessment/Pt Instructions See instructions Discharge Planning: >30 minutes discharge planning Discharge Instructions Discharge Diet: No Restrictions Activity as Tolerated: Yes Discharge Physical Examination Vital Signs Vital Signs Date Time Temp Pulse Resp B/P (MAP) Pulse Ox O2 Delivery O2 Flow Rate FiO2 09/02/22 11:38 09/02/22 08:02 36.8 79 20 97 Room Air 09/02/22 04:00 0.00 0.00 09/01/22 22:27 21 General Appearance: No Apparent Distress, Thin Respiratory: Lungs Clear, No Respiratory Distress Cardiovascular: Regular Rate, Rhythm, No Murmur Gastrointestinal: Normal Bowel Sounds, Soft Extremity: Normal Inspection, No Pedal Edema Skin: Normal Color, Warm/Dry Neurologic/Psychiatric: Alert, Oriented x3, No Motor/Sensory Deficits Allergies: Coded Allergies: NKANo Known Allergies (Unverified Allergy, Mild, 07/13/09) Copy Copies To 1: [facility] Discharge Summary Date of Admission August 24, 2022 at 01:40 Date of Discharge Sep 02, 2022 at 11:38 Discharge Date: Sep 02, 2022 Discharge Time: 11:38 Admission Diagnosis Acute pancreatitis Discharge Diagnosis Acute alcoholic pancreatitis Alcohol dependence LFTs elevated Sinus tachycardia (1) Acute pancreatitis Status: Acute Qualifiers: Qualified Codes: K85.20 - Alcohol induced acute pancreatitis without necrosis or infection (2) Alcohol dependence Status: Acute Qualifiers: Qualified Codes: F10.29 - Alcohol dependence with unspecified alcohol- induced disorder (3) Elevated LFTs Status: Resolved (4) Sinus tachycardia Status: Resolved ARACELIS GHOSH MD Sep 02, 2022 15:51
== END 2022-09-02 11:38 | disposition home or self-care (01) | DRG 439 ==
LOC: EDUNIT# 23:45 → ER 23:47 → ICU 08-24 01:40 → OBSVTOIN 08-24 01:40 → 4TH 08-31 10:59
PROVIDERS: ADMIT Internal Medicine; ATTEND Internal Medicine
DX: K85.20 Alcohol induced acute pancreatitis without necrosis or infection (principal); F10.239 Alcohol dependence with withdrawal, unspecified; J90 Pleural effusion, not elsewhere classified; F11.93 Opioid use, unspecified with withdrawal; F19.939 Other psychoactive substance use, unspecified with withdrawal, unspecified; F17.290 Nicotine dependence, other tobacco product, uncomplicated; H54.7 Unspecified visual loss; E86.0 Dehydration; R00.0 Tachycardia, unspecified; F41.9 Anxiety disorder, unspecified; F32.A Depression, unspecified; R09.02 Hypoxemia; E87.6 Hypokalemia; Y90.3 Blood alcohol level of 60-79 mg/100 ml; K59.00 Constipation, unspecified
CPT/HCPCS: 36415; 71045; 74018; 74150; 76604; 80053; 80306; 80320; 81000; 82947; 83605; 83690; 83735; 84100; 84132; 85007; 85025; 85027; 85610; 85730; 86141; 87040; 87081; 93306; 94640; 94664; 94760; 96361; 96374; 96375

== ENCOUNTER 2022-09-14 13:28 | Emergency (ER) | payer SELFPAY ==
[~2022-09-14] VITALS: Ht 182 cm; Wt 63.5 kg
[~2022-09-14 13:28] MED LIST changes: +MTP25TSR PO; +TRM50T PO
[2022-09-14 13:56] LABS: BASOPHILS # (AUTO) 0.1 10^3/uL (0.0-0.1); BASOPHILS % (AUTO) 1 % (0-10); EOSINOPHILS # (AUTO) 0.1 10^3/uL (0.0-0.3); EOSINOPHILS % (AUTO) 1 % (0-10); HEMATOCRIT 45 % (40-54); HEMOGLOBIN 15.4 g/dL (13.3-17.7); LYMPHOCYTES # (AUTO) 1.4 10^3/uL (1.0-4.0); LYMPHOCYTES % (AUTO) 17 % (12-44); MEAN CORPUSCULAR HEMOGLOBIN 30 pg (25-34); MEAN CORPUSCULAR HGB CONC 34 g/dL (32-36); MEAN CORPUSCULAR VOLUME 88 fL (80-99); MONOCYTES # (AUTO) 0.5 10^3/uL (0.0-1.0); MONOCYTES % (AUTO) 6 % (0-12); NEUTROPHILS # (AUTO) 6.3 10^3/uL (1.8-7.8); NEUTROPHILS % (AUTO) 76 % (42-75); PLATELET COUNT 326 10^3/uL (130-400); WHITE BLOOD COUNT 8.3 10^3/uL (4.3-11.0)
[2022-09-14 14:02] LABS: CLARITY,URINE CLEAR; COLOR,URINE YELLOW; GLUCOSE, URINE (UA) NEGATIVE (NEGATIVE); KETONES,URINE 2+ (NEGATIVE); LEUKOCYTE ESTERASE ,URINE NEGATIVE (NEGATIVE); NITRITE,URINE NEGATIVE (NEGATIVE); PH,URINE 6.5 (5-9); PROTEIN,URINE TRACE (NEGATIVE)
[2022-09-14 14:08] LABS: ALBUMIN 4.1 GM/DL (3.2-4.5); CHLORIDE 106 MMOL/L (98-107); POTASSIUM 3.7 MMOL/L (3.6-5.0); SODIUM 139 MMOL/L (135-145)
[2022-09-14 14:09] LABS: CALCIUM 9.7 MG/DL (8.5-10.1)
[2022-09-14 14:11] LABS: GLUCOSE 87 MG/DL (70-105); TOTAL PROTEIN 7.2 GM/DL (6.4-8.2)
[2022-09-14 14:12] LABS: BACTERIA,URINE NEGATIVE /HPF; BILIRUBIN,URINE 1+ (NEGATIVE); URINE OTHER FEW SPERM /HPF; WBC,URINE RARE /HPF
[2022-09-14 14:12] LABS: CARBON DIOXIDE 23 MMOL/L (21-32)
[2022-09-14] MEDS ORDERED: fentaNYL INJ 100 MCG/2 ML AMP IVP STA ×2 (14:12→15:02)
--- NOTE | 2022-09-14 14:12 | ED Abdominal Pain ---
General Chief Complaint: Abdominal/GI Problems Stated Complaint: AB PAIN Nursing Triage Note: Patient ambulatory to room 4 w c/o LUQ abdominal pain. Patient states he was here recently for pancreatitis and the pain feels the same. sharp continuous pain that sometimes radiates into the left shoulder. Pain started 2 days ago. hurts worse to lay supine. Source of Information: Patient, Old Records Exam Limitations: No Limitations (SHAYY PUTON APRN) History of Present Illness Date Seen by Provider: Sep 14, 2022 Time Seen by Provider: 13:54 Initial Comments This is a 21-year-old male with a history of pancreatitis who presented to the ER with complaints of mid and left upper quadrant abdominal pain. States that he was admitted to the hospital here on August 24 for pancreatitis. He was feeling much better and had a follow-up with his PCP yesterday. Had some mild pain but was tolerable. Initially after discharge was given tramadol which he was taking twice daily and did help some. After he ran out of tramadol he started taking ibuprofen which she reports really did not help at all. This morning he woke in excruciating pain. Feels like his pancreatitis is starting to return. States that his pancreatitis is from alcohol but he has not had any alcohol. Denies any illicit drug use. Denies fever, chills, nausea, vomiting, shortness of breath. States that he is still eating and drinking well. (SHAYY UPTON APRN) Allergies and Home Medications Allergies Coded Allergies: NKANo Known Allergies (Unverified Allergy, Mild, 07/13/09) Patient Home Medication List Home Medication List Reviewed: Yes (SHAYY UPTON APRN) Hydrocodone/Acetaminophen (Hydrocodone-Acetamin 5-325 mg) 5 Mg-325 Mg Tablet, 1 TAB PO Q6H PRN for PAIN-MODERATE (5-7) Prescribed by: SHAYY UPTON on 09/14/22 1451 Metoprolol Succinate (Metoprolol Succinate) 25 Mg Tab.er.24h, 25 MG PO DAILY Prescribed by: ARACELIS GHOSH on 09/02/22 1045 Tramadol HCl (Tramadol HCl) 50 Mg Tablet, 25 MG PO Q6H PRN for ABDOMINAL PAIN Prescribed by: ARACELIS GHOSH on 09/02/22 1046 Review of Systems Review of Systems Constitutional: see HPI (SHAYY UPTON APRN) Past Kpwbvgp-Ksvrsb-Dmnxyh Hx Patient Social History Use of E-Cig and/or Vaping dev: Yes E-Cig or Vaping type used: Nicotine Substance use?: No Alcohol Use?: No (SHAYY UPTON APRN) Immunizations Up To Date First/Initial COVID19 Vaccinat: x2 (SHAYY UPTON APRN) Seasonal Allergies Seasonal Allergies: No (SHAYY UPTON APRN) Past Medical History Surgery/Hospitalization HX: denies Surgeries: No Respiratory: No Cardiac: No Neurological: No Gastrointestinal: No Musculoskeletal: No Endocrine: No Cancer: No Psychosocial: No Integumentary: No (SHAYY UPTON APRN) Family Medical History No Pertinent Family Hx (SHAYY UPTON APRN) Physical Exam Vital Signs Vital Signs - First Documented 09/14/22 13:45 Temp 36.0 Pulse 110 Resp 20 B/P (MAP) 127/60 (82) Pulse Ox 98 O2 Delivery Room Air (CASSIE SWEENEY MD) Vital Signs Capillary Refill : Less Than 3 Seconds (SHAYY UPTON APRN) Height/Weight/BMI Height: 5'7.00" Weight: 120lbs. 12.0oz. 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-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 as tested, no motor/sensory deficits, alert, normal mood/affect, oriented x 3 Skin: normal color, warm/dry (SHAYY UPTON APRN) Progress/Results/Core Measures Results/Orders Lab Results Laboratory Tests Test 09/14/22 13:50 09/14/22 13:57 Range/Units White Blood Count 8.3 4.3-11.0 10^3/uL Red Blood Count 5.18 4.30-5.52 10^6/uL Hemoglobin 15.4 13.3-17.7 g/dL Hematocrit 45 40-54 % Mean Corpuscular Volume 88 80-99 fL Mean Corpuscular Hemoglobin 30 25-34 pg Mean Corpuscular Hemoglobin Concent 34 32-36 g/dL Red Cell Distribution Width 12.4 10.0-14.5 % Platelet Count 326 130-400 10^3/uL Mean Platelet Volume 10.0 9.0-12.2 fL Immature Granulocyte % (Auto) 0 % Neutrophils (%) (Auto) 76 H 42-75 % Lymphocytes (%) (Auto) 17 12-44 % Monocytes (%) (Auto) 6 0-12 % Eosinophils (%) (Auto) 1 0-10 % Basophils (%) (Auto) 1 0-10 % Neutrophils # (Auto) 6.3 1.8-7.8 10^3/uL Lymphocytes # (Auto) 1.4 1.0-4.0 10^3/uL Monocytes # (Auto) 0.5 0.0-1.0 10^3/uL Eosinophils # (Auto) 0.1 0.0-0.3 10^3/uL Basophils # (Auto) 0.1 0.0-0.1 10^3/uL Immature Granulocyte # (Auto) 0.0 0.0-0.1 10^3/uL Sodium Level 139 135-145 MMOL/L Potassium Level 3.7 3.6-5.0 MMOL/L Chloride Level 106 98-107 MMOL/L Carbon Dioxide Level 23 21-32 MMOL/L Anion Gap 10 5-14 MMOL/L Blood Urea Nitrogen 6 L 7-18 MG/DL Creatinine 0.88 0.60-1.30 MG/DL Estimat Glomerular Filtration Rate 125 BUN/Creatinine Ratio 7 Glucose Level 87 70-105 MG/DL Calcium Level 9.7 8.5-10.1 MG/DL Corrected Calcium 9.6 8.5-10.1 MG/DL Total Bilirubin 0.6 0.1-1.0 MG/DL Aspartate Amino Transf (AST/SGOT) 23 5-34 U/L Alanine Aminotransferase (ALT/SGPT) 27 0-55 U/L Alkaline Phosphatase 74 40-136 U/L Total Protein 7.2 6.4-8.2 GM/DL Albumin 4.1 3.2-4.5 GM/DL Lipase 392 H 8-78 U/L Serum Alcohol < 10 <10 MG/DL Urine Color YELLOW Urine Clarity CLEAR Urine pH 6.5 5-9 Urine Specific [place] 1.025 H 1.016-1.022 Urine Protein TRACE H NEGATIVE Urine Glucose (UA) NEGATIVE NEGATIVE Urine Ketones 2+ H NEGATIVE Urine Nitrite NEGATIVE NEGATIVE Urine Bilirubin 1+ H NEGATIVE Urine Urobilinogen 1.0 < = 1.0 MG/DL Urine Leukocyte Esterase NEGATIVE NEGATIVE Urine RBC (Auto) NEGATIVE NEGATIVE Urine RBC NONE /HPF Urine WBC RARE /HPF Urine Crystals NONE /LPF Urine Bacteria NEGATIVE /HPF Urine Casts NONE /LPF Urine Mucus SMALL H /LPF Urine Other FEW SPERM H /HPF Urine Culture Indicated NO (CASSIE SWEENEY MD) Medications Given in ED Current Medications Medications Dose Ordered Sig/Maite Route Start Time Stop Time Status Last Admin Dose Admin Lactated Ringer's 1,000 ml @ 0 mls/hr Q0M ONCE IV 09/14/22 14:15 09/14/22 14:16 DC 09/14/22 14:19 1,000 MLS/HR Lactated Ringer's 1,000 ml @ 0 mls/hr Q0M ONCE IV 09/14/22 15:15 09/14/22 15:16 DC 09/14/22 15:25 1,000 MLS/HR (CASSIE SWEENEY MD) Vital Signs/I&O 09/14/22 09/14/22 13:45 16:00 Temp 36.0 Pulse 110 103 Resp 20 18 B/P (MAP) 127/60 (82) 140/87 Pulse Ox 98 100 O2 Delivery Room Air Room Air (CASSIE SWEENEY MD) Blood Pressure Mean: 82 Progress Progress Note : Progress Note Patient examined in no acute distress. He is sitting up talking, no guarding or grimacing. His vital signs are stable. We will go ahead and obtain basic blood work including a CBC, CMP, lipase to evaluate for any evidence of pancreatitis. We will give him fentanyl 50 mcg IV push x1 now for pain. As well as a liter of LR. Labs reviewed CBC is normal, CMP normal, lipase slightly elevated at 392. Had good control of pain with first dose of fentanyl [address] mcg. Discuss[address] case [address]. Lovett with general surgery, given he has no WBC elevation and his exam is unremarkable recommends giving 2 L of fluid in the emergency department, sending home on clear liquid diet. He does request patient receive a gallbladder ultra sound to help rule out cholelithiasis, and he is scheduled to f/u in clinic with Dr. Lovett Friday at 1000. Treatment plan reviewed with patient and he is agreeable with plan. Requested to PCP Yann Mtz to have gallbladder ultrasound scheduled at [facility] as he is self-pay. Patient will call Friday to inquire about date/time of scheduling. (SHAYY UPTON MARKETING REPORTING ANALYST) Departure Communication (Admissions) Time/Spoke to Consulting Phy: 14:31 Dr. Lovett, general surgeon (SHAYY UPTON MARKETING REPORTING ANALYST) Impression Primary Impression: Chronic pancreatitis Disposition: HOME, SELF-CARE Condition: Improved Departure-Patient Inst. Decision time for Depature: 14:45 (SHAYY UPTON MARKETING REPORTING ANALYST) Referrals: [facility] (PCP/Family) Primary Care Physician Patient Instructions: Chronic Pancreatitis Add. Discharge Instructions: Plan: 1. Follow-up with Dr. Lovett on September 20 at 10 AM. Make sure you have your president financial institution packet filled out, turned in prior to appointment. 2. Request to your PCP Yann salinas is sent for gallbladder ultrasound through [facility]. If you do not hear any contact by Friday please call to inquire about scheduling your gallbladder ultrasound. 3. Take hydrocodone 1 tab every 6 hours as needed for severe pain. 4. Clear liquid diet for the next couple days until pain is subsided. And he can slowly advance diet. 5. Make sure you are drinking plenty of fluids to stay hydrated. No alcohol. 6. Return to the ER if you have any new, concerning, worsening symptoms. All discharge instructions reviewed with patient and/or family. Voiced understanding. Scripts Hydrocodone/Acetaminophen (Hydrocodone-Acetamin 5-325 mg) 5 Mg-325 Mg Tablet 1 TAB PO Q6H PRN for PAIN-MODERATE (5-7) for 7 Days, #14 TAB 0 Refills Prov: SHAYY UPTON APRN 09/14/22 ATTENDING PHYSICIAN NOTE: I was physically present as attending physician in the emergency department during the care of this patient, but I was not directly involved in the decision making or delivery of care for this patient. (CASSIE SWEENEY MD) Copy Copies To 1: VIKASH LOVETT DO Copies To 2: [facility]/SHAYY MCMULLEN APRN Sep 14, 2022 14:12 CASSIE SWEENEY MD Sep 14, 2022 18:42
[2022-09-14 14:13] LABS: BILIRUBIN,TOTAL 0.6 MG/DL (0.1-1.0)
[2022-09-14 14:14] LABS: ALKALINE PHOSPHATASE 74 U/L (40-136); CREATININE SERUM 0.88 MG/DL (0.60-1.30); GFR ESTIMATED 125
[2022-09-14 14:15] LABS: BUN/CREATININE RATIO 7
[2022-09-14] MEDS ORDERED: LACTATED RINGERS 1,000 ML IV ONE ×2 (14:15→15:15)
[2022-09-14 14:17] LABS: ALANINE AMINOTRANSFERASE 27 U/L (0-55)
[2022-09-14 14:18] LABS: LIPASE 392 U/L (8-78)
[2022-09-14] MEDS ORDERED: ACHD5005 PO (14:49)
[2022-09-14 16:00] VITALS: BP 140/87
== END 2022-09-14 16:00 | disposition home or self-care (01) ==
LOC: EDUNIT# 13:28 → ER 13:30
DX: K86.1 Other chronic pancreatitis (principal); F17.290 Nicotine dependence, other tobacco product, uncomplicated; Z28.311 Partially vaccinated for COVID-19
CPT/HCPCS: 80053; 81000; 83690; 85025; 99284; G0480; 36415; 80320

== ENCOUNTER 2022-09-14 19:26 | Emergency (ER) | payer SELFPAY ==
[~2022-09-14 19:26] MED LIST changes: +ACHD5005 PO
--- NOTE | 2022-09-14 19:52 | ED Abdominal Pain ---
General Chief Complaint: Abdominal/GI Problems Stated Complaint: AB PAIN Source of Information: Patient Exam Limitations: No Limitations History of Present Illness Date Seen by Provider: Sep 14, 2022 Time Seen by Provider: 19:50 Initial Comments This is a 21-year-old male with a history of chronic pancreatitis who presented to the ER with complaints of mid and left upper quadrant abdominal pain. Admitted here on August 24 for acute pancreatitis and discharged on September 02. He was feeling much better after discharge and had a follow-up with his PCP yesterday, doing well at that visit. Today he developed mild abdominal pain and concerned he was developing pancreatitis again. He was seen in this ER a few hours ago by myself for abdominal pain due to pancreatitis. Given 2 liters of fluids and pain controlled at time of discharge. Surgical follow up with Dr. Ramos with general surgery and GB US in place for this week. States he went home and tried to eat some jello. Shortly after eating jello he had severe sharp pain in his upper abdomen that is "way worse than before". Was prescribed Hydroc odone 5/325mg PO at time of discharge from prior visit. He continues to deny any illicit drug use. Denies fever, chills, nausea, vomiting, shortness of breath. Allergies and Home Medications Allergies Coded Allergies: NKANo Known Allergies (Unverified Allergy, Mild, 07/13/09) Patient Home Medication List Home Medication List Reviewed: Yes Hydrocodone/Acetaminophen (Hydrocodone-Acetamin 5-325 mg) 5 Mg-325 Mg Tablet, 1 TAB PO Q6H PRN for PAIN-MODERATE (5-7) Prescribed by: SHAYY UPTON on 09/14/22 1451 Metoprolol Succinate (Metoprolol Succinate) 25 Mg Tab.er.24h, 25 MG PO DAILY Prescribed by: ARACELIS GHOSH on 09/02/22 1045 Tramadol HCl (Tramadol HCl) 50 Mg Tablet, 25 MG PO Q6H PRN for ABDOMINAL PAIN Prescribed by: ARACELIS GHOSH on 09/02/22 1046 Review of Systems Review of Systems Constitutional: see HPI Past Peiujnl-Zpedhs-Bgjuph Hx Patient Social History Tobacco Use?: Yes E-Cig or Vaping type used: Nicotine Additional substance use comme: DENIES Immunizations Up To Date First/Initial COVID19 Vaccinat: x2 Second COVID19 Vaccination Watson: x2 Third COVID19 Vaccination Date: x2 Seasonal Allergies Seasonal Allergies: No Past Medical History Surgery/Hospitalization HX: denies Surgeries: No Respiratory: No Cardiac: No Neurological: No Gastrointestinal: No Musculoskeletal: No Endocrine: No Cancer: No Psychosocial: No Integumentary: No Family Medical History No Pertinent Family Hx Physical Exam Vital Signs Vital Signs - First Documented 09/14/22 19:32 Temp 36.0 Pulse 104 Resp 20 B/P (MAP) 139/89 (106) Pulse Ox 96 O2 Delivery Room Air Capillary Refill : Height/Weight/BMI Height: 5'7.00" Weight: 120lbs. 12.0oz. 54.759794ku; 19.00 BMI Method:Estimated General Appearance: WD/WN, no apparent distress HEENT: normal ENT inspection, pharynx normal Neck: full range of motion, normal inspection Respiratory: lungs clear, normal breath sounds, no respiratory distress, no accessory muscle use Cardiovascular: regular rate, rhythm, no murmur Gastrointestinal: normal bowel sounds, soft, tenderness (mid abdominal tenderness) Extremities: normal range of motion, non-tender Neurologic/Psychiatric: no motor/sensory deficits, alert, normal mood/affect, oriented x 3 Skin: normal color, warm/dry Progress/Results/Core Measures Results/Orders My Orders Orders - SHAYY UPTON APRN Ct Abdomen/Pelvis W (09/14/22 19:46) Ed Iv/Invasive Line Start (09/14/22 19:46) Fentanyl Inj (Sublimaze Injection) (09/14/22 20:00) Ns Iv 1000 Ml (Sodium Chloride 0.9%) (09/14/22 20:00) Iohexol Injection (Omnipaque 350 Mg/Ml 1 (09/14/22 20:00) Received Contrast (Hold Metformin- Contr (09/14/22 20:00) Ns (Ivpb) (Sodium Chloride 0.9% Ivpb Bag (09/14/22 20:00) Hydromorphone Injection (Dilaudid Inject (09/14/22 20:45) Meropenem (Merrem 1000 Mg) (09/14/22 21:00) Hydromorphone Injection (Dilaudid Inject (09/14/22 21:30) Ns Iv 1000 Ml (Sodium Chloride 0.9%) (09/14/22 21:30) Medications Given in ED Current Medications Medications Dose Ordered Sig/Maite Route Start Time Stop Time Status Last Admin Dose Admin Fentanyl Citrate 50 mcg ONCE ONCE IVP 09/14/22 20:00 09/14/22 20:01 DC 09/14/22 19:56 50 MCG Hydromorphone HCl 1 mg ONCE ONCE IV 09/14/22 20:45 09/14/22 20:46 DC 09/14/22 20:39 1 MG Hydromorphone HCl 2 mg ONCE ONCE IV 09/14/22 21:30 09/14/22 21:31 DC 09/14/22 21:32 2 MG Iohexol 100 ml ONCE ONCE IV 09/14/22 20:00 09/14/22 20:01 DC 09/14/22 20:04 73 ML Meropenem 1000 mg/ Sodium Chloride 100 ml @ 200 mls/hr ONCE ONCE IV 09/14/22 21:00 09/14/22 21:29 DC 09/14/22 21:32 200 MLS/HR Sodium Chloride 100 ml ONCE ONCE IV 09/14/22 20:00 09/14/22 20:01 DC 09/14/22 20:05 80 ML Sodium Chloride 1,000 ml @ 999 mls/hr Q1H ONCE IV 09/14/22 20:00 09/14/22 21:00 DC 09/14/22 19:54 999 MLS/HR Vital Signs/I&O 09/14/22 19:32 Temp 36.0 Pulse 104 Resp 20 B/P (MAP) 139/89 (106) Pulse Ox 96 O2 Delivery Room Air Progress Progress Note : Progress Note Patient examined no acute distress, does appear to be in more pain than his previous visit a couple hours ago. We will go ahead and obtain CT imaging due to worsening pain. Fentanyl 50 mcg IV push x1 and normal saline 1 L bag. Not repeat labs as he just had labs drawn a couple hours ago at his prior visit. His CBC, CMP are both unremarkable. At time of discharge his vitals were stable and his pain was controlled. CT report shows development of a sizable pseudocyst along the anterior pancreatic body with features concerning for transition to necrotizing pancreatitis as well as a developing splenic vein thrombosis, results reviewed with Dr. Ramos with general surgery and he recommended transfer to higher level of care. States patient would likely require drainage of the pseudocyst and would require GI specialty. Reviewed findings with patient and need for transfer to higher level of care as we do not have GI nor interventional radiology services available at this facility. He is agreeable with plan to transfer. Orders placed for maintenance fluid of normal saline at 50 mils per hour, meropenem 1 g IV given. Patient has received additional pain medication Dila udid 1IV mg once and an additional Dilaudid 2 mg IV push. Pain is now controlled at this time. 2055: [facility] transfer line called at this time to inquire about bed capacity for potential transfer, declined due to capacity. 2057: Called [facility] to inquire about transfer, no contact made, pending return call. 2056: Called [facility] and reviewed case with Dr. Andino for potential transfer, states that they do not have the services available to manage patient, recommended transfer to [facility] or . 2128: Call made to [facility] for potential transfer, pending return call. 2149: [facility] return call, case reviewed with Dr. Trejo accepted transfer pending bed capacity. Will return call with bed assignment. 2224: [facility] called, Dr. Trejo graciously accepted transfer to [facility] in [facility]. 2229: Report given to Dr. Raymond, will monitor patient until EMS transfer crew arrives. Diagnostic Imaging Diagonstic Imaging: CT Comments [facility], [place] NAME: [facility] REC#: [id number] PT STATUS: REG ER : 2000 PHYSICIAN: SHAYY UPTON CUSTOM FRAMING SPECIALIST ADMIT DATE: 09/14/22/ER Draft Date of Exam:09/14/22 CT ABDOMEN/PELVIS W PROCEDURE: CT abdomen and pelvis with contrast. TECHNIQUE: Multiple contiguous axial images were obtained through the abdomen and pelvis after administration of intravenous contrast. Auto Exposure Controls were utilized during the CT exam to meet ALARA standards for radiation dose reduction. All CT scans use one or more of the following dose optimizing techniques: automated exposure control, MA and/or KvP adjustment based on patient size and exam type or iterative reconstruction. INDICATION: 21-year-old male, continued abdominal pain. CORRELATION STUDY: CT abdomen and pelvis 08/25/2022. FINDINGS: LOWER THORAX: The previously noted bilateral pleural effusions have resolved. No basilar infiltrate. LIVER: Unremarkable. GALLBLADDER: Mildly distended. Common bile duct visualized but within normal limits. SPLEEN: Unremarkable. PANCREAS: Continued peripancreatic inflammatory change. However, there has been development of an encapsulated pseudocyst formation along the anterior body which measures approximately 10.9 x 4.4 x 5.6 cm. Some distortion of the pancreatic tissue with concern for some areas of necrosis. Fluid extending along the paracolic gutters also present. Pelvic fluid is also noted. Splenic vein appears somewhat attenuated and not well visualized, may be potentially thrombosed or at least compressed. Upper abdominal varicosities, particularly gastric, are also present. The supra-mesenteric vein and portal vein are patent. Slight nodular enhancement within the pseudocyst formation. ADRENAL GLANDS: Unremarkable. KIDNEYS: Normal configuration. No calcification or obstruction. ABDOMINAL AORTA: Unremarkable, nonaneurysmal. GASTROINTESTINAL TRACT: Pseudocyst formation abuts the posterior gastric wall. No small bowel obstruction. Mild stool through the colon. Normal appendix. URINARY BLADDER: Unremarkable. REPRODUCTIVE: Prostate gland unremarkable. OSSEOUS STRUCTURES: No acute abnormality. OTHER: None. IMPRESSION: 1. Development of a rather sizable pseudocyst along the anterior pancreatic body along with features concerning for transition to necrotizing pancreatitis. 2. Fairly significant attenuation of the splenic vein with upper abdominal varicosities. Concerning for developing splenic vein thrombosis. Current spleen size within normal limits. 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 Trejo, at [facility] Transfer Time: 22:25 Transfer Facility: [facility] Method of Transfer: EMS ([facility]) Departure-Patient Inst. Referrals: [facility] (PCP/Family) Primary Care Physician Copy Copies To 1: [facility] SHAYY UPTON APRN Sep 14, 2022 19:52
[2022-09-14] MEDS ORDERED: IOHEXOL 350 MG/ML 100 ML (OMNIPAQUE 350) VIAL IV ONE (20:00)
[2022-09-14] MEDS ORDERED: fentaNYL INJ 100 MCG/2 ML AMP IVP ONE (20:00)
[2022-09-14] MEDS ORDERED: NS 100 ML (IVPB) BAG IV ONE (20:00)
[2022-09-14] MEDS ORDERED: NS IV 1000 ML 1,000 ML IV ONE (20:00)
[2022-09-14] MEDS ORDERED: HOLD METFORMIN - RECEIVED CONTRAST 20 ML VIAL IV SCH (20:00)
--- NOTE | 2022-09-14 20:32 | Diagnostic Imaging Report ---
PROCEDURE: CT abdomen and pelvis with contrast. TECHNIQUE: Multiple contiguous axial images were obtained through the abdomen and pelvis after administration of intravenous contrast. Auto Exposure Controls were utilized during the CT exam to meet ALARA standards for radiation dose reduction. All CT scans use one or more of the following dose optimizing techniques: automated exposure control, MA and/or KvP adjustment based on patient size and exam type or iterative reconstruction. INDICATION: 21-year-old male, continued abdominal pain. CORRELATION STUDY: CT abdomen and pelvis 08/25/2022. FINDINGS: LOWER THORAX: The previously noted bilateral pleural effusions have resolved. No basilar infiltrate. LIVER: Unremarkable. GALLBLADDER: Mildly distended. Common bile duct visualized but within normal limits. SPLEEN: Unremarkable. PANCREAS: Continued peripancreatic inflammatory change. However, there has been development of an encapsulated pseudocyst formation along the anterior body which measures approximately 10.9 x 4.4 x 5.6 cm. Some distortion of the pancreatic tissue with concern for some areas of necrosis. Fluid extending along the paracolic gutters also present. Pelvic fluid is also noted. Splenic vein appears somewhat attenuated and not well visualized, may be potentially thrombosed or at least compressed. Upper abdominal varicosities, particularly gastric, are also present. The supra-mesenteric vein and portal vein are patent. Slight nodular enhancement within the pseudocyst formation. ADRENAL GLANDS: Unremarkable. KIDNEYS: Normal configuration. No calcification or obstruction. ABDOMINAL AORTA: Unremarkable, nonaneurysmal. GASTROINTESTINAL TRACT: Pseudocyst formation abuts the posterior gastric wall. No small bowel obstruction. Mild stool through the colon. Normal appendix. URINARY BLADDER: Unremarkable. REPRODUCTIVE: Prostate gland unremarkable. OSSEOUS STRUCTURES: No acute abnormality. OTHER: None. IMPRESSION: 1. Development of a rather sizable pseudocyst along the anterior pancreatic body along with features concerning for transition to necrotizing pancreatitis. 2. Fairly significant attenuation of the splenic vein with upper abdominal varicosities. Concerning for developing splenic vein thrombosis. Current spleen size within normal limits. Dictated by: Dictated on workstation # [id number]
[2022-09-14] MEDS ORDERED: HYDROmorphone 2 MG/ML VIAL (DILAUDID) IV ONE ×3 (20:45→23:45)
[2022-09-14] MEDS ORDERED: MEROPENEM 1,000 MG in NS (IVPB) 100 ML IV ONE (21:00)
[2022-09-14] MEDS ORDERED: NS IV 1000 ML 1,000 ML IV SCH (21:30)
[2022-09-14 23:49] VITALS: BP 128/83
== END 2022-09-14 23:49 | disposition short-term general hospital (02) ==
LOC: EDUNIT# 19:26 → ER 19:28
DX: K85.90 Acute pancreatitis without necrosis or infection, unspecified (principal); K86.3 Pseudocyst of pancreas; I82.890 Acute embolism and thrombosis of other specified veins; F17.290 Nicotine dependence, other tobacco product, uncomplicated; Z28.310 Unvaccinated for COVID-19
CPT/HCPCS: 74177

== ENCOUNTER 2022-10-06 13:38 | Emergency (ER) | payer SELFPAY ==
[~2022-10-06] VITALS: Ht 182.9 cm; Wt 59.0 kg
[2022-10-06] MEDS ORDERED: NS IV 500 ML 500 ML IV STA (13:55)
--- NOTE | 2022-10-06 13:58 | ED Abdominal Pain ---
General Chief Complaint: Abdominal/GI Problems Stated Complaint: AB PAIN Nursing Triage Note: PT AMBULATE TO ROOM 07 WITHOUT DIFFICULTY WITH C/O ABD PAIN/NAUSEA X2 DAYS. PT REPORTS HX OF PANCREATITIS Source of Information: Patient Exam Limitations: No Limitations History of Present Illness Date Seen by Provider: Oct 06, 2022 Time Seen by Provider: 13:48 Initial Comments 22-year-old male presents to the emergency department today for diffuse abdominal pain that he states is worse in his bilateral upper abdomen. 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 He was transferred to [facility]. He states when he got there the pseudocyst was not drained in the treated him with pain medication, IV fluids and discharge him once he was tolerating foods. He denies any current fevers or chills. Current symptoms started about 2 days ago and described as a cramping sensation in his right upper abdomen and his left upper abdomen. It is worse with light touch of his abdomen or deep breathing. He feels as though he may have been constipated recently and took some laxatives a couple of days ago. He did have a small bowel movement this morning. No urinary symptoms. No testicular or penile symptoms. All other systems reviewed and negative except documented per HPI. Voice recognition software was used to help create this chart Allergies and Home Medications Allergies Coded Allergies: NKANo Known Allergies (Unverified Allergy, Mild, 07/13/09) Patient Home Medication List Home Medication List Reviewed: Yes Hydrocodone/Acetaminophen (Hydrocodone-Acetamin 5-325 mg) 5 Mg-325 Mg Tablet, 1 TAB PO Q6H PRN for PAIN-MODERATE (5-7) Prescribed by: SHAYY UPTON on 09/14/22 1451 Metoprolol Succinate (Metoprolol Succinate) 25 Mg Tab.er.24h, 25 MG PO DAILY Prescribed by: ARACELIS GHOSH on 09/02/22 1045 Tramadol HCl (Tramadol HCl) 50 Mg Tablet, 25 MG PO Q6H PRN for ABDOMINAL PAIN Prescribed by: ARACELIS GHOSH on 09/02/22 1046 Review of Systems Review of Systems Constitutional: see HPI Past Gqjylwy-Bvmqdl-Mmueyj Hx Patient Social History Tobacco Use?: No Smoking Status: Never a Smoker Smokeless Tobacco Frequency: Never a User Use of E-Cig and/or Vaping dev: Yes E-Cig or Vaping type used: Nicotine Use of E-Cig and/or Vaping Mirza: Current Everyday User Substance use?: No Alcohol Use?: No Pt feels they are or have been: No Immunizations Up To Date First/Initial COVID19 Vaccinat: x2 Second COVID19 Vaccination Watson: x2 Third COVID19 Vaccination Date: x2 Seasonal Allergies Seasonal Allergies: No Past Medical History Surgery/Hospitalization HX: denies Surgeries: No Respiratory: No Cardiac: No Neurological: No Gastrointestinal: No Musculoskeletal: No Endocrine: No Cancer: No Psychosocial: No Integumentary: No Family Medical History No Pertinent Family Hx Physical Exam Vital Signs Vital Signs - First Documented 10/06/22 13:49 Temp 36.0 Pulse 103 Resp 19 B/P (MAP) 149/89 (109) O2 Delivery Room Air Capillary Refill : Less Than 3 Seconds Height/Weight/BMI Height: 5'7.00" Weight: 120lbs. 12.0oz. [id number]; 17.00 BMI Method:Estimated General Appearance: WD/WN, no apparent distress HEENT: normal ENT inspection, pharynx normal Neck: non-tender, supple Respiratory: chest non-tender, lungs clear, normal breath sounds, no respiratory distress, no accessory muscle use Cardiovascular: regular rate, rhythm, no murmur Gastrointestinal: soft, no organomegaly, tenderness (Tenderness to palpation with light touch diffusely about his abdomen even in the lower quadrants but it does appear to be worse in the upper quadrants bilaterally. There is voluntary guarding. No rebound tenderness. No mass organomegaly. No skin changes) Extremities: normal range of motion, non-tender, normal inspection, no pedal edema, no calf tenderness Back: normal inspection, no CVA tenderness, no vertebral tenderness Neurologic/Psychiatric: alert, normal mood/affect, oriented x 3 Skin: normal color, warm/dry Progress/Results/Core Measures Results/Orders Lab Results Laboratory Tests Test 10/06/22 13:59 10/06/22 14:34 Range/Units White Blood Count 5.0 4.3-11.0 10^3/uL Red Blood Count 5.17 4.30-5.52 10^6/uL Hemoglobin 14.9 13.3-17.7 g/dL Hematocrit 45 40-54 % Mean Corpuscular Volume 87 80-99 fL Mean Corpuscular Hemoglobin 29 25-34 pg Mean Corpuscular Hemoglobin Concent 33 32-36 g/dL Red Cell Distribution Width 13.1 10.0-14.5 % Platelet Count 236 130-400 10^3/uL Mean Platelet Volume 10.2 9.0-12.2 fL Immature Granulocyte % (Auto) 0 % Neutrophils (%) (Auto) 66 42-75 % Lymphocytes (%) (Auto) 24 12-44 % Monocytes (%) (Auto) 8 0-12 % Eosinophils (%) (Auto) 2 0-10 % Basophils (%) (Auto) 1 0-10 % Neutrophils # (Auto) 3.3 1.8-7.8 10^3/uL Lymphocytes # (Auto) 1.2 1.0-4.0 10^3/uL Monocytes # (Auto) 0.4 0.0-1.0 10^3/uL Eosinophils # (Auto) 0.1 0.0-0.3 10^3/uL Basophils # (Auto) 0.0 0.0-0.1 10^3/uL Immature Granulocyte # (Auto) 0.0 0.0-0.1 10^3/uL Sodium Level 142 135-145 MMOL/L Potassium Level 3.8 3.6-5.0 MMOL/L Chloride Level 106 98-107 MMOL/L Carbon Dioxide Level 23 21-32 MMOL/L Anion Gap 13 5-14 MMOL/L Blood Urea Nitrogen 10 7-18 MG/DL Creatinine 0.87 0.60-1.30 MG/DL Estimat Glomerular Filtration Rate 125 BUN/Creatinine Ratio 11 Glucose Level 102 70-105 MG/DL Calcium Level 10.2 H 8.5-10.1 MG/DL Corrected Calcium 9.9 8.5-10.1 MG/DL Total Bilirubin 0.7 0.1-1.0 MG/DL Aspartate Amino Transf (AST/SGOT) 16 5-34 U/L Alanine Aminotransferase (ALT/SGPT) 14 0-55 U/L Alkaline Phosphatase 70 40-136 U/L Total Protein 7.6 6.4-8.2 GM/DL Albumin 4.4 3.2-4.5 GM/DL Lipase 241 H 8-78 U/L Urine Color YELLOW Urine Clarity SL CLOUDY Urine pH 6.0 5-9 Urine Specific [place] 1.025 H 1.016-1.022 Urine Protein 1+ H NEGATIVE Urine Glucose (UA) NEGATIVE NEGATIVE Urine Ketones 1+ H NEGATIVE Urine Nitrite NEGATIVE NEGATIVE Urine Bilirubin 2+ H NEGATIVE Urine Urobilinogen 1.0 < = 1.0 MG/DL Urine Leukocyte Esterase NEGATIVE NEGATIVE Urine RBC (Auto) NEGATIVE NEGATIVE Urine RBC RARE /HPF Urine WBC RARE /HPF Urine Squamous Epithelial Cells RARE /HPF Urine Crystals PRESENT H /LPF Urine Calcium Oxalate Crystals RARE H /LPF Urine Bacteria TRACE /HPF Urine Casts NONE /LPF Urine Mucus MODERATE H /LPF Urine Culture Indicated NO My Orders Orders - HADLEY CASTILLO DO Comprehensive Metabolic Panel (10/06/22 13:54) Lipase (10/06/22 13:54) Cbc With Automated Diff (10/06/22 13:54) Ua Culture If Indicated (10/06/22 13:54) Ct Abdomen/Pelvis W (10/06/22 13:54) Ns Iv 500 Ml (Sodium Chloride 0.9%) (10/06/22 13:55) Iohexol Injection (Omnipaque 350 Mg/Ml 1 (10/06/22 14:15) Received Contrast (Hold Metformin- Contr (10/06/22 14:15) Ns (Ivpb) (Sodium Chloride 0.9% Ivpb Bag (10/06/22 14:15) Fentanyl Inj (Sublimaze Injection) (10/06/22 15:00) Medications Given in ED Current Medications Medications Dose Ordered Sig/Maite Route Start Time Stop Time Status Last Admin Dose Admin Iohexol 100 ml ONCE ONCE IV 10/06/22 14:15 10/06/22 14:16 DC 10/06/22 14:31 62 ML Sodium Chloride 100 ml ONCE ONCE IV 10/06/22 14:15 10/06/22 14:16 DC 10/06/22 14:31 80 ML Vital Signs/I&O 10/06/22 13:49 Temp 36.0 Pulse 103 Resp 19 B/P (MAP) 149/89 (109) O2 Delivery Room Air Blood Pressure Mean: 109 Departure Impression Primary Impression: Chronic pancreatitis Qualified Codes: K86.1 - Other chronic pancreatitis Disposition: 01 HOME, SELF-CARE Condition: Stable Departure-Patient Inst. Referrals: [facility] (PCP/Family) Primary Care Physician Patient Instructions: Chronic Pancreatitis Add. Discharge Instructions: Maintain a clear liquid diet until your symptoms improve. Follow-up with your GI specialist by calling to schedule an appointment. Take the pain medication as prescribed as needed. To the emergency department for any severe concerns. All discharge instructions reviewed with patient and/or family. Voiced understanding. HADLEY CASTILLO DO Oct 06, 2022 13:58
[2022-10-06 14:13] LABS: BASOPHILS % (AUTO) 1 % (0-10); EOSINOPHILS # (AUTO) 0.1 10^3/uL (0.0-0.3); EOSINOPHILS % (AUTO) 2 % (0-10); HEMATOCRIT 45 % (40-54); HEMOGLOBIN 14.9 g/dL (13.3-17.7); LYMPHOCYTES # (AUTO) 1.2 10^3/uL (1.0-4.0); LYMPHOCYTES % (AUTO) 24 % (12-44); MEAN CORPUSCULAR HEMOGLOBIN 29 pg (25-34); MEAN CORPUSCULAR HGB CONC 33 g/dL (32-36); MEAN CORPUSCULAR VOLUME 87 fL (80-99); MEAN PLATELET VOLUME 10.2 fL (9.0-12.2); MONOCYTES # (AUTO) 0.4 10^3/uL (0.0-1.0); MONOCYTES % (AUTO) 8 % (0-12); NEUTROPHILS # (AUTO) 3.3 10^3/uL (1.8-7.8); NEUTROPHILS % (AUTO) 66 % (42-75); PLATELET COUNT 236 10^3/uL (130-400)
[2022-10-06] MEDS ORDERED: HOLD METFORMIN - RECEIVED CONTRAST 20 ML VIAL IV SCH (14:15)
[2022-10-06] MEDS ORDERED: NS 100 ML (IVPB) BAG IV ONE (14:15)
[2022-10-06] MEDS ORDERED: IOHEXOL 350 MG/ML 100 ML (OMNIPAQUE 350) VIAL IV ONE (14:15)
[2022-10-06 14:27] LABS: ALBUMIN 4.4 GM/DL (3.2-4.5)
[2022-10-06 14:28] LABS: POTASSIUM 3.8 MMOL/L (3.6-5.0)
[2022-10-06 14:29] LABS: CALCIUM 10.2 MG/DL (8.5-10.1)
[2022-10-06 14:30] LABS: TOTAL PROTEIN 7.6 GM/DL (6.4-8.2)
[2022-10-06 14:32] LABS: BILIRUBIN,TOTAL 0.7 MG/DL (0.1-1.0)
[2022-10-06 14:34] LABS: CREATININE SERUM 0.87 MG/DL (0.60-1.30)
[2022-10-06 14:42] LABS: CLARITY,URINE SL CLOUDY; COLOR,URINE YELLOW; GLUCOSE, URINE (UA) NEGATIVE (NEGATIVE); KETONES,URINE 1+ (NEGATIVE); LEUKOCYTE ESTERASE ,URINE NEGATIVE (NEGATIVE); NITRITE,URINE NEGATIVE (NEGATIVE); PROTEIN,URINE 1+ (NEGATIVE)
--- NOTE | 2022-10-06 14:47 | Diagnostic Imaging Report ---
EXAMINATION: CT abdomen and pelvis with intravenous contrast. TECHNIQUE: Multiple contiguous axial images were obtained through the abdomen and pelvis after the uneventful administration of intravenous contrast. All CT scans use one or more of the following dose optimizing techniques: automated exposure control, MA and/or KvP adjustment based on patient size and exam type or iterative reconstruction. HISTORY: Epigastric pain. Pancreatic pseudocyst. COMPARISON: 09/14/2022. FINDINGS: The heart is unremarkable. The included lung bases are clear. There is interval decrease in size in the peripancreatic fluid collection now measuring 7.2 x 2.7 cm. No new abnormal collections are seen. No enhancing pancreatic lesions are seen. The pancreatic duct is nondilated. Increased peripancreatic inflammatory changes are seen. The liver, spleen, adrenal glands, and kidneys have a normal appearance. The gallbladder is nondistended. There is no pathologically enlarged mesenteric or retroperitoneal adenopathy. The bowel loops are nondilated. The appendix is visualized in the right lower quadrant and has a normal appearance. Free fluid is seen in the lower abdomen and pelvis. No free air. No acute osseous abnormalities. Ureters and bladder are grossly normal. There is no free air, loculated collection, or adenopathy in the pelvis. IMPRESSION: 1. Interval decrease in size in the pancreatic pseudocyst. No new collections are identified. Recommend continued followup as indicated. 2. Increased peripancreatic inflammatory changes are seen, particularly in the head and proximal body of the pancreas. 3. Small amount of free fluid in the lower abdomen and pelvis. Dictated by: Dictated on workstation # [id number]
[2022-10-06 14:56] LABS: BACTERIA,URINE TRACE /HPF; BILIRUBIN,URINE 2+ (NEGATIVE); CALCIUM OXALATE CRYSTALS,UR RARE /LPF; RBC,URINE RARE /HPF; SQUAMOUS EPITHELIAL CELL,UR RARE /HPF; WBC,URINE RARE /HPF
[2022-10-06] MEDS ORDERED: fentaNYL INJ 100 MCG/2 ML AMP IVP ONE (15:00)
[2022-10-06] MEDS ORDERED: ACHD5005 PO (15:34)
[2022-10-06 15:37] VITALS: BP 134/64
== END 2022-10-06 15:38 | disposition home or self-care (01) ==
LOC: EDUNIT# 13:38 → ER 13:40
DX: K86.1 Other chronic pancreatitis (principal); F17.290 Nicotine dependence, other tobacco product, uncomplicated
CPT/HCPCS: 36415; 74177; 80053; 81000; 83690; 85025

== ENCOUNTER 2022-12-30 17:22 | Emergency (ER) | payer SELFPAY ==
[~2022-12-30] VITALS: Ht 182.9 cm; Wt 59.0 kg
[~2022-12-30 17:22] MED LIST changes: +PANT40TA2 PO
[2022-12-30] MEDS ORDERED: NS IV 1000 ML 1,000 ML IV STA (17:57)
[2022-12-30] MEDS ORDERED: fentaNYL INJECTION 100 MCG/2 ML VIAL IVP STA (17:57)
--- NOTE | 2022-12-30 17:59 | ED Abdominal Pain ---
General Stated Complaint: ABD PAIN, HX OF PANCREATITIS Source of Information: Patient Exam Limitations: No Limitations (ZAY LORA) History of Present Illness Date Seen by Provider: Dec 30, 2022 Time Seen by Provider: 18:00 Initial Comments Patient is a 22-year-old male who presents ED with left-sided upper abdominal pain. Pain is described as sharp and stabbing with radiation to the back. History of pancreatitis. Patient was seen here last week twice for similar type pain. States the pain appears to be worsening. Has been doing clear liquid diet. Patient has been taking hydrocodone without much improvement. Has not been able to follow-up with his primary care physician. Reports nausea without vomiting or diarrhea. No history of previous abdominal surgery. Denies of any excessive NSAID use or alcohol use. Denies of any chest pain, cough, shortness of breath, fever. Reports some chills. Denies of any urinary symptoms. History of pseudocyst. Denies any alcohol use or illict drug use. (ZAY LORA) Allergies and Home Medications Allergies Coded Allergies: NKANo Known Allergies (Unverified Allergy, Mild, 07/13/09) Patient Home Medication List Home Medication List Reviewed: Yes (ZAY LORA) Hydrocodone/Acetaminophen (Hydrocodone-Acetamin 5-325 mg) 5 Mg-325 Mg Tablet, 1 TAB PO Q6H PRN for PAIN-MODERATE (5-7) Prescribed by: SHAYY UPTON on 09/14/22 1451 Hydrocodone/Acetaminophen (Hydrocodone-Acetamin 5-325 mg) 5 Mg-325 Mg Tablet, 1 TAB PO Q4H PRN for PAIN-MODERATE (5-7) Prescribed by: HADLEY CASTILLO MD on 10/06/22 1534 Hydrocodone/Acetaminophen (Hydrocodone-Acetamin 5-325 mg) 5 Mg-325 Mg Tablet, 1 TAB PO Q4H PRN for PAIN-MODERATE (5-7) Prescribed by: SCOT LACKEY on 12/25/22 1444 Metoprolol Succinate (Metoprolol Succinate) 25 Mg Tab.er.24h, 25 MG PO DAILY Prescribed by: ARACELIS GHOSH on 09/02/22 1045 Pantoprazole Sodium (Protonix) 40 Mg Tablet.dr, 40 MG PO DAILY Prescribed by: SCOT LACKEY on 12/25/22 1444 Tramadol HCl (Tramadol HCl) 50 Mg Tablet, 25 MG PO Q6H PRN for ABDOMINAL PAIN Prescribed by: ARACELIS GHOSH on 09/02/22 1046 Review of Systems Review of Systems Constitutional: chills; No diaphoresis, No fever, No malaise, No weakness EENTM: No Double Vision, No Eye Pain Respiratory: Denies Cough, Denies Orthopnea Cardiovascular: Denies Chest Pain Gastrointestinal: Abdominal Pain; Denies Constipated, Denies Diarrhea; Nausea; Denies Vomiting Genitourinary: Denies Burning, Denies Discharge, Denies Drainage, Denies Frequency Musculoskeletal: No back pain, No joint pain Skin: No change in color, No change in hair/nails Psychiatric/Neurological: Denies Anxiety, Denies Depressed (ZAY LORA) All Other Systems Reviewed Negative Unless Noted: Yes (ZAY LORA) Past Difgpnb-Iifaah-Wbukfd Hx Immunizations Up To Date First/Initial COVID19 Vaccinat: x2 Second COVID19 Vaccination Watson: x2 Third COVID19 Vaccination Date: x2 (ZAY LORA) Seasonal Allergies Seasonal Allergies: No (ZAY LORA) Past Medical History Surgery/Hospitalization HX: denies Surgeries: No Respiratory: No Cardiac: No Neurological: No Gastrointestinal: No Musculoskeletal: No Endocrine: No Cancer: No Psychosocial: No Integumentary: No (ZAY LORA) Family Medical History No Pertinent Family Hx (ZAY LORA) Physical Exam Vital Signs Vital Signs - First Documented 12/30/22 12/30/22 17:53 22:31 Temp 36.8 Pulse 120 Resp 19 B/P (MAP) 133/88 (103) Pulse Ox 98 O2 Delivery Room Air (CASSIE SWEENEY MD) Vital Signs Capillary Refill : (ZAY LORA) Height/Weight/BMI Height: 5'7.00" Weight: 120lbs. 12.0oz. 54.153376qd; 17.00 BMI Method:Estimated General Appearance: WD/WN, no apparent distress HEENT: PERRL/EOMI, normal ENT inspection, TMs normal, pharynx normal Neck: non-tender, full range of motion, supple, normal inspection Respiratory: chest non-tender, lungs clear, normal breath sounds, no respiratory distress, no accessory muscle use Cardiovascular: regular rate, rhythm, no edema, no gallop, no JVD Gastrointestinal: normal bowel sounds, soft, no organomegaly, tenderness (Left upper quadrant abdominal tenderness. Normal bowel sound throughout. No rebound or guarding.) Extremities: normal range of motion, non-tender, normal inspection Back: normal inspection, no CVA tenderness, no vertebral tenderness Neurologic/Psychiatric: maintenance fitter II-XII nml as tested, no motor/sensory deficits, alert, normal mood/affect, oriented x 3 Skin: normal color, warm/dry (ZAY LORA) Progress/Results/Core Measures Results/Orders Lab Results Laboratory Tests Test 12/30/22 18:10 12/30/22 19:50 Range/Units White Blood Count 7.4 4.3-11.0 10^3/uL Red Blood Count 5.86 H 4.30-5.52 10^6/uL Hemoglobin 16.0 13.3-17.7 g/dL Hematocrit 47 40-54 % Mean Corpuscular Volume 80 80-99 fL Mean Corpuscular Hemoglobin 27 25-34 pg Mean Corpuscular Hemoglobin Concent 34 32-36 g/dL Red Cell Distribution Width 13.3 10.0-14.5 % Platelet Count 221 130-400 10^3/uL Mean Platelet Volume 10.2 9.0-12.2 fL Immature Granulocyte % (Auto) 0 % Neutrophils (%) (Auto) 73 42-75 % Lymphocytes (%) (Auto) 17 12-44 % Monocytes (%) (Auto) 9 0-12 % Eosinophils (%) (Auto) 0 0-10 % Basophils (%) (Auto) 0 0-10 % Neutrophils # (Auto) 5.4 1.8-7.8 10^3/uL Lymphocytes # (Auto) 1.3 1.0-4.0 10^3/uL Monocytes # (Auto) 0.6 0.0-1.0 10^3/uL Eosinophils # (Auto) 0.0 0.0-0.3 10^3/uL Basophils # (Auto) 0.0 0.0-0.1 10^3/uL Immature Granulocyte # (Auto) 0.0 0.0-0.1 10^3/uL Sodium Level 137 135-145 MMOL/L Potassium Level 3.4 L 3.6-5.0 MMOL/L Chloride Level 100 98-107 MMOL/L Carbon Dioxide Level 23 21-32 MMOL/L Anion Gap 14 5-14 MMOL/L Blood Urea Nitrogen 8 7-18 MG/DL Creatinine 0.85 0.60-1.30 MG/DL Estimat Glomerular Filtration Rate 126 BUN/Creatinine Ratio 9 Glucose Level 110 H 70-105 MG/DL Calcium Level 10.1 8.5-10.1 MG/DL Corrected Calcium 8.5-10.1 MG/DL Total Bilirubin 0.7 0.1-1.0 MG/DL Aspartate Amino Transf (AST/SGOT) 19 5-34 U/L Alanine Aminotransferase (ALT/SGPT) 13 0-55 U/L Alkaline Phosphatase 63 40-136 U/L Troponin I < 0.028 <0.028 NG/ML Total Protein 8.7 H 6.4-8.2 GM/DL Albumin 4.7 H 3.2-4.5 GM/DL Lipase 37 8-78 U/L Serum Alcohol < 10 <10 MG/DL Urine Color YELLOW Urine Clarity CLEAR Urine pH 6.5 5-9 Urine Specific [place] 1.015 L 1.016-1.022 Urine Protein 2+ H NEGATIVE Urine Glucose (UA) NEGATIVE NEGATIVE Urine Ketones 4+ H NEGATIVE Urine Nitrite NEGATIVE NEGATIVE Urine Bilirubin 2+ H NEGATIVE Urine Urobilinogen 1.0 < = 1.0 MG/DL Urine Leukocyte Esterase NEGATIVE NEGATIVE Urine RBC (Auto) NEGATIVE NEGATIVE Urine RBC 0-2 /HPF Urine WBC 0-2 /HPF Urine Squamous Epithelial Cells NONE /HPF Urine Crystals NONE /LPF Urine Bacteria TRACE /HPF Urine Casts NONE /LPF Urine Mucus LARGE H /LPF Urine Culture Indicated NO (CASSIE SWEENEY MD) Medications Given in ED Current Medications Medications Dose Ordered Sig/Maite Route Start Time Stop Time Status Last Admin Dose Admin Iohexol 100 ml ONCE ONCE IV 12/30/22 18:15 12/30/22 18:16 DC 12/30/22 19:12 67 ML Morphine Sulfate 4 mg ONCE ONCE IVP 12/30/22 20:45 12/30/22 20:46 DC 12/30/22 21:00 4 MG Sodium Chloride 100 ml ONCE ONCE IV 12/30/22 18:15 12/30/22 18:16 DC 12/30/22 19:12 100 ML (CASSIE SWEENEY MD) Vital Signs/I&O 12/30/22 12/30/22 17:53 22:31 Temp 36.8 Pulse 120 100 Resp 19 18 B/P (MAP) 133/88 (103) 130/77 Pulse Ox 98 O2 Delivery Room Air Room Air (CASSIE SWEENEY MD) Comment Sinus rhythm with short DE interval, possible right atrial lodgment, possible left atrial lodgment, possible right ventricular conduction delay, 95 bpm, QRS duration 98 MS, QTc 375 MS (ZAY LORA) Departure Communication (PCP) Reviewed previous ER visits, H&P, lab testing. Patient has been seen here multiple times for this ongoing upper abdominal pain. This pain has intensified over the past 2 days. Sharp stabbing pain radiate to the back from the upper abdomen. patient Was diagnosed with pancreatitis and was admitted here back in July transferred [address] [facility] and evaluated by their GI team. Patient had a pseudocyst that was treated nonoperative. He has been having ongoing pain in his upper abdomen. Nausea chills without vomiting. Pain worse with eating. Patient has been trying clear liquids. Personally saw patient twice last week for similar type pain. CBC, CMP, lipase CT abdomen pelvis was ordered. Due to location of pain added a EKG and troponin. CBC, CMP was grossly unremarkable. Lipase was normal. Normal troponin. EKG showed sinus rhythm with short DE interval. Patient was tachycardic at 120 bpm. alcohol negative. Denies drinking any alcohol. Denies any illicit drug use. Patient was started on liter fluid and given IV fentanyl. Does have guarding in his upper abdomen. Appears in moderate distress. Some improvement with pain. CT abdomen and pelvis shows a large rim-enhancing fluid collection either replaces or severely compresses the pancreatic tail that is likely a abscess walled off necrosis or pseudocyst. Fluid collection measures 9 x 6 x 7 cm. In September patient had a CT scan which showed the lesion as 7 x 2.7 cm. This has increased in size. With normal white blood count and afebrile unlikely a true abscess. Patient continue having pain and was given morphine with some improvement. No active vomiting here. Patient was discussed with [facility] with transfer physician Dr. Olivier. She contacted their GI team regarding patient. They did accept patient for transfer. Attempted to get ground EMS but there is no availability again for at least 24 hours. GI is wanting to evaluate patient in a timely manner. Will utilize air transportation. Patient was excepted by med flight. (ZAY LORA) Impression Primary Impression: Fluid collection of pancreas Disposition: 02 XFER SHT-TRM HOSP Condition: Stable Transfer Medically Cleared for Xfer: Yes Transfer Reason: Exceeds level of care Time Spoke to Accepting Phy: 21:[address] Oliveir Transfer Time: 21:37 Transfer Facility: [facility] Method of Transfer: Air (ZAY LORA) Departure-Patient Inst. Referrals: BHAVIN FLORES (PCP/Family) Primary Care Physician ATTENDING PHYSICIAN NOTE: I was physically present as attending physician in the emergency department during the care of this patient, but I was not directly involved in the decision making or delivery of care for this patient. (CASSIE SWEENEY MD) ZAY LORA Dec 30, 2022 17:59 CASSIE SWEENEY MD Dec 31, 2022 03:10
[2022-12-30] MEDS ORDERED: IOHEXOL 350 MG/ML 100 ML (OMNIPAQUE 350) VIAL IV ONE (18:15)
[2022-12-30] MEDS ORDERED: NS 100 ML (IVPB) BAG IV ONE (18:15)
[2022-12-30] MEDS ORDERED: HOLD METFORMIN - RECEIVED CONTRAST 20 ML VIAL IV SCH (18:15)
[2022-12-30 18:17] LABS: BASOPHILS % (AUTO) 0 % (0-10); EOSINOPHILS % (AUTO) 0 % (0-10); HEMATOCRIT 47 % (40-54); LYMPHOCYTES # (AUTO) 1.3 10^3/uL (1.0-4.0); LYMPHOCYTES % (AUTO) 17 % (12-44); MEAN CORPUSCULAR HEMOGLOBIN 27 pg (25-34); MEAN CORPUSCULAR HGB CONC 34 g/dL (32-36); MEAN CORPUSCULAR VOLUME 80 fL (80-99); MEAN PLATELET VOLUME 10.2 fL (9.0-12.2); MONOCYTES # (AUTO) 0.6 10^3/uL (0.0-1.0); MONOCYTES % (AUTO) 9 % (0-12); NEUTROPHILS # (AUTO) 5.4 10^3/uL (1.8-7.8); NEUTROPHILS % (AUTO) 73 % (42-75); PLATELET COUNT 221 10^3/uL (130-400); WHITE BLOOD COUNT 7.4 10^3/uL (4.3-11.0)
[2022-12-30 18:29] LABS: ALBUMIN 4.7 GM/DL (3.2-4.5)
[2022-12-30 18:30] LABS: CHLORIDE 100 MMOL/L (98-107); POTASSIUM 3.4 MMOL/L (3.6-5.0); SODIUM 137 MMOL/L (135-145)
[2022-12-30 18:31] LABS: CALCIUM 10.1 MG/DL (8.5-10.1)
[2022-12-30 18:32] LABS: GLUCOSE 110 MG/DL (70-105); TOTAL PROTEIN 8.7 GM/DL (6.4-8.2)
[2022-12-30 18:33] LABS: CARBON DIOXIDE 23 MMOL/L (21-32)
[2022-12-30 18:34] LABS: BILIRUBIN,TOTAL 0.7 MG/DL (0.1-1.0)
[2022-12-30 18:35] LABS: ALKALINE PHOSPHATASE 63 U/L (40-136)
[2022-12-30 18:38] LABS: ALANINE AMINOTRANSFERASE 13 U/L (0-55)
[2022-12-30 18:39] LABS: LIPASE 37 U/L (8-78)
[2022-12-30 18:59] LABS: BUN/CREATININE RATIO 9; CREATININE SERUM 0.85 MG/DL (0.60-1.30); GFR ESTIMATED 126
--- NOTE | 2022-12-30 19:18 | Diagnostic Imaging Report ---
CT ABDOMEN/PELVIS W TECHNIQUE: Multiple contiguous axial images were obtained through the abdomen and pelvis after administration of intravenous contrast. All CT scans use one or more of the following dose optimizing techniques: automated exposure control, MA and/or KvP adjustment based on patient size and exam type or iterative reconstruction. INDICATION: Left-sided abdominal pain COMPARISON: 10/06/2022 FINDINGS: Lower chest: The lung bases are clear. No pericardial or pleural effusion. Peritoneum: No free intraperitoneal air or fluid. Liver and biliary system: The liver is normal. Gallbladder is normal. No biliary duct dilatation. Spleen and Pancreas: Spleen is normal. The tail of the pancreas is replaced and/or severely compressed by a 9 x 6 x 7 cm rim-enhancing fluid collection. The head and body of the pancreas enhance normally. Adrenals: Normal. tract: The kidneys enhance normally without suspicious mass or obstruction. Urinary bladder is distended without wall thickening. Prostate is not enlarged. GI tract: The appendix is filled with fluid and food debris. No bowel obstruction. No pericolonic inflammatory changes. Normal appendix. Vasculature and Lymph nodes: Normal caliber aorta. No abdominal or pelvic lymphadenopathy. Musculoskeletal: No concerning osseous lesion. IMPRESSION: 1. Large rim-enhancing fluid collection either replaces or severely compresses the pancreatic tail that is likely an abscess, walled-off necrosis and/or pseudocyst. Correlation with serum lipase levels is advised to assess for features of acute pancreatitis. Dictated by: Dictated on workstation # [id number]
[2022-12-30 20:19] LABS: BACTERIA,URINE TRACE /HPF; BILIRUBIN,URINE 2+ (NEGATIVE); CLARITY,URINE CLEAR; COLOR,URINE YELLOW; GLUCOSE, URINE (UA) NEGATIVE (NEGATIVE); KETONES,URINE 4+ (NEGATIVE); LEUKOCYTE ESTERASE ,URINE NEGATIVE (NEGATIVE); NITRITE,URINE NEGATIVE (NEGATIVE); PH,URINE 6.5 (5-9); PROTEIN,URINE 2+ (NEGATIVE); RBC,URINE 0-2 /HPF; WBC,URINE 0-2 /HPF
[2022-12-30] MEDS ORDERED: morphine INJ 10 MG/ML 1ML (SYR OR VIAL) IVP ONE (20:45)
[2022-12-30 22:31] VITALS: BP 130/77
== END 2022-12-30 22:31 | disposition short-term general hospital (02) ==
LOC: EDUNIT# 17:22 → ER 17:24
DX: K86.89 Other specified diseases of pancreas (principal); R00.0 Tachycardia, unspecified; Z87.19 Personal history of other diseases of the digestive system
CPT/HCPCS: 74177; 80053; 81000; 83690; 84484; 85025; 93005; 99284; G0480; 36415; 80320

== ENCOUNTER 2023-03-06 11:12 | Emergency (ER) | payer SELFPAY ==
[~2023-03-06] VITALS: Ht 185 cm; Wt 60.0 kg
[2023-03-06] MEDS ORDERED: NS IV 1000 ML 1,000 ML IV STA (11:36)
--- NOTE | 2023-03-06 11:40 | ED Abdominal Pain ---
General Chief Complaint: Abdominal/GI Problems Stated Complaint: HX OF PANCREATITIS | ABD PAIN Nursing Triage Note: PATIENT REPORTS CHRONIC PANCREATITIS WITH INCREASED PAIN OVER THE LAST FEW DAYS. HAD SURGERY ABOUT 2 MONTHS AGO AND REPORTS HE HAS FELT WELL SINCE THEN, UNTIL RECENTLY Source of Information: Patient Exam Limitations: No Limitations (YAMILETH MENJIVAR) History of Present Illness Date Seen by Provider: Mar 06, 2023 Time Seen by Provider: 11:20 Initial Comments 22 YO male with PMH of alcohol-induced chronic pancreatitis presents to ED with abdominal pain, onset x 3 days. Pt reports two months ago while at [facility] he underwent surgery, describing "a tube down my throat and they removed stuff around my pancreas." He does not have his records here. States he felt back to normal after the surgery, however 3 days ago he developed severe LUQ and epigastric pain that radiates to his back currently rating it 8/10. Repo rts associated nausea and 1-2 episodes of vomiting. Movement and eating makes his pain worse, rest makes it better. He denies fever, chills, diarrhea, chest pain, shortness of breath, hematemesis, urinary symptoms or any other acute sx. Pt denies ETOH intake since diagnosis. Timing/Duration: 2-3 Days Severity/Quality: Moderate, Severe Location: LUQ, Epigastric Radiation: Back Activities at Onset: None Modifying Factors: Improves With Eating, Improves With Movement, Improves With Resting; Worsens With Urinating, Worsens With Vomiting Associated Symptoms: No Diaphoresis, No Fever/Chills, No Fatigue, No Headache, No Heartburn; Nausea/Vomiting; No Rash, No Shortness of Air, No Syncope, No Weakness (YAMILETH MENJIVAR) Allergies and Home Medications Allergies Coded Allergies: NKANo Known Allergies (Unverified Allergy, Mild, 07/13/09) Patient Home Medication List Home Medication List Reviewed: Yes (YAMILETH MENJIVAR) Hydrocodone/Acetaminophen (Hydrocodone-Acetamin 5-325 mg) 5 Mg-325 Mg Tablet, 1 TAB PO Q6H PRN for PAIN-MODERATE (5-7) Prescribed by: SHAYY UPTON on 09/14/22 0279 Hydrocodone/Acetaminophen (Hydrocodone-Acetamin 5-325 mg) 5 Mg-325 Mg Tablet, 1 TAB PO Q4H PRN for PAIN-MODERATE (5-7) Prescribed by: HADLEY CASTILLO MD on 10/06/22 1534 Hydrocodone/Acetaminophen (Hydrocodone-Acetamin 5-325 mg) 5 Mg-325 Mg Tablet, 1 TAB PO Q4H PRN for PAIN-MODERATE (5-7) Prescribed by: SCOT LACKEY on 12/25/22 1444 Metoprolol Succinate (Metoprolol Succinate) 25 Mg Tab.er.24h, 25 MG PO DAILY Prescribed by: ARACELIS GHOSH on 09/02/22 1045 Pantoprazole Sodium (Protonix) 40 Mg Tablet.dr, 40 MG PO DAILY Prescribed by: SCOT LACKEY on 12/25/22 1444 Tramadol HCl (Tramadol HCl) 50 Mg Tablet, 25 MG PO Q6H PRN for ABDOMINAL PAIN Prescribed by: ARACELIS GHOSH on 09/02/22 1046 Review of Systems Review of Systems Constitutional: No chills, No diaphoresis, No fever, No malaise Respiratory: Denies Cough, Denies Shortness of Air Cardiovascular: Denies Chest Pain, Denies Irregular Heart Rate, Denies Lightheadedness Gastrointestinal: Abdominal Pain; Denies Diarrhea; Nausea; Denies Poor Fluid I ntake; Vomiting Genitourinary: Denies Burning, Denies Discharge, Denies Frequency Musculoskeletal: back pain; No muscle stiffness, No muscle cramps, No muscle weakness Skin: No change in color, No change in hair/nails, No pruritus, No rash Psychiatric/Neurological: No Symptoms Reported Endocrine: No Symptoms Reported Hematologic/Lymphatic: No Symptoms Reported (YAMILETH MENJIVAR) All Other Systems Reviewed Negative Unless Noted: Yes (YAMILETH MENJIVAR) Past Aqynjdb-Conqum-Cnkfdt Hx Patient Social History Tobacco Use?: No Smoking Status: Never a Smoker Substance use?: No Alcohol Use?: No (YAMILETH MENJIVAR) Immunizations Up To Date First/Initial COVID19 Vaccinat: x2 Second COVID19 Vaccination Watson: x2 Third COVID19 Vaccination Date: x2 (YAMILETH MENJIVAR) Seasonal Allergies Seasonal Allergies: No (YAMILETH MENJIVAR) Past Medical History Surgery/Hospitalization HX: denies Surgeries: Yes Abdominal (procedure 2 months ago, for possible pseudocyst removal) Respiratory: No Cardiac: No Neurological: No Gastrointestinal: No Musculoskeletal: No Endocrine: No Cancer: No Psychosocial: No Integumentary: No (YAMILETH MENJIVAR) Family Medical History No Pertinent Family Hx (YAMILETH MENJIVAR) Physical Exam Vital Signs Vital Signs - First Documented 03/06/23 03/06/23 11:20 13:40 Temp 36.7 Pulse 92 Resp 15 B/P (MAP) 138/80 (99) Pulse Ox 99 O2 Delivery Room Air ([facility] Vital Signs Capillary Refill : Less Than 3 Seconds (YAMILETH MENJIVAR) Height/Weight/BMI Height: 5'7.00" Weight: 120lbs. 12.0oz. [id number]; 17.00 BMI Method:Estimated General Appearance: WD/WN, no apparent distress HEENT: PERRL/EOMI, normal ENT inspection Neck: non-tender, full range of motion, supple Respiratory: chest non-tender, lungs clear, normal breath sounds, no respiratory distress, no accessory muscle use; No respiratory distress Cardiovascular: normal peripheral pulses, regular rate, rhythm, no edema, no gallop, no JVD, no murmur Peripheral Pulses: 2+ Dorsalis Pedis (R), 2+ Left Dors-Pedis (L), 2+ Radial Pulses (R), 2+ Radial Pulses (L) Gastrointestinal: normal bowel sounds, soft, no organomegaly, no pulsatile mass; No abnormal bowel sounds, No distended; guarding (voluntary); No rebound; tenderness (tenderness to palpation of epigastric and left upper quadrants. Voluntary guarding. No rebound. No peritoneal signs. Normal bowel sounds. ) Rectal: deferred Extremities: normal range of motion, non-tender, normal inspection, no pedal edema, no calf tenderness, normal capillary refill Back: No no CVA tenderness, No no vertebral tenderness Neurologic/Psychiatric: no motor/sensory deficits, alert, normal mood/affect, oriented x 3 Skin: normal color, warm/dry Lymphatic: no adenopathy (YAMILETH MENJIVAR) Progress/Results/Core Measures Results/Orders Lab Results Laboratory Tests Test 03/06/23 12:20 Range/Units White Blood Count 6.9 4.3-11.0 10^3/uL Red Blood Count 5.08 4.30-5.52 10^6/uL Hemoglobin 14.0 13.3-17.7 g/dL Hematocrit 43 40-54 % Mean Corpuscular Volume 84 80-99 fL Mean Corpuscular Hemoglobin 28 25-34 pg Mean Corpuscular Hemoglobin Concent 33 32-36 g/dL Red Cell Distribution Width 13.5 10.0-14.5 % Platelet Count 219 130-400 10^3/uL Mean Platelet Volume 10.0 9.0-12.2 fL Immature Granulocyte % (Auto) 0 % Neutrophils (%) (Auto) 75 42-75 % Lymphocytes (%) (Auto) 17 12-44 % Monocytes (%) (Auto) 7 0-12 % Eosinophils (%) (Auto) 1 0-10 % Basophils (%) (Auto) 1 0-10 % Neutrophils # (Auto) 5.2 1.8-7.8 10^3/uL Lymphocytes # (Auto) 1.1 1.0-4.0 10^3/uL Monocytes # (Auto) 0.5 0.0-1.0 10^3/uL Eosinophils # (Auto) 0.0 0.0-0.3 10^3/uL Basophils # (Auto) 0.0 0.0-0.1 10^3/uL Immature Granulocyte # (Auto) 0.0 0.0-0.1 10^3/uL Sodium Level 140 135-145 MMOL/L Potassium Level 4.1 3.6-5.0 MMOL/L Chloride Level 106 98-107 MMOL/L Carbon Dioxide Level 25 21-32 MMOL/L Anion Gap 9 5-14 MMOL/L Blood Urea Nitrogen 13 7-18 MG/DL Creatinine 0.85 0.60-1.30 MG/DL Estimat Glomerular Filtration Rate 126 BUN/Creatinine Ratio 15 Glucose Level 84 70-105 MG/DL Calcium Level 9.4 8.5-10.1 MG/DL Corrected Calcium 9.2 8.5-10.1 MG/DL Total Bilirubin 0.4 0.1-1.0 MG/DL Aspartate Amino Transf (AST/SGOT) 20 5-34 U/L Alanine Aminotransferase (ALT/SGPT) 13 0-55 U/L Alkaline Phosphatase 65 40-136 U/L Total Protein 7.3 6.4-8.2 GM/DL Albumin 4.3 3.2-4.5 GM/DL Lipase 19 8-78 U/L (ANNA,HADLEY L DO) My Orders Orders - HADLEY CASTILLO DO Comprehensive Metabolic Panel (03/06/23 11:35) Lipase (03/06/23 11:35) Cbc And Automated Diff (03/06/23 11:35) Ondansetron Injection (Ondansetron Inj (03/06/23 11:45) Ed Iv/Invasive Line Start (03/06/23 11:36) Ns Iv 1000 Ml (Ns Iv 1000 Ml) (03/06/23 11:36) Ct Abdomen/Pelvis W (03/06/23 11:36) Fentanyl Injection (Fentanyl Injection (03/06/23 11:45) Iohexol Injection (Omnipaque 350 Mg/Ml 1 (03/06/23 13:00) Ns (Ivpb) 100 Ml (Sodium Chloride 0.9% 1 (03/06/23 13:00) Morphine Injection (Morphine Injection (03/06/23 13:07) (HADLEY CASTILLO DO) Medications Given in ED Current Medications Medications Dose Ordered Sig/Maite Route Start Time Stop Time Status Last Admin Dose Admin Fentanyl Citrate 50 mcg ONCE ONCE IVP 03/06/23 11:45 03/06/23 11:46 DC 03/06/23 12:16 50 MCG Iohexol 100 ml ONCE ONCE IV 03/06/23 13:00 03/06/23 13:01 DC 03/06/23 13:11 69 ML Ondansetron HCl 8 mg ONCE ONCE IVP 03/06/23 11:45 03/06/23 11:46 DC 03/06/23 12:16 8 MG Sodium Chloride 100 ml ONCE ONCE IV 03/06/23 13:00 03/06/23 13:01 DC 03/06/23 13:11 80 ML (HADLEY ACSTILLO DO) Vital Signs/I&O 03/06/23 03/06/23 11:20 13:40 Temp 36.7 Pulse 92 72 Resp 15 16 B/P (MAP) 138/80 (99) 129/69 Pulse Ox 99 97 O2 Delivery Room Air (HADLEY CASTILLO DO) Blood Pressure Mean: 99 Progress Progress Note : Time: 11:45 Progress Note 22 YO male with PMH of chronic pancreatitis presented to ED with c/o LUQ and epigastric pain for 2-3 days. Pt is afebrile with vital signs requiring no intervention at this time. Exam is remarkable for a thin male in NAD. TTP of epigastric and LUQ quadrants with mild voluntary guarding. No rebound tenderness, no peritoneal signs, no CVA tenderness. Upon further chart review it appears the patient had a pseudocyst with subsequent procedure [facility] ago. DDx includes post-operative complication, chronic pancreatitis, acute pancreatitis, gastritis, viral GI illness vs others. As the patient had a recent procedure plan to obtain CT abd/pelvis to r/o post-op complications. Will obtain CBC, CMP, and lipase. Plan for NPO, IV fluids, and pain control. Pt is agreeable. Labs: No leukocytosis. H/H unremarkable. Electrolytes within normal limits. Lipase 18. Imaging: Near complete resolution of pancreatic pseudocyst which has been marsupialized to the stomach. No new abnormality or adverse change is identified Reevaluation: -1312: Pt states he is feeling much better, pain is controlled. Discussed current findings. CT abd/pelvis pending at this time. -1330: Pt resting comfortably. Updated him on findings, CT shows resolution of pancreatic pseudocyst with no new abnormalities noted. Counselled on supportive care measures including tylenol/ibuprofen for pain. He verbalizes understanding and agreement with plan. He is stable for d/c. (YAMILETH MENJIVAR) Departure Communication (Admissions) I have seen and been evaluated the patient. I agree with the documented history and physical exam as per the medical student any additions were made by myself Patient is hemodynamically stable. Exam initially concerning for recurrent pseudocyst, pancreatitis given his recent history. CT scan obtained for this reason that shows a normal stent in place and near complete drainage of the pancreatic pseudocyst. There is no other acute intra-abdominal abnormality. Hi s lipase is normal. LFTs are normal as well. CBC shows normal white blood cell count, no evidence for anemia. The remainder of his chemistry is normal as well. We discharged home in stable condition with supportive care. He is feeling much better after provided medications here. (HADLEY CASTILLO DO) Impression Primary Impression: Epigastric pain Disposition: 01 HOME, SELF-CARE Condition: Stable Departure-Patient Inst. Referrals: BHAVIN FLORES (PCP/Family) Primary Care Physician Patient Instructions: Abdominal Pain, Adult ED Add. Discharge Instructions: As discussed your pancreas does not currently seem inflamed and there is no other evidence for any acute emergency in your abdomen otherwise. Your CT scan is normal with a fully drained cyst of your pancreas. The previously placed stent looks to be in good position. You may be experiencing discomfort secondary to the stent. Use ibuprofen and Tylenol as needed [id number] for pain. Increase your fluids and rest. Follow-up with your GI doctor as needed. Return to the emergency department for any severe concerns. All discharge instructions reviewed with patient and/or family. Voiced understanding. YAMILETH MENJIVAR Mar 06, 2023 11:40 HADLEY CASTILLO DO Mar 06, 2023 13:36
[2023-03-06] MEDS ORDERED: fentaNYL INJECTION 100 MCG/2 ML VIAL IVP ONE (11:45)
[2023-03-06] MEDS ORDERED: ONDANSETRON INJECTION 4 MG/2 ML (SDV) IVP ONE (11:45)
[2023-03-06 12:24] LABS: BASOPHILS % (AUTO) 1 % (0-10); EOSINOPHILS % (AUTO) 1 % (0-10); HEMATOCRIT 43 % (40-54); LYMPHOCYTES # (AUTO) 1.1 10^3/uL (1.0-4.0); LYMPHOCYTES % (AUTO) 17 % (12-44); MEAN CORPUSCULAR HEMOGLOBIN 28 pg (25-34); MEAN CORPUSCULAR HGB CONC 33 g/dL (32-36); MEAN CORPUSCULAR VOLUME 84 fL (80-99); MONOCYTES # (AUTO) 0.5 10^3/uL (0.0-1.0); MONOCYTES % (AUTO) 7 % (0-12); NEUTROPHILS # (AUTO) 5.2 10^3/uL (1.8-7.8); NEUTROPHILS % (AUTO) 75 % (42-75); PLATELET COUNT 219 10^3/uL (130-400); WHITE BLOOD COUNT 6.9 10^3/uL (4.3-11.0)
[2023-03-06 12:51] LABS: ALBUMIN 4.3 GM/DL (3.2-4.5); BILIRUBIN,TOTAL 0.4 MG/DL (0.1-1.0); CALCIUM 9.4 MG/DL (8.5-10.1); CREATININE SERUM 0.85 MG/DL (0.60-1.30); POTASSIUM 4.1 MMOL/L (3.6-5.0); TOTAL PROTEIN 7.3 GM/DL (6.4-8.2)
[2023-03-06] MEDS ORDERED: IOHEXOL 350 MG/ML 100 ML (OMNIPAQUE 350) VIAL IV ONE (13:00)
[2023-03-06] MEDS ORDERED: NS 100 ML (IVPB) BAG IV ONE (13:00)
[2023-03-06] MEDS ORDERED: morphine INJ 10 MG/ML 1ML (SYR OR VIAL) IVP STA (13:07)
--- NOTE | 2023-03-06 13:22 | Diagnostic Imaging Report ---
PROCEDURE: CT abdomen and pelvis with contrast. TECHNIQUE: Multiple contiguous axial images were obtained through the abdomen and pelvis after administration of intravenous contrast. Auto Exposure Controls were utilized during the CT exam to meet ALARA standards for radiation dose reduction. All CT scans use one or more of the following dose optimizing techniques: automated exposure control, MA and/or KvP adjustment based on patient size and exam type or iterative reconstruction. INDICATION: Pancreatitis. COMPARISON: 12/30/2022 FINDINGS: There is no significant change in the overall appearance of liver and spleen with probable mild splenomegaly. There has been near complete decompression of pancreatic pseudocyst with marsupialization with the stomach. Tail of the pancreas remains deformed without evidence of discrete mass. The gallbladder is unremarkable. No focal renal or adrenal gland abnormality is seen. There is no bowel obstruction. No significant ascites. Unopacified bladder is unremarkable. No focal inflammation or organized fluid collection is seen within the abdomen or pelvis. IMPRESSION: Near complete resolution of pancreatic pseudocyst which has been marsupialized to the stomach. No new abnormality or adverse change is identified. Dictated by: Dictated on workstation # [id number]
[2023-03-06 13:40] VITALS: BP 129/69
== END 2023-03-06 13:41 | disposition home or self-care (01) ==
LOC: EDUNIT# 11:12 → ER 11:14
DX: R10.13 Epigastric pain (principal); R10.12 Left upper quadrant pain; Z87.19 Personal history of other diseases of the digestive system; Z98.890 Other specified postprocedural states
CPT/HCPCS: 36415; 74177; 80053; 83690; 85025; 96374; 96375